=== PATIENT | male | born 1950 | race Caucasian/White ===

== ENCOUNTER 2019-08-24 15:55 | Outpatient (RCR) | payer MEDICARE, BC, SELFPAY ==
--- NOTE | 2019-08-24 16:46 | PTOPEVAL ---
Thank you for referring this patient to [facility]. Please review, sign, date and return this plan of care [facility]. I agree with and certify that the following plan of care is medically necessary. Referring Physician Date Admitting Provider: Attending Provider: PHYSICIAN NOT ON STAFF Referring Provider: *PT Outpatient Evaluation Start: 08/24/19 16:10 Freq: Status: Active Protocol: Document 08/24/19 16:10 Mary Lou (Rec: 08/24/19 16:37 [facility] [id number]) Therapy Assessment Status Assessment Status Assessment Status Evaluation Evaluation Information Problem Diagnosis R hip OA Onset 08/20/19 Subjective Information patient reports he has been Query Text:As Reported By Patient/ having pain in the R hip for Family about 6 months or more. he reports the pain is getting to be too severe to allow him to sleep or walk. he reports he has recently had x-rays of the R hip. he reports he has arthritis of the R hip. he reports he is not currently planning on having a R hip replacement. he reports the pain comes and goes. Prior Level of Function Comments Additional Prior Level of Function patient reports no injury. he Comments reports prior to 6 months ago, he was having some mild discomfort, but was able to complete all walking, sleeping , and functional activities. Pain Assessment Timing of Pain Assessment Timing of Pain Assessment Assessment Pain Scale Pain Scale Used Numeric (1 - 10) Self Report Pain Assessment Right Hip(s) Reported Pain Level 2 Pain Description Burning Pain Radiation Right Leg Radicular Pain Location down and across thigh into the medial R knee Pain Frequency Chronic,Continuous Current Pain Intensity 2 Lowest Pain Intensity 2 Greatest Pain Intensity 6 Pain Aggravating Factors Prolonged Position,Walking, Weight Bearing/Standing,Other Pain Aggravating Factors Other Pain Aggravating Factors sleeping Pain Relief Interventions Used By Medication Patient Pain Score Pain Score 2: Self Report Additional Pain Score Comments bilateral numbness/tingling in
== END 2019-09-22 14:55 | disposition home or self-care (01) ==
LOC: CHSPT 15:55
DX: M16.11 Unilateral primary osteoarthritis, right hip (principal)
CPT/HCPCS: 97014; 97110; 97140; 97161; G0283

== ENCOUNTER 2019-08-31 12:32 | Outpatient (CLI) | payer MEDICARE, BC, SELFPAY ==
[2019-09-02 10:05] LABS: Testosterone Total 318 ng/dL (250-1100)
== END 2019-08-31 12:33 | disposition home or self-care (01) ==
PROVIDERS: PCP Family Medicine
DX: N52.9 Male erectile dysfunction, unspecified (principal)
CPT/HCPCS: 36415; 84403

== ENCOUNTER 2019-09-03 12:54 | Outpatient (CLI) | payer MEDICARE, BC, SELFPAY ==
--- NOTE | ~2019-09-03 | US_ITS ---
US scrotum doppler INDICATION: Left testicular swelling for 5 days TECHNIQUE: Testicular sonogram utilizing grayscale and color Doppler FINDINGS: The testes are normal in size and appearance. No focal lesions are seen. The right testes measures 3 x 1.6 x 2.7 cm centimeters, and the left testis measures 3 x 1.7 x 2.7 cm cm. There is nor mal vascular flow to both testes. There is a 2.4 cm left epididymal cysts. There is a left varicocele. IMPRESSION: 1. Left varicocele. 2: 2.4 cm left epididymal cyst. Reviewed, dictated and finalized at location A. T TOSSER
== END 2019-09-03 12:55 | disposition home or self-care (01) ==
PROVIDERS: PCP Family Medicine
DX: N50.3 Cyst of epididymis (principal); I86.1 Scrotal varices
CPT/HCPCS: 76870; 93976

== ENCOUNTER 2021-07-11 13:43 | Outpatient (CLI) | payer MEDICARE, BC, SELFPAY ==
[2021-07-14 08:23] LABS: Tissue Transglutaminase IgA Ab <1.0 U/mL (<15.0)
[2021-07-14 18:52] LABS: Tissue Transglutaminase IgG Ab <1.0 U/mL (<15.0)
[2021-07-18 21:02] LABS: ANCA Screen Negative (Negative)
[2021-07-19 21:43] LABS: Endomysial Ab (IgA) Screen Negative (Negative)
[2021-08-25 13:06] LABS: Gliadin Gluten IgA 6.9
== END 2021-07-11 13:44 | disposition home or self-care (01) ==
PROVIDERS: PCP Family Medicine; Visit Provider Internal Medicine Gastroenterology
DX: R19.7 Diarrhea, unspecified (principal); K62.5 Hemorrhage of anus and rectum
CPT/HCPCS: 36415; 83516; 86021; 86255; 86671

== ENCOUNTER 2021-08-15 11:01 | Outpatient (CLI) | payer MEDICARE, BC, SELFPAY ==
[2021-08-15 11:55] LABS: Alanine Aminotransferase 77 U/L (4-50); Albumin Level 4.3 g/dL (3.5-5.1); Alkaline Phosphatase 85 U/L (38-126); Anion Gap 9 mmol/L (8-16); Aspartate Amino Transferase 55 U/L (17-59); Blood Urea Nitrogen 17 mg/dL (9-20); Calcium 9.2 mg/dL (8.4-10.2); Carbon Dioxide 20 mmol/L (22-30); Chloride 109 mmol/L (98-107); Cholesterol 190 mg/dL (0-200); Estimated Glomerular Filt Rate > 60; Glucose 121 mg/dL (65-110); HDL Direct 33 mg/dL; Sodium 138 mmol/L (137-145); Triglycerides 123 mg/dL (<150)
[2021-08-15 12:06] LABS: LDL Cholesterol Direct 109 mg/dL
[2021-08-15 12:53] LABS: Hemoglobin A1C 6.8 % (<5.7)
[2021-08-15 14:47] LABS: Basophils Absolute Auto 0.1 K/mm3 (0.0-0.1); Basophils Percent Auto 0.8 % (0.2-1.2); Eosinophils Absolute Auto 0.3 K/mm3 (0-0.3); Hemoglobin 14.6 g/dL (14.0-18.0); Immature Granulocyte Absolute 0.03 K/mm3 (0.00-0.031); Immature Granulocyte Percent A 0.3 % (0-0.5); Lymphocytes Absolute Auto 2.31 K/mm3 (0.9-3.2); Mean Corpuscular HGB Conc 33.2 g/dl (32-36); Mean Corpuscular Hemoglobin 31.1 pg (26-34); Mean Corpuscular Volume 93.6 fl (80-100); Mean Platelet Volume 10.3 fl (7.4-10.4); Monocytes Absolute Auto 1.1 K/mm3 (0.1-0.6); Monocytes Percent Auto 11.1 % (2.6-8.5); Neutrophils Absolute Auto 6.2 K/mm3 (1.3-6.7); Neutrophils Percent Auto 61.8 % (45.5-73.1); Platelet Count Result 195 k/mm3 (150-375); Red Cell Distribution Width 12.7 % (11.5-14.5)
== END 2021-08-15 11:02 | disposition home or self-care (01) ==
LOC: ANHLAB 11:04
PROVIDERS: PCP Family Medicine; Visit Provider Family Medicine
DX: E03.9 Hypothyroidism, unspecified (principal); I10 Essential (primary) hypertension; E78.2 Mixed hyperlipidemia; E11.9 Type 2 diabetes mellitus without complications
CPT/HCPCS: 36415; 80053; 80061; 83036; 84443; 85025

== ENCOUNTER 2021-08-29 09:16 | Outpatient (CLI) | payer MEDICARE, BC, SELFPAY ==
--- NOTE | ~2021-08-29 | US_ITS ---
EXAMINATION: US abdomen limited DATE: 08/29/2021 09:59 INDICATION: Abnormal liver function tests TECHNIQUE: Multiple grayscale and Doppler ultrasound images of the abdomen were obtained. COMPARISON: CT, 10/17/2012 FINDINGS: Bowel gas obscures visualization of the pancreas. The liver demonstrates increased echogeni city, heterogenous echotexture, and decreased through transmission. No surface nodularity. Normal hep atopetal flow in the main portal vein. The gallbladder is normal with no abnormal wall thickening, pe richolecystic fluid or stones. The normal common bile duct measures 3 mm. There was no sonographic Mu rphy sign. IMPRESSION: 1. Diffuse hepatic steatosis. Reviewed, dictated and finalized at location A. NCIAL PLANNING ADVISER
== END 2021-08-29 09:17 | disposition home or self-care (01) ==
LOC: ANHIMG 09:21
PROVIDERS: PCP Family Medicine; Visit Provider Family Medicine
DX: R74.8 Abnormal levels of other serum enzymes (principal); K76.0 Fatty (change of) liver, not elsewhere classified
CPT/HCPCS: 76705

== ENCOUNTER 2021-12-25 12:16 | Outpatient (CLI) | payer MEDICARE, BC, SELFPAY ==
[2021-12-25 12:38] LABS: Alanine Aminotransferase 25 U/L (6-50); Albumin Level 4.1 g/dL (3.5-5.1); Alkaline Phosphatase 73 U/L (38-126); Anion Gap 4 mmol/L (8-16); Aspartate Amino Transferase 24 U/L (17-59); Bilirubin,Total 0.9 mg/dL (0.2-1.3); Blood Urea Nitrogen 14 mg/dL (9-20); Calcium 8.7 mg/dL (8.4-10.2); Carbon Dioxide 26 mmol/L (22-30); Chloride 108 mmol/L (98-107); Estimated Glomerular Filt Rate > 60; Glucose 108 mg/dL (65-110); Potassium 4.2 mmol/L (3.4-5.0); Sodium 138 mmol/L (137-145)
== END 2021-12-25 12:17 | disposition home or self-care (01) ==
PROVIDERS: PCP Family Medicine; Visit Provider Nurse Practitioner Gerontology
DX: E11.9 Type 2 diabetes mellitus without complications (principal); R74.8 Abnormal levels of other serum enzymes
CPT/HCPCS: 36415; 80053; 83036

== ENCOUNTER 2024-06-02 12:22 | Outpatient (CLI) | payer MEDICARE, BC, SELFPAY ==
[2024-06-02 12:46] LABS: Basophils Absolute Auto 0.1 K/mm3 (0.0-0.1); Basophils Percent Auto 0.8 % (0.2-1.2); Eosinophils Absolute Auto 0.3 K/mm3 (0-0.3); Eosinophils Percent Auto 3.4 % (0-4.4); Hematocrit 43.5 % (42.0-52.0); Hemoglobin 14.5 g/dL (14.0-18.0); Immature Granulocyte Absolute 0.03 K/mm3 (0.00-0.031); Immature Granulocyte Percent A 0.4 % (0-0.5); Lymphocytes Absolute Auto 1.84 K/mm3 (0.9-3.2); Lymphocytes Percent Auto 24.2 % (18.3-44.2); Mean Corpuscular HGB Conc 33.3 g/dl (32-36); Mean Corpuscular Volume 92.9 fl (80-100); Mean Platelet Volume 9.7 fl (7.4-10.4); Monocytes Absolute Auto 0.7 K/mm3 (0.1-0.6); Monocytes Percent Auto 9.3 % (2.6-8.5); Neutrophils Absolute Auto 4.7 K/mm3 (1.3-6.7); Neutrophils Percent Auto 61.9 % (45.5-73.1); Platelet Count Result 211 k/mm3 (150-375); Red Blood Count 4.68 M/mm3 (4.6-6.20); Red Cell Distribution Width 12.6 % (11.5-14.5); White Blood Count 7.6 K/mm3 (4.5-10.0)
[2024-06-02 13:04] LABS: Alanine Aminotransferase 22 U/L (6-50); Alkaline Phosphatase 70 U/L (38-126); Anion Gap 3 mmol/L (4-12); Aspartate Amino Transferase 29 U/L (17-59); Bilirubin,Total 0.8 mg/dL (0.2-1.3); Blood Urea Nitrogen 16 mg/dL (9-20); Calcium 8.8 mg/dL (8.4-10.2); Carbon Dioxide 31 mmol/L (22-30); Chloride 105 mmol/L (98-107); Cholesterol 161 mg/dL (0-200); Estimated Glomerular Filt Rate > 60; Glucose 113 mg/dL (65-110); HDL Direct 33 mg/dL; Potassium 4.5 mmol/L (3.4-5.0); Sodium 139 mmol/L (137-145); Triglycerides 132 mg/dL (<150); Uric Acid 6.8 mg/dL (3.5-8.5)
[2024-06-02 13:15] LABS: LDL Cholesterol Direct 93 mg/dL
== END 2024-06-02 12:23 | disposition home or self-care (01) ==
PROVIDERS: PCP Family Medicine; Visit Provider Family Medicine
DX: E79.0 Hyperuricemia without signs of inflammatory arthritis and tophaceous disease (principal); E78.2 Mixed hyperlipidemia; I10 Essential (primary) hypertension
CPT/HCPCS: 36415; 80053; 80061; 84550; 85025

== ENCOUNTER 2024-06-16 08:25 | Outpatient (CLI) | payer MEDICARE, BC, SELFPAY ==
[2024-06-16 10:43] LABS: Hepatitis C Virus Antibody Negative (Negative)
== END 2024-06-16 08:26 | disposition home or self-care (01) ==
LOC: ANHLAB 08:26
PROVIDERS: PCP Family Medicine; Referring Provider Family Medicine; Visit Provider Physician Assistant
DX: Z00.00 Encounter for general adult medical examination without abnormal findings (principal); R73.9 Hyperglycemia, unspecified
CPT/HCPCS: 36415; 83036; 86803

== ENCOUNTER 2024-06-18 07:50 | Outpatient (CLI) | payer MEDICARE, BC, SELFPAY ==
[2024-06-18 11:37] LABS: Hemoglobin A1C 6.4 % (<5.7)
== END 2024-06-18 07:51 | disposition home or self-care (01) ==
PROVIDERS: PCP Family Medicine; Visit Provider Family Medicine
DX: R73.9 Hyperglycemia, unspecified (principal)
CPT/HCPCS: 36415; 83036

== ENCOUNTER 2024-08-21 08:10 | Outpatient (CLI) | payer MEDICARE, BC, SELFPAY ==
--- OUTSIDE RECORDS SUMMARY | 2024-08-21 08:26 | XMS_ITS | Referral Summary ---
Author Organization [facility] Phys[facility] Office Building [address] Address [address] [place] [address] Care Team Providers Care Filemaker Developer Name Role Phone No, Physician Primary Care Provider [phone] Encounters Date Type Department Care Team Description 08/13/2024 8:17 AM AIR TRAFFIC CONTROL SPECIALIST - 08/13/2024 11:59 PM AIR TRAFFIC CONTROL SPECIALIST Hospital Encounter [facility] [address] [place] [address] Abnormal weight loss Discharge Disposition: Discharge to home or self care from Last 3 Months Allergies No known active allergies Medications metFORMIN (GLUCOPHAGE) 500 mg tablet Take 500 mg by mouth 2 (two) times a day with meals. Active tamsulosin (FLOMAX) 0.4 mg extended release capsule Take 0.4 mg by mouth nightly. Active rosuvastatin (CRESTOR) 5 mg tablet Take 5 mg by mouth nightly. Active cholecalciferol (VITAMIN D-3) 2,000 unit capsule Take 2,000 Units by mouth nightly. Active calcium carbonate-vitam in D3 500 mg(1,250mg) -400 unit chewable tablet Take 2 tablets by mouth nightly. Active acidophilus-pec tin, citrus 100 million cell-10 mg capsule Take 1 capsule by mouth nightly. Active inulin (FIBER GUMMIES) 2 gram tablet,chewable Take 1 tablet/chew tab by mouth nightly as needed. Active celecoxib (CeleBREX) 100 mg capsuleIndicati ons:Postoperati ve Acute Pain Take 1 capsule (100 mg total) by mouth 2 (two) times a day 60 capsule 2 09/23/2018 Active celecoxib (CeleBREX) 100 mg capsuleIndicati ons:Osteoarthri tis Take 1 capsule (100 mg total) by mouth 2 (two) times a day 60 capsule 2 03/30/2019 Active sildenafil (VIAGRA) 100 mg tablet TK 1 T PO QD 1 HOUR B SEXUAL ACTIVITY PRN 06/26/2019 Active Active Problems Problem Noted Date Diagnosed Date COPD (chronic obstructive pulmonary disease) Diabetes 07/29/2018 Fusion of spine, cervical region 07/29/2018 Incomplete tear of right rotator cuff 03/31/2018 Assessment & Plan (03/31/2018 10:22 AM CDT): Patient does not have a full-thickness rotator cuff tear by MRI. He has chronic symptoms that have not respond to physical therapy and/or cortisone. As such would recommend open decompressive surgery of the shoulder with acromioplasty and subacromial decompression. If in the event the patient has a high-grade partial-thickness tear that is flapping on stable repair of the rotator cuff may be required. This generally could be performed comfortably with a deltoid mini splitting incision in conjunction with a pain pump. He was advised he has some underlying arthritis and may has some symptoms persist with the shoulder. Typically patients start physical therapy two weeks out from their surgery. He is facing cervical decompressive surgery and fusion by our learning development specialist this fall after his class reunion. He plans on seeing Dr. Fox to help coordinate surgery. If both can be done in the same setting he would prefer but if restrictions on the cervical work would prevent him from rehabbing the arm I would not recommend doing both at the same time. If Dr. Fox did not feel cervical surgery would interfere with is ability to attend therapy regarding the arm then both could be done at the same time. Complete tear of right rotator cuff 03/11/2018 Assessment & Plan (03/11/2018 12:10 PM CDT): Patient likely has a high-grade partial-thickness tear or full-thickness focal tear of the rotator cuff. Would recommend an MRI to evaluate the integrity of the cuff initiate appropriate treatment once results are available Social History Tobacco Use Types Packs/Day Years Used Date Smoking Tobacco: Former Cigarettes Q uit: 04/07/2018 Smokeless Tobacco: Never Tobacco Cessation:Counseling Given: Yes Comments:exposed to second hand smoke Alcohol Use Standard Drinks/Week Comments Yes 7 (1 standard drink = 0.6 oz pur e alcohol) PHQ-2 Answer Date Recorded PHQ-2 Score 0 09/20/2018 Sex and Gender Information Value Date Recorded Sex Assigned at Not on file Legal Sex Male 7:26 PM AIR TRAFFIC CONTROL SPECIALIST Gender Identity Male 09/24/2019 9:10 PM CDT Sexual Orientation Straight 09/24/2019 9: 08 PM CDT Last Filed Vital Signs Vital Sign Reading Time Taken Comments Blood Pressure 122/84 10/23/2018 8:51 AM CDT Pulse 69 07/29/2018 7:59 AM AIR TRAFFIC CONTROL SPECIALIST Temperature 36.6 C (97.9 F) 07/29/2018 7:59 AM AIR TRAFFIC CONTROL SPECIALIST Respiratory Rate 20 07/29/2018 7:59 AM AIR TRAFFIC CONTROL SPECIALIST Oxygen Saturation 92% 07/29/2018 8:27 AM AIR TRAFFIC CONTROL SPECIALIST Inhaled Oxygen Concentration - - Weight 92.5 kg (204 lb) 08/20/2019 9:22 AM AIR TRAFFIC CONTROL SPECIALIST Height 183.1 cm (6' 0.1 ) 08/20/2019 9:22 AM AIR TRAFFIC CONTROL SPECIALIST Body Mass Index 27.59 08/20/2019 9:22 AM AIR TRAFFIC CONTROL SPECIALIST Plan of Treatment Not on file Medical Devices Implanted Type Area Pharmacy Services Director Device Identifier Shelf Expiration Date Model / Serial / Lot Veena Spine [id number] Nba-C 8-10mm 5.6mm Level 2 Lock Spine Long Plate Bone - [id number] Implanted:Qty: 1 on 07/28/2018 by Jose Fox MD at [facility] N/A: Cervical-L umbar Spine Veena Spine 09/12/2022 [id number] / / [id number] [employer] [id number] Nba-C Vertebridge 17x6.2-9mm 7d Lordotic 14mm Taper Cage .8cc - [id number] Implanted:Qty: 1 on 07/28/2018 by Jose Fox MD at [facility] N/A: Cervical-L umbar Spine [employer] 03/15/2021 [id number] / / [id number] [employer] [id number] Nba-C Vertebridge 17x4.2-7mm 7d Lordotic 14mm Taper Cage .61cc - [id number] Implanted:Qty: 1 on 07/28/2018 by Jose Fox MD at [facility] N/A: Cervical-L umbar Spine [employer] 05/15/2022 [id number] / / [id number] Veena Spine [id number] Nba-C 5-7mm Level 2 Lock Spine Standard Plate Bone - [id number] Implanted:Qty: 1 on 07/28/2018 by Jose Fox MD at [facility] N/A: Cervical-L umbar Spine Veena Spine 08/15/2022 [id number] / / [id number] Explanted Type Area Pharmacy Services Director Device Identifier Shelf Expiration Date Model / Serial / Lot Pin Distraction [place] L12 Mm Self Drill Sterile Cervical Distractor System - [id number] Explanted:Qty: 2 on 07/28/2018 at [facility] N/A: Cervical-L umbar Spine [employer] [id number] / / Procedures Procedure Name Priority Date/Time Associated Diagnosis Comments CT ABDOMEN PELVIS W CONTRAST Schedule Routine, Read Routine (OP Routine) 08/13/2024 8:58 AM AIR TRAFFIC CONTROL SPECIALIST Abnormal weight loss EGFR Routine 07/29/2018 6:53 AM AIR TRAFFIC CONTROL SPECIALIST from Last 3 Months or Most Recently Relevant to Health Maintenance Results * CT Abdomen Pelvis W Contrast (08/13/2024 8:58 AM AIR TRAFFIC CONTROL SPECIALIST) Anatomical Region Laterality Modality Body N/A Computed Tomogra phy 08/14/2024 2:44 PM AIR TRAFFIC CONTROL SPECIALIST Narrative 08/14/2024 2:50 PM AIR TRAFFIC CONTROL SPECIALIST EXAM DESCRIPTION: CT ABDOMEN PELVIS W CONTRAST REASON FOR STUDY: abnormal weight loss Patient complains of bilateral epigastric pain on and off for the last year, last episode was yesterday. History of hernia repair TECHNIQUE: CT scan of the abdomen and pelvis performed with intravenous and without oral contrast using helical scanning technique with dynamic intravenous contrast injection. Reconstructed coronal and sagittal MPR images reviewed. All images stored on PACS. Automated exposure control was used as a dose optimization technique for this examination. CONTRAST TYPE/DOSE: 100mL of IOVERSOL 350 MG IODINE/ML INTRAVENOUS SYRINGE injected via intravenous COMPARISON: None FINDINGS: LOWER CHEST: No significant pulmonary abnormalities. No effusion. Moderate emphysematous changes at the lung bases. Calcified granulomas. LIVER: Decreased attenuation as seen with fibrofatty changes. 1 cm cyst right hepatic lobe. GALLBLADDER: No stones identified. No wall thickening or inflammatory changes. BILE DUCTS: No intrahepatic or extrahepatic ductal dilatation. SPLEEN: Normal size. No focal lesions. Calcified granulomas. PANCREAS: No identified cystic or solid masses. No significant calcifications. No adjacent inflammation or peripancreatic fluid collections. Pancreatic duct not dilated. ADRENALS: Normal. KIDNEYS/URINARY TRACT: 17 mm cyst right kidney. No visualized stones. No hydronephrosis or hydroureter. Symmetric enhancement. Urinary bladder is unremarkable. GI: No dilated bowel loops. No obvious wall thickening. Normal appendix. Scattered diverticular disease without diverticulitis. Small hiatal hernia. PERITONEUM: No ascites or free air. RETROPERITONEUM: No mass or adenopathy. REPRODUCTIVE: Enlarged prostate. Penile prosthesis with reservoir anterior left hemipelvis. VASCULATURE: No abdominal aortic aneurysm. MUSCULOSKELETAL: Multilevel degenerative changes are present without fracture. No concerning lesions are present. OTHER: Small bilateral inguinal hernias containing only fat, left greater than right. IMPRESSION: Moderate emphysematous changes at the lung bases. Fatty infiltration of the liver. 1 cm cyst right hepatic lobe. 17 mm cyst right kidney. Diverticulosis. No evidence of diverticulitis. Small hiatal hernia. Enlarged prostate. Small bilateral inguinal hernias containing only fat, left greater than right. THIS IS AN ELECTRONICALLY VERIFIED FINAL REPORT 08/14/2024 2:50 PM - Electronically signed by Zia Boyce M.D. KT T: Report ID: [id number] Reading Location: [id number] Procedure Note Zia Boyce MD - 08/14/2024 EXAM DESCRIPTION: CT ABDOMEN PELVIS W CONTRAST REASON FOR STUDY: abnormal weight loss Patient complains of bilateral epigastric pain on and off for the lastyear, last episode was yesterday. History of hernia repair TECHNIQUE: CT scan of the abdomen and pelvis performed with intravenousand without oral contrast using helical scanning technique with dynamic intravenous contrast injection. Reconstructed coronal and sagittal MPRimages reviewed. All images stored on PACS. Automated exposure control was usedas a dose optimization technique for this examination. CONTRAST TYPE/DOSE: 100mL of IOVERSOL 350 MG IODINE/ML INTRAVENOUSSYRINGE injected via intravenous COMPARISON: None FINDINGS: LOWER CHEST: No significant pulmonary abnormalities. Noeffusion. Moderate emphysematous changes at the lung bases. Calcified granulomas. LIVER: Decreased attenuation as seen with fibrofatty changes. 1 cm cyst right hepatic lobe. GALLBLADDER: No stones identified. No wall thickening or inflammatory changes. BILE DUCTS: No intrahepatic or extrahepatic ductal dilatation. SPLEEN: Normal size. No focal lesions. Calcified granulomas. PANCREAS: No identified cystic or solid masses. No significant calcifications. No adjacent inflammation or peripancreatic fluidcollections. Pancreatic duct not dilated. ADRENALS: Normal. KIDNEYS/URINARY TRACT: 17 mm cyst right kidney. No visualized stones.No hydronephrosis or hydroureter. Symmetric enhancement. Urinary bladderis unremarkable. GI: No dilated bowel loops. No obvious wall thickening. Normal appendix. Scattered diverticular disease without diverticulitis. Small hiatalhernia. PERITONEUM: No ascites or free air. RETROPERITONEUM: No mass or adenopathy. REPRODUCTIVE: Enlarged prostate. Penile prosthesis with reservoiranterior left hemipelvis. VASCULATURE: No abdominal aortic aneurysm. MUSCULOSKELETAL: Multilevel degenerative changes are present without fracture. No concerning lesions are present. OTHER: Small bilateral inguinal hernias containing only fat, leftgreater than right. IMPRESSION: Moderate emphysematous changes at the lung bases. Fatty infiltration of the liver. 1 cm cyst right hepatic lobe. 17 mm cyst right kidney. Diverticulosis. No evidence of diverticulitis. Small hiatal hernia. Enlarged prostate. Small bilateral inguinal hernias containing only fat, left greater thanright. THIS IS AN ELECTRONICALLY VERIFIED FINAL REPORT 08/14/2024 2:50 PM - Electronically signed by Zia Boyce M.D. KT T: Report ID: [id number] Reading Location: [place] [address] Indira Castano MD IMG CT PROCEDURES Final R esult * eGFR (07/29/2018 6:53 AM AIR TRAFFIC CONTROL SPECIALIST) eGFR 96 mL/min/1.7 3 m2 EVAN MERCER Comment: Interpretive Data Reference Interval Normal >/= 90 mL/min/1.73m2 Mildly decreased* 60 - 89 mL/min/1.73m2 Mildly to moderately decreased 45 - 59 mL/min/1.73m2 Moderately to severely decreased 30 - 44 mL/min/1.73m2 Severely decreased 15 - 29 mL/min/1.73m2 Kidney Failure < 15 mL/min/1.73m2 *Relative to young adult level If -Maldivian multiply value by 1.16. Estimated glomerular filtration rate is determined by the CKD-EPI equation recommended by the National Kidney Foundation (KDIGO 2012 Clinical Practice Guideline for the Evaluation and Management of Chronic Kidney Disease. Kidney Intnl Suppl Jul 2012;3:1). The CKD-EPI equation should not be used for patients with unstable renal function and has not been validated in children and those over 70. Current interpretive data was last reviewed 2016. Blood specimen (specimen) 07/29/2018 6:53 AM AIR TRAFFIC CONTROL SPECIALIST 07/29/2018 7:36 AM AIR TRAFFIC CONTROL SPECIALIST Narrative EVAN MERCER - 07/29/2018 8:01 AM AIR TRAFFIC CONTROL SPECIALIST Heike LUCERO LAB BLOOD ORDERABLES Final R esult [facility]AN [address] [address] Department [place] [address] from Last 3 Months or Most Recently Relevant to Health Maintenance Insurance MEDICARE MEDICARE [employer] TRADITIONAL OOS Advance Directives For more information, please contact: [phone] * Full Code (Latest Code Status on File) Date Activated Date Inactivated Comments 07/28/2018 2:06 PM 07/29/2018 2:58 PM Care Teams Filemaker Developer Relationship Specialty Start Date End Date No, Physician PCP - General 08/06/24
--- OUTSIDE RECORDS SUMMARY | 2024-08-21 08:26 | XMS_ITS | Referral Summary ---
Author Organization [facility] Address [address] [place] [address] Care Team Providers Care Explosive Operator Bomb Name Role Phone Terrie Oneill MD Primary Care Provider + Source Comments [facility],non-owned Affiliates and Associated Physician Practices is amultiple site organization consisting of ambulatory clinics and hospital sitesin [place], [place], [place] and [place]. This disclosure is being madepursuant to the Care Everywhere program and may not contain all information available regarding this patient. Last updated 18.[facility] Encounters Date Type Department Care Team Description 06/16/2024 Travel 06/16/2024 10:30 AM REGION MANAGER Office Visit [facility] - Urology [address] [place] [address], [facility] [place] [id number] Autumn Hunter, AUTOMATIC SPINNING LATHE SETTER-FAMILY AND CONSUMER SCIENCE PROFESSOR Benign prostatic hyperplasia, unspecified whether lower urinary tract symptoms present (Primary Dx); Left inguinal pain 06/10/2024 Travel from Last 3 Months Allergies Active Allergy Reactions Criticality Noted Date Comments Ibuprofen Vomiting 08/18/2021 Medications * Be aware that medications may not be up to date on this document. Alwaysverify current medications with the patient. Medication Sig Dispensed Refills Start Date End Date Status ascorbic acid (VITAMIN C) 125 MG TABS half tablet Take by mouth once daily Active VITAMIN D, CHOLECALCIFEROL, PO Take 1 Dose by mouth once daily Active aspirin EC (ECOTRIN) 81 MG tablet Take 1 (one) tablet by mouth once daily Active cholestyramine light (QUESTRAN LIGHT; PREVALITE) 4 g packet Take 9 g by mouth 3 times daily Active magnesium 30 MG tablet Take 400 mg by mouth once daily Active omeprazole (PriLOSEC) 20 MG capsule Take 1 (one) capsule by mouth daily before breakfast Active tamsulosin (Flomax) 0.4 MG capsule Take 1 (one) capsule by mouth once daily At the same time every day after a meal. 90 capsule 4 06/16/2024 Active finasteride (Proscar) 5 MG tablet Take 1 (one) tablet by mouth once daily 90 tablet 4 06/16/2024 Active Active Problems Problem Noted Date Diagnosed Date Impotence due to erectile dysfunction 04/14/2020 Displacement of penile prosthesis implant Urinary frequency Urinary urgency Immunizations Name Administration Dates Next Due INFLUENZA VACCINE, TRIV. (AF LURIA, FLUZONE TRIVALENT; 6MO+) (IIV3) 04/15/2015,04/03/2014 INFLUENZA VACCINE 04/03/2011 INFLUENZA VACCINE, HIGH-DOSE , QUADR. (FLUZONE HIGH-DOSE QUADRIVALENT; 65Y+), 0.7 ML (HD-IIV4) 04/21/2018,04/07/2017,03/15/2016 PNEUMOCOCCAL PPSV23 04/21/2017 Pneumococcal Pcv13 Conj 04/17/2016 TDAP (7yrs+) 04/17/2010 ZOSTER VACCINE, LIVE 04/17/2016 Social History Tobacco Use Types Packs/Day Years Used Date Smoking Tobacco: Former Cigarettes Smokeless Tobacco: Former Tobacco Cessation:Counseling Given: No Comments:quit 2020 Alcohol Use Standard Drinks/Week Comments Yes 2 (1 standard drink = 0.6 oz pur e alcohol) socially Sex and Gender Information Value Date Recorded Sex Assigned at Not on file Gender Identity Not on file Sexual Orientation Not on file Last Filed Vital Signs Vital Sign Reading Time Taken Comments Blood Pressure 138/81 06/16/2024 10:12 AM REGION MANAGER Pulse 65 06/16/2024 10:12 AM REGION MANAGER Temperature 36.3 C (97.3 F) 06/16/2024 10:12 AM REGION MANAGER Respiratory Rate 18 06/16/2024 10:12 AM REGION MANAGER Oxygen Saturation 99% 06/16/2024 10:12 AM REGION MANAGER Inhaled Oxygen Concentration - - Weight 93.4 kg (206 lb) 06/16/2024 10:12 AM REGION MANAGER Height 182.9 cm (6') 06/16/2024 10:12 AM REGION MANAGER Body Mass Index 27.94 06/16/2024 10:12 AM REGION MANAGER Plan of Treatment Upcoming Encounters Date Type Department Care Team (Late st Contact Info) Description 12/15/2024 11:30 AM CDT Office Visit [facility] - Urology [address] [place] [address], [place] [address] Autumn Hunter, AUTOMATIC SPINNING LATHE SETTER-FAMILY AND CONSUMER SCIENCE PROFESSOR [address] [place] [address] [place] [address] Medical Devices Implanted Type Area Interlocking Pavement Installer Device Identifier Shelf Expiration Date Model / Serial / Lot Pros Penl Ams 700 Ms Electrician Helper Powerhouse Ams Conceal Implanted:Qty: 1 on 04/14/2020 by Derek Ovalle MD at [facility] N/A: Penis [place] [employer] 03/15/2022 [id number] / / [id number] Description:apart of total Kit Acc Ams 700 Penl Pros Implanted:Qty: 1 on 04/14/2020 by Derek Ovalle MD at [facility] N/A: Penis [place] [employer]ed 09/01/2024 [id number] / / [id number] Description:apart of total Ams 700 Cx Ms Pump Iz Implanted:Qty: 1 on 04/14/2020 by Derek Ovalle MD at [facility] N/A: Penis 10/16/2020 [id number] / / [id number] Pros Penl Ams 700 Ms Electrician Helper Powerhouse Ams Conceal Implanted:Qty: 1 on 12/15/2020 by Derek Ovalle MD at [facility] Left: Sandra Garcia [employer] Scimed 11/08/2022 [id number] / / [id number] Kit Acc Ams 700 Penl Pros Implanted:Qty: 1 on 12/15/2020 by Derek Ovalle MD at [facility] Left: Sandra Garcia [employer] Sc[employer]ed [id number] / / Description:apart of total Procedures Procedure Name Priority Date/Time Associated Diagnosis Comments NE MSR PVR U&/BLADD CAPCTY US NON Routine 06/16/2024 10:18 AM REGION MANAGER Benign prostatic hyperplasia, unspecified whether lower urinary tract symptoms present from Last 3 Months Results * NE MSR PVR U&/BLADD CAPCTY US NON (06/16/2024 10:18 AM REGION MANAGER) Narrative Ryan Dickson LPN - 06/16/2024 10:18 AM REGION MANAGER Ryan Dickson LPN 06/16/2024 1:42 PM PVR-52ml Autumn Hunter APRN-FAMILY AND CONSUMER SCIENCE PROFESSOR PROCEDURE/MINOR SURGICAL ORDERABLES from Last 3 Months Advance Directives * Full Code (Latest Code Status on File) Date Activated Date Inactivated Comments 12/15/2020 10:15 AM 12/16/2020 10:57 AM * Full Code Date Activated Date Inactivated Comments 04/14/2020 6:31 PM 04/15/2020 2:24 PM Care Teams Explosive Operator Bomb Relationship Specialty Start Date End Date Terrie Oneill MD [address] [place] [address] PCP - General 08/20/19
--- OUTSIDE RECORDS SUMMARY | 2024-08-21 08:26 | XMS_ITS | Clinical Summary ---
Author Organization [facility] Address [address] [place] [id number] Care Team Providers Care Mechanic Assistant Name Role Phone Terrie Oneill MD Primary Care Provider [phone] Social History Tobacco Use Types Packs/Day Years Used Date Smoking Tobacco: Never Assessed Sex and Gender Information Value Date Recorded Sex Assigned at Not on file Legal Sex Male 8:22 PM CDT Gender Identity Not on file Sexual Orientation Not on file Plan of Treatment Health Maintenance Due Date Last Done Comments Colorectal Cancer Screening Colonoscopy (10 Years) 1950 Hepatitis C 1968 Annual Medicare Wellness Visit 2015 Zoster Vaccines (2 of 3) 06/12/2016 04/17/2016 DTaP, Tdap and Td Vaccines (2 - Td or Tdap) 04/17/2020 04/17/2010 COVID-19 Vaccine (3 - season) 2024 04/11/2021, 03/21/2021 Influenza Adult (#1) 2024 04/21/2018, 04/07/2017, 03/15/2016, Additional history exists RSV Immunization or 60+ Years (1 - 1-dose 75+ series) 2025 Pneumococcal Vaccine: 65+ Years Completed 04/21/2017, 04/17/2016 Meningococcal B Vaccine Aged Out No l onger eligible based on patient's age to complete this topic Meningococcal Vaccine Aged Out No melanie lonnie eligible based on patient's age to complete this topic RSV Immunizations Under 20 Months Aged Out No longer eligible based on patient's age to complete this topic Insurance MEDICARE [facility] Care Teams Mechanic Assistant Relationship Specialty Start Date End Date Terrie Oneill MD [address] [facility] [address] [place] [address] PCP - General FAMILY PRACTICE 05/25/22
--- OUTSIDE RECORDS SUMMARY | 2024-08-21 08:26 | XMS_ITS | Clinical Summary ---
[facility] [address] [place] [id number] Care Team Providers Care Allergist Immunologist Name Role Phone No, Physician Primary Care Provider [phone] Allergies No known active allergies Medications metFORMIN [...] cervical decompressive surgery and fusion by our prepress specialist this fall after his class reunion. [...] initiate appropriate treatment once results are available Encounters Date Type Department Care Team Description 08/13/2024 8:17 AM INVENTORY CONTROL PLANNER - 08/13/2024 11:59 PM INVENTORY CONTROL PLANNER Hospital Encounter [facility] [address] [place] [address] Abnormal weight loss Discharge Disposition: Discharge to home or self care from Last 3 Months Surgical History Surgery Date Site/Laterality Comments CARPAL TUNNEL RELEASE Bilateral LASIK CATARACT EXTRACTION HERNIA REPAIR 07/15/2015 - 07/14/2016 UHR ABELARDO FUNDOPLICATION 07/15/1999 - 07/14/2000 VASECTOMY SHOULDER ARTHROSCOPY 05/14/2018 Right Right Shoulder - Subacromial Decompression, Acromioplasty, and Pain Pump Insertion - Right DE QUERVAIN'S RELEASE Left Medical History Medical History Date Comments COPD (chronic obstructive pulmonary disease) (HC C) Sleep apnea Diabetes (HCC) Rotator cuff injury right Cataract Family History Medical History Relation Name Comments Cancer Brother 1 liver Cirrhosis Brother 1 Heart disease Brother 1 No Known Problems Brother 2 Alcohol abuse Father Cirrhosis Father Arrhythmia Mother Bradley's palsy Sister Relation Name Status Comments Brother 1 Brother 2 Alive Father Mother Sister Alive Social History Tobacco Use Types Packs/Day Years [...] on file Legal Sex Male 7:26 PM INVENTORY CONTROL PLANNER Gender Identity Male 09/24/2019 9:10 PM CDT Sexual Orientation Straight 09/24/2019 9: 08 PM CDT Obstetrics History Last Filed Vital Signs Vital Sign Reading Time Taken Comments Blood Pressure 122/84 10/23/2018 8:51 AM CDT Pulse 69 07/29/2018 7:59 AM INVENTORY CONTROL PLANNER Temperature 36.6 C (97.9 F) 07/29/2018 7:59 AM INVENTORY CONTROL PLANNER Respiratory Rate 20 07/29/2018 7:59 AM INVENTORY CONTROL PLANNER Oxygen Saturation 92% 07/29/2018 8:27 AM INVENTORY CONTROL PLANNER Inhaled Oxygen Concentration - - Weight 92.5 kg (204 lb) 08/20/2019 9:22 AM INVENTORY CONTROL PLANNER Height 183.1 cm (6' 0.1 ) 08/20/2019 9:22 AM INVENTORY CONTROL PLANNER Body Mass Index 27.59 08/20/2019 9:22 AM INVENTORY CONTROL PLANNER Plan of Treatment Health Maintenance Due Date Last Done Comments Albumin Creatinine Ratio, Urine 1950 Colon Cancer Screening-Colonoscopy 1950 Depression Screening 1950 Fall Risk Assessment 1950 Hemoglobin A1C 1950 Hepatitis C Screening 1950 Dilated Eye Exam 1950 Foot Exam 1950 Lipid Panel 1950 Hepatitis B Screening 1968 Well Visit 65+ 2015 Zoster Vaccine (2 of 3) 06/12/2016 04/17/2016 eGFR 07/29/2019 07/29/2018, 07/21/2018 DTaP/Tdap/Td Vaccine (2 - Td or Tdap) 04/17/2020 04/17/2010 Influenza Vaccine (#1) 2024 8, 04/07/2017, 03/15/2016, Additional history exists Pneumococcal vaccine 65+ Completed 04/21/2017, 10/2015 Abdominal Aortic Aneurysm (A AA) Screen Completed 08/13/2024 Medical Devices Implanted Type Area Hand Tufter Device Identifier Shelf Expiration Date Model / Serial / Lot [employer] [id number] Nba-C 8-10mm 5.6mm Level 2 Lock Spine Long Plate Bone - [id number] Implanted:Qty: 1 on 07/28/2018 by Jose Fox MD at [facility] N/A: Cervical-L umbar Spine [employer] 09/12/2022 [id number] / / [id number] [employer] [id number] Nba-C Vertebridge 17x6.2-9mm 7d Lordotic 14mm Taper Cage .8cc - [id number] Implanted:Qty: 1 on 07/28/2018 by Jose Fox MD at [facility] N/A: Cervical-L umbar Spine [employer] 03/15/2021 [id number] / / [id number] [employer] [id number] Nba-C Vertebridge 17x4.2-7mm 7d Lordotic 14mm Taper Cage .61cc - [id number] Implanted:Qty: 1 on 07/28/2018 by Jose Fox MD at [facility] N/A: Cervical-L umbar Spine [employer] 05/15/2022 [id number] / / [id number] [employer] [id number] Nba-C 5-7mm Level 2 Lock Spine Standard Plate Bone - [id number] Implanted:Qty: 1 on 07/28/2018 by Jose Fox MD at [facility] N/A: Cervical-L umbar Spine [employer] 08/15/2022 [id number] / / [id number] Explanted Type Area Hand Tufter Device Identifier Shelf Expiration Date Model / Serial / Lot Pin Distraction Trent L12 Mm Self Drill Sterile Cervical Distractor System - [id number] Explanted:Qty: 2 on 07/28/2018 at [facility] N/A: Cervical-L umbar Spine [employer] [id number] / / Procedures Procedure Name Priority Date/Time Associated Diagnosis Comments CT ABDOMEN PELVIS W CONTRAST Schedule Routine, Read Routine (OP Routine) 08/13/2024 8:58 AM INVENTORY CONTROL PLANNER Abnormal weight loss EGFR Routine 07/29/2018 6:53 AM INVENTORY CONTROL PLANNER from Last 3 Months or Most Recently Relevant to Health Maintenance Results * CT Abdomen Pelvis W Contrast (08/13/2024 8:58 AM INVENTORY CONTROL PLANNER) Anatomical Region Laterality Modality Body N/A Computed Tomogra phy 08/14/2024 2:44 PM INVENTORY CONTROL PLANNER Narrative 08/14/2024 2:50 PM INVENTORY CONTROL PLANNER EXAM DESCRIPTION: CT ABDOMEN PELVIS W CONTRAST [...] Zia Boyce M.D. KT T: Report ID: [id number] Reading Location: [id number] Procedure Note Zia Boyce MD - 08/14/2024 [...] Zia Boyce M.D. KT T: Report ID: [id number] Reading Location: [place] [address] Indira Castano MD IMG CT PROCEDURES Final R esult * eGFR (07/29/2018 6:53 AM INVENTORY CONTROL PLANNER) eGFR 96 mL/min/1.7 3 m2 EVAN MERCER Comment: Interpretive Data Reference Interval Normal >/= 90 mL/min/1.73m2 Mildly decreased* 60 - 89 mL/min/1.73m2 Mildly to moderately decreased 45 - 59 mL/min/1.73m2 Moderately to severely decreased 30 - 44 mL/min/1.73m2 Severely decreased 15 - 29 mL/min/1.73m2 Kidney Failure < 15 mL/min/1.73m2 *Relative to young adult level If -[place] multiply value by 1.16. Estimated glomerular filtration [...] 2016. Blood specimen (specimen) 07/29/2018 6:53 AM INVENTORY CONTROL PLANNER 07/29/2018 7:36 AM INVENTORY CONTROL PLANNER Narrative EVAN MERCER - 07/29/2018 8:01 AM INVENTORY CONTROL PLANNER Heike [facility] LAB BLOOD ORDERABLES Final R esult [facility] [id number] [address] [place] [address] from Last 3 Months or Most Recently Relevant to Health Maintenance Insurance MEDICARE MEDICARE [employer] Advance Directives For more information, please contact: [phone] * Full Code (Latest Code Status on File) Date Activated Date Inactivated Comments 07/28/2018 2:06 PM 07/29/2018 2:58 PM Care Teams Allergist Immunologist Relationship Specialty Start Date End Date No, Physician PCP - General 08/06/24
--- OUTSIDE RECORDS SUMMARY | 2024-08-21 08:26 | XMS_ITS | Patient Health Summary ---
Author Organization [facility] Address [address] [place] [address] Care Team Providers Care Good Humor Vendor Name Role Phone Terrie Oneill MD Primary Care Provider + Note from [facility] [place],non-owned Affiliates and Associated Physician Practices is amultiple site organization consisting of ambulatory clinics and hospital sitesin [place], [place], [place] and [place]. This disclosure is being madepursuant to the Care Everywhere program and may not contain all information available regarding this patient. Last updated 18.[facility] Allergies * Ibuprofen(Vomiting) Medications * Be aware that medications may not be up to date on this document. Alwaysverify current medications with the patient. * ascorbic acid (VITAMIN C) 125 MG TABS half tablet Take by mouth once daily * VITAMIN D, CHOLECALCIFEROL, PO Take 1 Dose by mouth once daily * aspirin EC (ECOTRIN) 81 MG tablet Take 1 (one) tablet by mouth once daily * cholestyramine light (QUESTRAN LIGHT; PREVALITE) 4 g packet Take 9 g by mouth 3 times daily * magnesium 30 MG tablet Take 400 mg by mouth once daily * omeprazole (PriLOSEC) 20 MG capsule Take 1 (one) capsule by mouth daily before breakfast * tamsulosin (Flomax) 0.4 MG capsule(Started 06/16/2024) Take 1 (one) capsule by mouth once daily At the same time every day after a meal. 4 refills by 06/16/2025 * finasteride (Proscar) 5 MG tablet(Started 06/16/2024) Take 1 (one) tablet by mouth once daily 4 refills by 06/16/2025 Active Problems Problem Noted Date Diagnosed Date Impotence due to erectile dysfunction 04/14/2020 Displacement of penile prosthesis implant Urinary frequency Urinary urgency Immunizations * INFLUENZA VACCINE, TRIV. (AFLURIA, FLUZONE TRIVALENT; 6MO+) (IIV3)(Given 04/15/2015, 04/03/2014) * INFLUENZA VACCINE(Given 04/03/2011) * INFLUENZA VACCINE, HIGH-DOSE, QUADR. (FLUZONE HIGH-DOSE QUADRIVALENT; 65Y+), 0.7 ML (HD-IIV4)(Given 04/21/2018, 04/07/2017, 03/15/2016) * PNEUMOCOCCAL PPSV23(Given 04/21/2017) * Pneumococcal Pcv13 Conj(Given 04/17/2016) * TDAP (7yrs+)(Given 04/17/2010) * ZOSTER VACCINE, LIVE(Given 04/17/2016) Social History Tobacco Use Types Packs/Day Years [...] Comments Blood Pressure 138/81 06/16/2024 10:12 AM EGG CRATER Pulse 65 06/16/2024 10:12 AM EGG CRATER Temperature 36.3 C (97.3 F) 06/16/2024 10:12 AM EGG CRATER Respiratory Rate 18 06/16/2024 10:12 AM EGG CRATER Oxygen Saturation 99% 06/16/2024 10:12 AM EGG CRATER Inhaled Oxygen Concentration - - Weight 93.4 kg (206 lb) 06/16/2024 10:12 AM EGG CRATER Height 182.9 cm (6') 06/16/2024 10:12 AM EGG CRATER Body Mass Index 27.94 06/16/2024 10:12 AM EGG CRATER Medical Devices Implanted Type Area Computer Security Coordinator Device Identifier Shelf Expiration Date Model / Serial / Lot Pros Penl Ams 700 Ms Student Ams Conceal Implanted:Qty: 1 on 04/14/2020 by Derek Ovalle MD at [facility] N/A: Penis [employer] 03/15/2022 [id number] / / [id number] Description:apart of total Kit Acc Ams 700 Penl Pros Implanted:Qty: 1 on 04/14/2020 by Derek Ovalle MD at [facility] N/A: Penis [employer] 09/01/2024 [id number] / / [id number] Description:apart of total Ams 700 Cx Ms Pump Iz Implanted:Qty: 1 on 04/14/2020 by Derek Ovalle MD at [facility] N/A: Penis 10/16/2020 [id number] / / [id number] Pros Penl Ams 700 Ms Student Ams Conceal Implanted:Qty: 1 on 12/15/2020 by Derek Ovalle MD at [facility] Left: Groin [employer] 11/08/2022 [id number] / / [id number] Kit Acc Ams 700 Penl Pros Implanted:Qty: 1 on 12/15/2020 by Derek Ovalle MD at [facility] Left: Groin [employer] [id number] / / Description:apart of total Procedures * IL MSR PVR U&/BLADD CAPCTY US NON(Performed 06/16/2024) Performed for Benign prostatic hyperplasia, unspecified whether lower urinary tract symptoms present * URINALYSIS AUTO - POINT OF CARE (AMB) [facility](Performed 06/15/2022) Performed for Urinary frequency * PATHOLOGY TISSUE(Performed 12/15/2020) Performed for Displacement of penile prosthesis implant, initial encounter (HCC) * ENDOTRACHEAL TUBE NOTE(Performed 12/15/2020) * IL CYSTOURETHROSCOPY(Performed 12/15/2020) Performed for Displacement of penile prosthesis implant, initial encounter (FORM[facility]LY [facility]) * INSERTION PENILE PROSTHESIS (ANY TYPE)(Performed 12/15/2020) Performed for Displacement of penile prosthesis implant, initial encounter (FORMER[facility]) * SARS-COV-2 (COVID-19) IN HOUSE(Performed 12/13/2020) Performed for Displacement of penile prosthesis implant, sequela, Urinary frequency, Pre-op testing * URINALYSIS NO MICROSCOPIC NO CULTURE(Performed 12/01/2020) Performed for Displacement of penile prosthesis implant, sequela, Urinary frequency, Pre-op testing * BASIC METABOLIC PANEL (CALCIUM TOTAL)(Performed 12/01/2020) Performed for Displacement of penile prosthesis implant, sequela, Urinary frequency, Pre-op testing * CBC W AUTO DIFFERENTIAL(Performed 12/01/2020) Performed for Displacement of penile prosthesis implant, sequela, Urinary frequency, Pre-op testing * CULTURE URINE(Performed 12/01/2020) Performed for Displacement of penile prosthesis implant, sequela, Urinary frequency, Pre-op testing * IL ANAL/URINARY MUSCLE STUDY(Performed 06/24/2020) Performed for Frequency of micturition , Urinary urgency * IL CYSTOMETROGRAM W/PETROLEUM TRANSPORT DRIVER(Performed 06/24/2020) Performed for Frequency of micturition , Urinary urgency * INSERTION PENILE PROSTHESIS (ANY TYPE)(Performed 04/14/2020) Performed for Erectile dysfunction, unspecified erectile dysfunction type * ENDOTRACHEAL TUBE NOTE(Performed 04/14/2020) * SARS-COV-2 (COVID-19) IN HOUSE(Performed 04/09/2020) Performed for COVID-19 ruled out by laboratory testing * URINALYSIS NO MICROSCOPIC NO CULTURE(Performed 04/06/2020) Performed for Impotence due to erectile dysfunction, Pre-op testing * CULTURE URINE(Performed 04/06/2020) Performed for Bacteriuria , Impotence due to erectile dysfunction, Pre-op testing * HEMOGLOBIN A1C(Performed 04/06/2020) Performed for Hyperglycemia, unspecified , Impotence due to erectile dysfunction, Pre-op testing, Screening for diabetes mellitus, Bacteriuria * BASIC METABOLIC PANEL (CALCIUM TOTAL)(Performed 04/06/2020) Performed for Impotence due to erectile dysfunction, Pre-op testing * CBC W AUTO DIFFERENTIAL(Performed 04/06/2020) Performed for Impotence due to erectile dysfunction, Pre-op testing * IL MSR PVR U&/BLADD CAPCTY US NON(Performed 12/03/2019) Performed for Benign prostatic hyperplasia without lower urinary tract symptoms * URINALYSIS AUTO - POINT OF CARE (AMB) [facility](Performed 12/03/2019) Performed for Benign prostatic hyperplasia without lower urinary tract symptoms * URINALYSIS AUTO - POINT OF CARE (AMB) [facility](Performed 08/31/2019) Performed for Benign prostatic hyperplasia with urinary frequency Results * IL MSR PVR U&/BLADD CAPCTY US NON (06/16/2024 10:18 AM EGG CRATER) Narrative Ryan Dickson LPN - 06/16/2024 10:18 AM EGG CRATER Ryan Dickson LPN 06/16/2024 1:42 PM PVR-52ml Autumn Hunter BUSINESS JOB TITLES-SPINNER CONTINUOUS PROCEDURE/MINOR SURGICAL ORDERABLES * URINALYSIS AUTO - POINT OF CARE (AMB) [facility] (06/15/2022 11:40 AM EGG CRATER) Only the most recent of3 resultswithin the time period is included. Glucose UA neg Bilirubin UA POCT neg Ketones UA POCT neg Specific [place] UA 1.020 Blood Urine POCT neg pH UA 5.5 Protein UA neg Urobilinogen UA neg Nitrite UA neg WBC UA neg Urine URINE / Unknown 06/15/2022 1 1:40 AM EGG CRATER Derek Ovalle MD LAB - POINT OF CAR E ORDERABLES * PATHOLOGY TISSUE (12/15/2020 8:42 AM CDT) Case Report Surgical Pathology Report Case: [id number] Authorizing Provider: Derek Ovalle MD Collected: 12/15/2020 08:42 AM Ordering Location: [facility] OP Received: 12/15/2020 11:35 AM Pathologist: Manuel Brumfield MD Specimen: Foreign Object, Penile 12/26/2020 3:09 PM CDT [facility] Final Diagnosis Foreign body, removal: - Grossly unremarkable medical hardware 12/26/2020 3:09 PM CDT [facility] PATH[facility] LAB Microscopic Description and Comment Gross only diagnosis 12/26/2020 3:09 PM CDT [facility] PATHOLOG[facility] Clinical History Herniated penile prosthesis 12/26/2020 3:09 PM CDT [facility] PATH[facility] Gross Description The requisition and specimen label(s) are identified with the patient's name,Scott Viveros. Received fresh, specimen A , is a fluid-filled transparent bag 6 x 5 cm with a narrow tubing 4 x 2 cm. No inscriptions on the device. This is for gross exam only. MA 12/26/2020 3:09 PM CDT [facility] PATH[facility] Disclaimer The performance characteristics of all immunohistochemical and indirect immunofluorescence stains (if any) cited in this report were determined by the Histopathology Laboratory of [facility]. Some of these tests were developed by our own laboratory and have not been cleared or approved by the US Food and Drug Administration. The FDA does not require this test to go through premarket FDA review. These tests are used for clinical purposes. They should not be regarded as investigational or for research. This laboratory is certified under the Clinical Laboratory Improvement Amendments (CLIA) as qualified to perform high complexity clinical laboratory testing. This case has been personally reviewed and interpreted by the attending (teaching) pathologist. 12/26/2020 3:09 PM CDT [facility] PATH[facility] Embedded Images 12/26/2020 3:09 PM T [facility] PATH[facility] Gross only MISCELLANEOUS SAMPLES / Unknown 12/15/2020 8:42 AM CDT 12/15/2020 11:35 AM CDT Comment:Pre-op diagnosis: Displacement of penile prosthesis implant, initial encounter Derek Ovalle MD LAB - PATHOLOGY/CY TOLOGY ORDERABLES Performing Organization Address City/State/[facility] Co de Phone Number [facility] PATHOLOG[facility] LAB [address] [place] [address], [facility] [phone] * ETT LINE PERFORMABLE (12/15/2020 8:33 AM CDT) Narrative Candy Villeda DO - 12/15/2020 8:33 AM CDT Candy Villeda DO 12/15/2020 9:20 AM Endotracheal Tube Placement: Patient Location: OR. Intubation Event Date/Time: 12/15/2020 8:00 AM Procedure: intubation (85830). Procedure Section: Sedation: IV sedation. Induction: standard IV Patient Position: sniffing Mask Ventilation: difficult and required 2 people (2 handed). Blade Type: Video Blade Size: 3 Laryngoscopy View: grade 2 (partial cords) Intubation Adjuncts: cricoid pressure, video laryngoscope, stylet and Eschmann introducer Tube: endotracheal tube Placement: oral Tube type: cuff - inflated Tube Size (MM): 7 Measured From: teeth Cuff Inflated With: air Number of Attempts: 2. Placement Verified By: bilateral breath sounds, chest auscultation and CO2 monitor Tube secured with: adhesive tape. Dentition unchanged? Yes Difficult Airway? Yes. Technique: video laryngoscope Reason: anterior larynx and small mouth Procedure Start Time: 12/15/2020 8:00 AM. Staff Section Anesthesia Provider: Judy Arias MD Provider #1: Candy Villeda DO. Provider #2: Hawa Page, BUSINESS JOB TITLES-MACHINIST BENCH, Performed the procedure. Additional Comments: Difficult anterior airway with small mouth. initially attempted Mac 3 DL with 8.0 ETT. Ultimately required video scope with eschmann introducer and 7.0 ETT. . Judy Arias MD GENERAL ANEST HESIA ORDERABLES * SARS-COV-2 (COVID-19) PRE-SURICAL/PROCEDURE (12/13/2020 10:51 AM CDT) Only the most recent of2 resultswithin the time period is included. COVID-19 PCR Not detected Not detected 12/14/2020 5:00 AM CDT [facility] MICROBIOLOGY Microbiology SPECIMEN FROM NASOPHARYNGEAL STRUCTURE / Unknown Collection / Unknown 12/13/2020 10:51 AM CDT 12/13/2020 1:54 PM CDT Narrative [facility] MICROBIOLOGY - 12/14/2020 5:00 AM CDT This nucleic acid amplification assay performance was validated by [facility]biology [facility]. This test has been authorized by the Food and Drug administration (FDA)under an Emergency Use Authorization (EUA). This test has been validated in accordance with the FDA's guidance document Policy for Diagnostic Testing in Laboratories Certified to perform High Complexity Testing under CLIA prior to Emergency Use Authorization for Coronavirus Disease-2019 during the Public Health Emergency issued on September 12, 2019. FDA independent review of this validation is pending. This test is only authorized for the duration of time the declaration that circumstances exist justifying the authorization of emergency use of in vitro diagnostic tests for detection of SARS-CoV-2 virus and/or diagnosis of COVID-19 infection under section 564(b)(1) of the Act, 21 U.S.C 360bbb-3 (b)(1), unless the authorization is terminated or revoked sooner. Fact Sheets for this EUA assay are available upon request. Derek Ovalle MD LAB - MICROBIOLOGY ORDERABLES Performing Organization Address City/[facility]/ZIP Co de Phone Number [facility] MICROBIOLOGY [address] [phone] * (ABNORMAL) URINALYSIS NO MICROSCOPIC NO CULTURE (12/01/2020 10:57 AM CDT) Only the most recent of2 resultswithin the time period is included. Color UA YELLOW YELLOW [facility] Appearance CLEAR CLEAR [facility] Specific [place] UA 1.020 1.001 - 1.035 [facility] pH UA 5.5 5.0 - 8.0 [facility] Glucose UA NEGATIVE NEGATIVE [facility] Bilirubin UA NEGATIVE NEGATIVE [facility] Ketone UA NEGATIVE NEGATIVE [facility] Blood UA NEGATIVE NEGATIVE [facility] Protein UA NEGATIVE NEGATIVE [facility] Nitrite UA NEGATIVE NEGATIVE [facility] Leukocyte UA 1+(A) NEGATIVE [facility] Comment: Test Performed at: [facility] [facility] [address] [place] [address] SHEILA MARCUS DO,MPH Urine URINE SPECIMEN OBTAINED BY CLEAN CATCH PROCEDURE / Unknown 12/01/2020 10:57 AM CDT 12/01/2020 11:01 AM CDT Derek Ovalle MD LAB - URINALYSIS O RDERABLES Performing Organization Address City/[facility]/ZIP Co de Phone Number [facility] [phone] [place] [address] * CULTURE URINE (12/01/2020 10:57 AM CDT) Only the most recent of2 resultswithin the time period is included. Pathologist [facility] Culture [facility] Comment: CULTURE, URINE, ROUTINE Micro Number: [id number] Test Status: Final Specimen Source: URINE, CLEAN CATCH Specimen Quality: Adequate Result: No Growth REPORT COMMENT: FASTING:NO Test Performed at: [facility] [address] ATTILA HANSEN MD Urine URINE SPECIMEN OBTAINED BY CLEAN CATCH PROCEDURE / Unknown 12/01/2020 10:57 AM CDT 12/01/2020 11:01 AM CDT Derek Ovalle MD LAB - MICROBIOLOGY ORDERABLES [address] [address] * CBC WITH DIFFERENTIAL (12/01/2020 10:57 AM CDT) Only the most recent of2 resultswithin the time period is included. Pathologist [facility] White Blood Cell Count 10.4 3.8 - 10.8 Thousand/u L [facility] RBC 4.70 4.20 - 5.80 Million/uL [facility] Hemoglobin 14.5 13.2 - 17.1 g/dL [facility] Hematocrit 43.1 38.5 - 50.0 % [facility] MCV 91.7 80.0 - 100.0 fL [facility] MCH 30.9 27.0 - 33.0 pg [facility] MCHC 33.6 32.0 - 36.0 g/dL [facility] RDW 13.0 11.0 - 15.0 % [facility] Platelet Count 257 140 - 400 Thousand/u L [facility] MPV 10.7 7.5 - 12.5 fL [facility] Neutrophil Absolute 6698 1500 - 7800 cells/uL [facility] Absolute Bands [facility] Metamyelocytes Absolute [facility] Myelocytes Absolute [facility] Absolute Prolymphocytes [facility] Lymphocytes Absolute 2340 850 - 3900 cells/uL [facility] Absolute Monocytes 946 200 - 950 cells/uL [facility] Eosinophils Absolute 343 15 - 500 cells/uL [facility] Basophils Absolute 73 0 - 200 cells/uL [facility] Absolute Blasts [facility] nRBC Absolute [facility] Granulocytes % 64.4 % [facility] Band Neutrophil [facility] Metamyelocytes [facility] Myelocytes [facility] Promyelocytes [facility] Lymphocytes % 22.5 % [facility] Lymphocyte Reactive [facility] Monocytes % 9.1 % [facility] Eosinophils % 3.3 % [facility] Basophils % 0.7 % [facility] Comment: Test Performed at: [employer] [id number] [place] [employer] [address] SHEILA MARCUS DO,MPH Blasts [facility] nR [facility] Comments [facility] Comment: Test Performed at: [employer] [address] [place] [address] SHEILA MARCUS DO,MPH Blood BLOOD SPECIMEN / Unknown 12/01/2020 10:57 AM CDT 12/01/2020 11:01 AM CDT Derek Ovalle MD LAB - HEMATOLOGY O RDERABLES Performing Organization Address [facility] Co de Phone Number [facility] [phone] [place] [address] * BASIC METABOLIC PANEL (CALCIUM TOTAL) (12/01/2020 10:57 AM CDT) Only the most recent of2 resultswithin the time period is included. Glucose 106 65 - 139 mg/dL [facility] Comment: Non-fasting reference interval BUN 17 7 - 25 mg/dL [facility] Creatinine 0.95 0.70 - 1.18 mg/dL [facility] Comment: For patients >49 years of age, the reference limit for Creatinine is approximately 13% higher for people identified as -[place]. eGFR by MDRD 81 > OR = 60 mL/min/1 .73m2 [facility] eGFR by MDRD 94 > OR = 60 mL/min/1 .73m2 [facility] BUN/Creatinine Ratio NOT APPLICABLE 6 - 22 (calc) [facility] Sodium 139 135 - 146 mmol/L [facility] Potassium 4.2 3.5 - 5.3 mmol/L [facility] Chloride 107 98 - 110 mmol/L [facility] CO2 27 20 - 32 mmol/L [facility] Calcium 8.7 8.6 - 10.3 mg/dL [facility] Comment: Test Performed at: [employer] [address] [address] [place] [address] SHEILA MARCUS DO,MPH Blood BLOOD SPECIMEN / Unknown 12/01/2020 10:57 AM CDT 12/01/2020 11:01 AM CDT Derek Ovalle MD LAB - CHEMISTRY OR DERABLES Performing Organization Address [facility]/ZIP Co de Phone Number [facility] [address] [place] [address] * IL CYSTOMETROGRAM W/PETROLEUM TRANSPORT DRIVER, IL ANAL/URINARY MUSCLE STUDY (06/24/2020 10:06 AM EGG CRATER) Derek Winslow MD - 06/24/2020 10:06 AM EGG CRATER Derek Ovalle MD 06/24/2020 10:09 AM Urodynamic Results Indication for Procedure: Urinary urgency/frequency, failed response to flomax monotherapy Noninvasive Uroflow: Comments: Pt did not arrive with full bladder, not performed Cystometrogram: First Sensation: 170 ml Capacity: 341 ml Compliance: normal Instability: yes Urge incontinence: no Stress incontinence: no at capacity VLPP: n/a DLPP: n/a EMG: normal Comments: Pressure Flow Study: Qmax: 11 ml/s Qave: 5 ml/s Pdet at Qmax: 78 cm H2O Voiding time: 33 sec EMG: normal Residual: 0 ml Comments: flat prolonged curve c/w obstruction Findings: Pt with outlet obstruction and instability. Plan: Did not do well on alpha blockade alone. I would recommend anticholinergic as well (though would want alpha blockade back on board). Start ditropan xl 10 mg daily and flomax 0.4 mg daily. F/U with me in 3 months. Derek Ovalle MD Derek Ovalle MD PROCEDURE/MINOR MARCUS RGICAL ORDERABLES * ETT LINE PERFORMABLE (04/14/2020 3:07 PM CDT) Narrative Laila De Adna Anes Asst - 04/14/2020 3:07 PM CDT Laila De Anda Anes Assmoshe 04/14/2020 3:08 PM Endotracheal Tube Placement: Patient Location: OR. Procedure: intubation (13080). Procedure Section: Sedation: under general anesthesia. Indications for Airway Management: anesthesia Procedure pretreatments used? No Induction: standard IV Patient Position: supine Mask Ventilation: easy. Blade Type: [place] Blade Size: 4 Laryngoscopy View: grade 2 (partial cords) Intubation Adjuncts: stylet and cricoid pressure Tube: endotracheal tube Placement: oral Tube type: cuff - inflated Tube Size (MM): 8 Depth of Insertion (CM): 23 Measured From: lips Cuff Inflated With: air Number of Attempts: 2. Placement Verified By: direct visualization, bilateral breath sounds, chest auscultation and CO2 monitor Tube secured with: adhesive tape. Dentition unchanged? Yes Difficult Airway? Yes. Reason: small mouth and anterior larynx Staff Section Anesthesia Provider: Kwasi Clifford MD, Performed the procedure Provider #1: Leandro Castañeda DO. Kwasi Clifford MD GENERAL ANESTHESIA O RDERABLES * HEMOGLOBIN A1C (04/06/2020 12:42 PM CDT) Hemoglobin A1c 6.1 4.4 - 6.3 % 04/06/2020 5:17 PM CDT [facility] Estimated Average Glucose 128 mg/dL 04/06/2020 5:17 PM CDT [facility] Comment: HbA1c Interpretation: Treatment target values recommended by ADA and other clinical organizations should be used to evaluate metabolic control in patients. Treatment Target Values: Normal : < 5.7% Pre-diabetes: 5.7-6.4% Diabetes: Equal to or greater than 6.5% Reference: [place] Diabetes Association Standards of Care in Diabetes -2014 In patients 70 years and older consider HbA1c target range of 7.0-7.5% Reference: Diabetes Mellitus in Older People: Position Statement on behalf of the International Association of Gerontology and Geriatrics (IAGG), the Diabetes Working Democrat for Older People (EDWPOP), and the International Task Force of Experts in Diabetes. Michael Jack, et al. J [place] [employer] Association. 2012 Test results diagnostic of diabetes should be repeated for confirmation. The Sebia Capillary 2 assay for the measurement of HbA1c is a National Glycohemoglobin Standardization Program (NGSP)certified method. Blood BLOOD SPECIMEN / Unknown Lab Venipuncture / Unknown 04/06/2020 12:42 PM CDT 04/06/2020 2:53 PM CDT Derek Ovalle MD LAB - CHEMISTRY OR DERABLES [facility] [address] [address], [facility] [phone] * IL MSR PVR U&/BLADD CAPCTY US NON (12/03/2019 12:29 PM CDT) Narrative Adrian Su - 12/03/2019 12:29 PM CDT Adrian Su 12/03/2019 12:45 PM Bladder scan 48 ml Melly Livingston BUSINESS JOB TITLES-SPINNER CONTINUOUS PROCEDURE/MIN OR SURGICAL ORDERABLES Care Teams Good Humor Vendor Relationship Specialty Start Date End Date Terrie Oneill MD [address] [place], [place] [id number] PCP - General 08/20/19
--- OUTSIDE RECORDS SUMMARY | 2024-08-21 08:26 | XMS_ITS | Clinical Summary ---
Author Organization [facility] Address [address] [facility] [place] [address] Care Team Providers Care Act Tutor Name Role Phone Terrie Oneill MD Primary Care Provider + Source Comments [facility],non-owned Affiliates and Associated Physician Practices is amultiple site organization consisting of ambulatory clinics and hospital sitesin [place], [place], [place] and [place]. This disclosure is being madepursuant to the Care Everywhere program and may not contain all information available regarding this patient. Last updated 18.[facility] Allergies Active Allergy Reactions Criticality Noted Date [...] penile prosthesis implant Urinary frequency Urinary urgency Encounters Date Type Department Care Team Description 06/16/2024 10:30 AM HOURLY TEAM MEMBERS Office Visit [facility] - Urology [address] [place] [address] Autumn Hunter, METAL SMELTER-BUTTON SAWYER Benign prostatic hyperplasia, unspecified whether lower urinary tract symptoms present (Primary Dx); Left inguinal pain 06/16/2024 Travel 06/10/2024 Travel from Last 3 Months Immunizations Name Administration Dates Next Due INFLUENZA [...] Comments Blood Pressure 138/81 06/16/2024 10:12 AM HOURLY TEAM MEMBERS Pulse 65 06/16/2024 10:12 AM HOURLY TEAM MEMBERS Temperature 36.3 C (97.3 F) 06/16/2024 10:12 AM HOURLY TEAM MEMBERS Respiratory Rate 18 06/16/2024 10:12 AM HOURLY TEAM MEMBERS Oxygen Saturation 99% 06/16/2024 10:12 AM HOURLY TEAM MEMBERS Inhaled Oxygen Concentration - - Weight 93.4 kg (206 lb) 06/16/2024 10:12 AM HOURLY TEAM MEMBERS Height 182.9 cm (6') 06/16/2024 10:12 AM HOURLY TEAM MEMBERS Body Mass Index 27.94 06/16/2024 10:12 AM HOURLY TEAM MEMBERS Plan of Treatment Upcoming Encounters Date Type Department Care Team (Late st Contact Info) Description 12/15/2024 11:30 AM CDT Office Visit [facility] - Urology [facility] [facility], [place] [address] Autumn Hunter, METAL SMELTER-BUTTON SAWYER [address] [place] [address] [place] [address] Health Maintenance Due Date Last Done Comments COLOGUARD (AGES 45-75) - COLON CA SCREENING 1950 COLON MONITORING 1950 COLONOSCOPY - COLON CA SCREENING 1950 CT COLONOGRAPHY - COLON CA SCREENING 1950 Colorectal Cancer Screening 1950 FIT - COLON CA SCREENING 1950 FLEX SIG - COLON CA SCREENING 1950 LIPID TESTING 1950 MEDICARE AWV 12 MONTHS 1950 HEPATITIS C SCREENING 05/24/1968 AAA SCREENING 2015 ZOSTER VACCINE (2 of 3) 06/12/2016 04/17/2016 DTAP/TDAP/TD VACCINES (2 - Td or Tdap) 04/17/2020 04/17/2010 COVID-19 VACCINE ( - season) 2024 INFLUENZA VACCINE (#1) 2024 8, 04/07/2017, 03/15/2016, Additional history exists DEPRESSION SCREENING 07/15/2024 Respiratory Syncytial Virus (RSV) Vaccine Pt: or over 60 yrs (1 - 1-dose 75+ series) 2025 PNEUMOCOCCAL VACCINE 50+ Completed 04/21/2017, 10/2015 HEPATITIS B VACCINE Aged Out No longe r eligible based on patient's age to complete this topic HIB VACCINE Aged Out No longer eligi ble based on patient's age to complete this topic HPV VACCINE Aged Out No longer eligi ble based on patient's age to complete this topic MENINGOCOCCAL (Group B) VACCINE Aged Out No longer eligible based on patient's age to complete this topic MENINGOCOCCAL VACCINE Aged Out No melanie lonnie eligible based on patient's age to complete this topic Medical Devices Implanted Type Area Tobacco Warehouse Agent Device Identifier Shelf Expiration Date Model / Serial / Lot Pros Penl Ams 700 Ms Ordnance Mechanic Ams Conceal Implanted:Qty: 1 on 04/14/2020 by Derek Oavlle MD at [facility] N/A: Penis [place] [employer] Scimed 03/15/2022 [id number] / / [id number] Description:apart of total Kit Acc Ams 700 Penl Pros Implanted:Qty: 1 on 04/14/2020 by Derek Ovalle MD at [facility] N/A: Penis [place] [employer] 09/01/2024 [id number] / / [id number] Description:apart of total Ams 700 Cx Ms Pump Iz Implanted:Qty: 1 on 04/14/2020 by Derek Ovalle MD at [facility] N/A: Penis 10/16/2020 [id number] / / [id number] Pros Penl Ams 700 Ms Ordnance Mechanic Ams Conceal Implanted:Qty: 1 on 12/15/2020 by Derek Ovalle MD at [facility] Left: Groin [place] [employer] Sc[employer] 11/08/2022 [id number] / / [id number] Kit Acc Ams 700 Penl Pros Implanted:Qty: 1 on 12/15/2020 by Derek Ovalle MD at [facility] Left: Groin [employer] [employer] Scimed [id number] / / Description:apart of total Procedures Procedure Name Priority Date/Time Associated Diagnosis Comments IL MSR PVR U&/BLADD CAPCTY US NON Routine 06/16/2024 10:18 AM HOURLY TEAM MEMBERS Benign prostatic hyperplasia, unspecified whether lower urinary tract symptoms present from Last 3 Months Results * IL MSR PVR U&/BLADD CAPCTY US NON (06/16/2024 10:18 AM HOURLY TEAM MEMBERS) Narrative Ryan DicksonMADHUN - 06/16/2024 10:18 AM HOURLY TEAM MEMBERS Ryan Dickson, ROSE 06/16/2024 1:42 PM PVR-52ml Autumn Hunter MET[employer] SMELTER-[employer]TON SAWYER PROCEDURE/MINOR SURGICAL ORDERABLES from Last 3 Months Advance Directives * Full Code (Latest Code Status on File) Date Activated Date Inactivated Comments 12/15/2020 10:15 AM 12/16/2020 10:57 AM * Full Code Date Activated Date Inactivated Comments 04/14/2020 6:31 PM 04/15/2020 2:24 PM Care Teams Act Tutor Relationship Specialty Start Date End Date Terrie Oneill MD [address] [place] [address] PCP - General 08/20/19
[2024-08-21 09:31] LABS: Alanine Aminotransferase 31 U/L (6-50); Alkaline Phosphatase 72 U/L (38-126); Anion Gap 7 mmol/L (4-12); Aspartate Amino Transferase 27 U/L (17-59); Bilirubin,Total 0.7 mg/dL (0.2-1.3); Blood Urea Nitrogen 15 mg/dL (9-20); Calcium 8.8 mg/dL (8.4-10.2); Carbon Dioxide 29 mmol/L (22-30); Chloride 106 mmol/L (98-107); Estimated Glomerular Filt Rate > 60; Glucose 121 mg/dL (65-110); Potassium 4.3 mmol/L (3.4-5.0); Sodium 142 mmol/L (137-145)
== END 2024-08-21 08:11 | disposition home or self-care (01) ==
PROVIDERS: PCP Family Medicine; Visit Provider Internal Medicine Gastroenterology
DX: K76.0 Fatty (change of) liver, not elsewhere classified (principal); K76.89 Other specified diseases of liver
CPT/HCPCS: 36415; 80053

== ENCOUNTER 2024-09-16 20:24 | Emergency (ER) | payer MEDICARE, BC, SELFPAY ==
[2024-09-16 20:27] VITALS: BP 126/83; PULSE 96; RESP 18; TEMP 36.1; O2SAT 98
--- NOTE | 2024-09-16 20:35 | ED.ABDPAIN ---
HPI - Abdominal Pain General Chief Complaint: Abdominal Pain Stated Complaint: abdominal pain Time Seen by Provider: 09/16/24 20:35 Source: patient and family Mode of arrival: ambulatory Limitations: no limitations History of Present Illness HPI narrative: 74-year-old male, ex-smoker with a history of hypertension, diabetes mellitus, dyslipidemia, COPD, ROMARIO, chronic diarrhea/microscopic colitis, fatty liver, umbilical hernia, presents to the ED with a 4 day history of -- diffuse abdominal pain. The pain is predominantly located over both flanks. No radiation of the pain. No exacerbating or relieving factors. The pain is intermittent -- chronic diarrhea. He has had 3 episodes of diarrhea today. No blood or mucus noted. -- 1 large episode of vomiting in the ED. -- Abdominal distension no fever or chills. No chest pain or shortness of breath. 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) Onset (ago): day(s) ( 4 days) Pain Consistency: intermittent Location: L flank and R flank Severity: moderate Quality: aching Radiation: none Migration to: no migration Exacerbating factors: nothing Relieving factors: nothing Associated symptoms: nausea, vomiting and diarrhea Related Data Home Medications ?Medication ?Instructions ?Recorded ?Confirmed ?Last Taken ?Type cholecalciferol (vitamin D3) 50 2,000 unit PO DAILY 06/25/19 06/02/24 Unknown History mcg (2,000 unit) capsule multivitamin 1 tablet PO DAILY 08/11/21 06/02/24 Unknown History omeprazole 40 mg capsule,delayed 40 mg PO DAILY 06/02/24 06/02/24 Unknown History release Allergies Allergy/AdvReac Type Severity Reaction Status Date / Time ibuprofen AdvReac Vomiting Verified 09/16/24 21:33 Review of Systems Review of Systems: All systems reviewed & are unremarkable except as noted in HPI and below Constitutional: Constitutional: Reports as per HPI and Reports no additional constitutional complaints Eyes: Eyes: Reports as per HPI and Reports no additional eye complaints ENT: Reports system reviewed and no additional complaints, except as documented and Reports as per HPI Cardiovascular: Cardiovascular: Reports as per HPI and Reports no additional cardiovascular complaints Respiratory: Respiratory: Reports as per HPI and Reports no additional respiratory complaints Gastrointestinal: Gastrointestinal: Reports as per HPI, Reports no additional gastrointestinal complaints, Reports bloating, Reports diarrhea, Reports nausea and Reports vomiting Genitourinary: Genitourinary: Reports no additional male genitourinary complaints and Reports as per HPI Musculoskeletal: Musculoskeletal: Reports no additional musculoskeletal complaints and Reports as per HPI Integumentary/Breasts: Skin/Breast: Reports system reviewed and no additional complaints, except as docu and Reports as per HPI Neurologic: Reports system reviewed and no additional complaints, except as documented and Reports as per HPI Psychiatric: Psychiatric: Reports no additional psychiatric complaints and Reports as per HPI Endocrine: Endocrine: Reports no additional endocrine complaints and Reports as per HPI Hematologic/Lymphatic: Hematologic/Lymphatic: Reports no additional hematologic/lymphatic complaints and Reports as per HPI Allergic/Immunologic: Allergic/Immunologic: Reports no additional allergic/immunologic complaints and Reports as per HPI [facility] Past Medical History Medical History (Updated 09/17/24 @ 00:30 by Malick Celis MD) Mixed hyperlipidemia Vitamin D deficiency Ventral hernia without obstruction or gangrene Umbilical hernia without obstruction and without gangrene Tobacco use Strain of unspecified muscle, fascia and tendon at wrist and hand level, right hand, initial encounter Prediabetes COPD (chronic obstructive pulmonary disease) Other male erectile dysfunction Obstructive sleep apnea (adult) (pediatric) Nicotine dependence, unspecified, uncomplicated Neck pain Lipoprotein deficiency Irregular bowel habits Impaired fasting glucose Essential (primary) hypertension Erectile dysfunction AC joint arthropathy Sleep disorder Microscopic colitis, unspecified Chronic diarrhea Elevated liver enzymes Type 2 diabetes mellitus without complications Right rotator cuff tear BPH (benign prostatic hyperplasia) OAB (overactive bladder) Cervical spondyloarthritis Mixed hyperlipidemia Borderline diabetes Surgical History Surgical History S/P rotator cuff repair Hx of excision of lamina of cervical vertebra for decompression of spinal cord Family History Family History Mother Hypertension Family history of elevated blood lipids Family history of malignant neoplasm of thyroid, Onset Age: 83 Patient's mother is Father Family history of liver disease, Onset Age: 79 Patient's father is Other Diabetes mellitus Family history of hypercholesterolemia Social History Social History Social History: Smoking packs per day: 1 Smoking cigarettes per day: 20.0 Years smoked: 30 Smoking pack-years: 30.00 Smoking status: Former smoker Tobacco type: cigarettes Second hand tobacco smoke exposure: No Smoking end date: 02/12/21 Alcohol intake: current Alcohol use details: Occasionally Substance use: current Substance use type: marijuana Last use: Pt smokes marijuana once or twice a month. 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 Gender identity (if verbalized by the patient): Male Sexual Orientation (if Verbalized by the Patient): Straight or Heterosexual Exam Narrative: vitals are stable. Temperature 36.1?. Const: General: ill appearing Orientation/consciousness: patient oriented x3 Limitations: no limitations HENMT: Head: normal to inspection Ears: external ears normal Face/Nose/Sinus: Normal external nose present Face and sinus: normal facial exam Mouth: Yes Normal oral and palatal mucosa present Throat: posterior oropharynx normal Eyes: Conjunctivae: conjunctivae normal Pupils: Equal, round and reactive pupils present EOM: EOMs intact bilaterally Direct Ophthalmoscopy: no photophobia Neck: Neck: normal visual inspection, no lymphadenopathy and no meningeal signs Chest: Chest palpation & inspection: normal inspection of the chest Resp: Effort & Inspection: normal respiratory effort Auscultation: clear to auscultation bilaterally Cardio: Rate: regular rate Rhythm: regular rhythm GI: GI Palp: Yes Soft to palpation Other: Tenderness predominantly over the left iliac fossa and right flank. No rigidity / rebound. Bowel sounds are brisk. : General: Yes no CVA tenderness Back/Spine/Pelvis: Back: no CVA tenderness Skin: General skin exam: normal color Rashes: no rashes Wounds: no wounds Neuro: General: patient oriented x3, moves all extremities, no meningeal signs, no focal motor deficits and CN's II-XI intact bilaterally Cranial nerves: Yes Nystagmus not present Speech: normal speech Gait exam (Neuro): Normal gait present Extrem: General: normal to inspection and no clubbing, cyanosis or edema Psych: Mental Status: mental status grossly normal Affect: normal affect Attitude: cooperative Course Course Emergency Course: Diffuse abdominal pain-- CT of the abdomen and pelvis revealed small bowel obstruction with pneumatosis of the intestinal loops. Patient is noted to have a high-grade obstruction possibly of the proximal ileum in the left lower quadrant of the abdomen. the patient's medical records state that he has had a small-bowel obstruction in 2019 but the patient denies having had a bowel obstruction in the past. Will place NG to suction. start IV Zosyn. Give IV fluids. Vital Signs Vital signs: Vital Signs Temperature 36.1 C L 09/16/24 20:27 Pulse Rate 96 09/16/24 20:27 Respiratory Rate 18 09/16/24 20:27 Blood Pressure 126/83 09/16/24 20:27 Pulse Oximetry 98 09/16/24 20:27 Oxygen Delivery Room Air 09/16/24 20:27 Temperature 36.1 C L 09/16/24 20:27 Pulse Rate 97 09/17/24 00:03 Respiratory Rate 18 09/17/24 00:03 Blood Pressure 135/79 09/17/24 00:03 Pulse Oximetry 94 09/17/24 00:03 Oxygen Delivery Room Air 09/17/24 00:03 MDM - Abdominal Pain MDM Narrative Medical decision making narrative: Small bowel obstruction with pneumatosis of the intestinal loops Differential Diagnosis Differential diagnosis: Likely diverticulitis and gastroenteritis Medical Records Attestation: I reviewed the patient's medical records. Lab Data Attestation: I reviewed the patient's lab results. 09/16/24 20:59 09/16/24 20:59 Labs: Lab Results 09/16/24 09/16/24 Range/Units 20:59 21:10 WBC 16.1 H (4.8-10.8) K/mm3 RBC 5.11 (4.70-6.10) M/mm3 Hgb 15.2 (12.4-15.3) g/dL Hct 47.3 H (37.0-46.0) % MCV 92.6 (78.0-102.0) fL MCH 29.7 (27.0-31.0) pg MCHC 32.1 (32-36) g/dL RDW 13.0 (11.6-14.4) % Plt Count 240 (150-420) K/mm3 MPV 10.2 (8.7-11.0) fl Immature Gran % (Auto) 0.4 H (0.0-0.0) % Neut % (Auto) 80.1 H (50.0-70.0) % Lymph % (Auto) 11.4 L (18.0-42.0) % Mchenry % (Auto) 5.9 (2.0-11.0) % Eos % (Auto) 1.8 (1.0-6.0) % Baso % (Auto) 0.4 (0.0-1.0) % Lymph # (Auto) 1.84 (1.10-4.50) K/mm3 Mchenry # (Auto) 0.95 H (0.10-0.90) K/mm3 Eos # (Auto) 0.29 (0.02-0.50) K/mm3 Baso # (Auto) 0.07 (0.00-0.10) K/mm3 Abs Immat Gran (auto) 0.07 H (0.00-0.00) K/mm3 Absolute Neuts (auto) 12.91 H (1.70-7.20) K/mm3 Absolute Nucleated RBC 0.00 (0.00-0.00) K/mm3 Nucleated RBC % 0.0 (0-0.0) % PT 11.1 (9.50-12.1) Seconds INR 1.0 APTT 26.4 (23.9-30.70) Sec Sodium 142 (136-145) mmol/L Potassium 4.0 (3.5-5.1) mmol/L Chloride 105 (98-108) mmol/L Carbon Dioxide 33 H (21-32) mmol/L Anion Gap 4 (4-12) mmol/L BUN 12 (7-18) mg/dL Creatinine 1.11 (0.70-1.30) mg/dL Estim Creat Clear Calc 57 ml/min Estimated GFR > 60 (59 - ) Glucose 167 H (70-99) mg/dL Calculated Osmolality 297 H (285-295) mOsm/kg Lactic Acid 1.9 (0.4-2.0) mmol/L Calcium 9.5 (8.5-10.1) mg/dL Total Bilirubin 0.7 (0.00-1.00) mg/dL Direct Bilirubin 0.2 (0-0.2) mg/dL AST 33 (15-37) U/L ALT 37 (16-63) U/L Alkaline Phosphatase 96 (46-116) U/L Troponin I 7.2 (0.00-60.4) ng/L Total Protein 8.2 (6.4-8.2) g/dL Albumin 4.0 (3.4-5.0) g/dL Lipase 21 (16-77) U/L Urine Color Yellow (Yellow) Urine Appearance Clear (Clear) Urine pH 6.0 (5.0-8.0) Ur Specific [place] 1.015 (1.010-1.020) Urine Protein Negative (Negative) Urine Glucose (UA) Negative (Negative) Urine Ketones Trace H (Negative) Ur Blood (Man) Negative (Negative) Urine Nitrate Negative (Negative) Urine Bilirubin Negative (Negative) Urine Urobilinogen 1.0 (0.2-1.0) mg/dL Leukocyte Esterase Rfl Negative (Negative) BHUPENDRA/UL Imaging Data Radiologist's impression: ITS Impressions Abdomen/Pelvis CT 09/16/24 22:51 IMPRESSION: High-grade small bowel obstruction. Pneumatosis within multiple loops of dilated small bowel, to the left of midline. With a possible source of obstruction in the left lower quadrant, at the level of patient's mechanism for his penile prosthetic. Nonobstructing fat and bowel containing left inguinal hernia. Additional findings suggesting prior granulomatous disease. Abdomen X-Ray 09/16/24 23:58 IMPRESSION: Nasogastric tube in good position and ready for immediate use. Discharge Plan Discharge Clinical Impression: Small bowel obstruction Patient Disposition: Still a Patient Condition: Stable Additional Instructions: transfer patient to [facility]. Patient has been accepted by Dr. Bj Rogers Patient Language: Khmer Prescriptions: No Action multivitamin Tablet 1 tablet PO DAILY omeprazole 40 mg capsule,delayed release(DR/EC) 40 mg PO DAILY triamcinolone acetonide 0.1 % cream 1 applic topical BID Qty: 30 0RF cholecalciferol (vitamin D3) 50 mcg (2,000 unit) capsule 2,000 unit PO DAILY finasteride 5 mg tablet 5 mg PO DAILY Qty: 30 2RF tamsulosin 0.4 mg capsule See Rx Instructions .ROUTE .COMPLEX Qty: 90 1RF Dose Instruction: TAKE ONE CAPSULE BY MOUTH DAILY 30 MINUTES AFTER SAME MEAL Rx Instructions: TAKE ONE CAPSULE BY MOUTH DAILY 30 MINUTES AFTER SAME MEAL Follow-up/Referrals: UNKNOWN,DOCTOR [Primary Care Provider] - Time of Disposition: 00:30
[2024-09-16 21:05] LABS: Basophils Absolute Auto 0.07 K/mm3 (0.00-0.10); Basophils Percent Auto 0.4 % (0.0-1.0); Eosinophils Absolute Auto 0.29 K/mm3 (0.02-0.50); Eosinophils Percent Auto 1.8 % (1.0-6.0); Hematocrit 47.3 % (37.0-46.0); Hemoglobin 15.2 g/dL (12.4-15.3); Immature Granulocyte Absolute 0.07 K/mm3 (0.00-0.00); Immature Granulocyte Percent A 0.4 % (0.0-0.0); Lymphocytes Absolute Auto 1.84 K/mm3 (1.10-4.50); Lymphocytes Percent Auto 11.4 % (18.0-42.0); Mean Corpuscular HGB Conc 32.1 g/dL (32-36); Mean Corpuscular Hemoglobin 29.7 pg (27.0-31.0); Mean Corpuscular Volume 92.6 fL (78.0-102.0); Mean Platelet Volume 10.2 fl (8.7-11.0); Monocytes Absolute Auto 0.95 K/mm3 (0.10-0.90); Monocytes Percent Auto 5.9 % (2.0-11.0); Neutrophils Absolute Auto 12.91 K/mm3 (1.70-7.20); Neutrophils Percent Auto 80.1 % (50.0-70.0); Platelet Count Result 240 K/mm3 (150-420); Red Blood Count 5.11 M/mm3 (4.70-6.10); White Blood Count 16.1 K/mm3 (4.8-10.8)
[2024-09-16] MEDS: LACTATED RINGERS 1,000 ML 999 ML IV CONT ×2 (21:09→23:59)
[2024-09-16] MEDS: HYDROmorphone HCL INJ (*CRX) 2 MG/ML VIAL 0.5 MG IV PUSH ×2 (21:11→23:59)
[2024-09-16] MEDS: PROCHLORPERAZINE EDISYLATE 10 MG/2 ML VIAL IV PUSH (21:11)
[2024-09-16 21:19] LABS: Add Urine Microscopic? NO; Appearance Urine Clear (Clear); Bilirubin Urine Negative (Negative); Blood Urine Negative (Negative); Color Urine Yellow (Yellow); Glucose Urine UA Negative (Negative); Ketones Urine Trace (Negative); Leukocyte Esterase Ur Negative LEU/UL (Negative); Nitrate Urine Negative (Negative); Protein Urine Negative (Negative); Specific Grav Ur 1.015 (1.010-1.020)
[2024-09-16 21:24] LABS: Partial Thromboplastin Time 26.4 Sec (23.9-30.70); Prothrombin Time 11.1 Seconds (9.50-12.1)
[2024-09-16 21:29] LABS: Alanine Aminotransferase 37 U/L (16-63); Alkaline Phosphatase 96 U/L (46-116); Anion Gap 4 mmol/L (4-12); Aspartate Amino Transferase 33 U/L (15-37); Bilirubin Direct 0.2 mg/dL (0-0.2); Bilirubin,Total 0.7 mg/dL (0.00-1.00); Blood Urea Nitrogen 12 mg/dL (7-18); Calcium 9.5 mg/dL (8.5-10.1); Carbon Dioxide 33 mmol/L (21-32); Chloride 105 mmol/L (98-108); Estimated CRCL calculation 57 ml/min; Estimated Glomerular Filt Rate > 60; Glucose 167 mg/dL (70-99); Lipase 21 U/L (16-77); Osmolality Calculated 297 mOsm/kg (285-295); Sodium 142 mmol/L (136-145); Total Protein 8.2 g/dL (6.4-8.2); Troponin I 7.2 ng/L (0.00-60.4)
[2024-09-16 21:36] LABS: Lactic Acid Reflex 1.9 mmol/L (0.4-2.0)
[2024-09-17] VITALS (9 sets, daily range): BP systolic 135–139; BP diastolic 79–90; PULSE 97; RESP 18; O2SAT 90–94
[2024-09-17] MEDS: PIPERACILLN/TAZ 3.375GM/NS50ML 3.375 GM/50 ML BAG IVPB
--- NOTE | 2024-09-17 00:27 | PC.NURSE ---
This RN spoke with patient about giving information to granddaughter- gaye-patient said ok for her to receive information. Wishes to be called once we have an accepting facility. [phone]. She is having surgery tomorrow so ok to leave a message for her.
[2024-09-17] MEDS: LACTATED RINGERS 1,000 ML 150 ML IV CONT (01:27)
== END 2024-09-17 02:18 | disposition short-term general hospital (02) ==
PROVIDERS: Emergency Provider Internal Medicine Critical Care Medicine
DX: K56.609 Unspecified intestinal obstruction, unspecified as to partial versus complete obstruction (principal); E11.9 Type 2 diabetes mellitus without complications; I10 Essential (primary) hypertension; J44.9 Chronic obstructive pulmonary disease, unspecified; E78.2 Mixed hyperlipidemia; Z87.891 Personal history of nicotine dependence
CPT/HCPCS: 36415; 74177; 80048; 80076; 81003; 83605; 83690; 84484; 85025; 85610; 85730; 96361; 96365; 96375; 96376; 99285; J0780; J1171; J2543; J7120; Q9967

== ENCOUNTER 2024-09-17 02:57 | Inpatient (IN) | payer MEDICARE, BC, SELFPAY ==
--- NOTE | ~2024-09-17 | XR_ITS ---
Upright portable view of the abdomen Clinical history: NG tube placement Findings: NG tube in satisfactory position. Air distended loops of large and small bowel are present. No free air evident. No abnormal mass lesion or calcification is seen. Osseous structures are intact . Impression: NG tube in satisfactory position. Reviewed, dictated and finalized at [facility]. INE HEEL SE[employer] LASTER Impression: NG tube in satisfactory position.
--- NOTE | ~2024-09-17 | XR_ITS ---
EXAMINATION: XR sm bowel follow through [facility] DATE: 09/17/2024 10:37 INDICATION: Small bowel obstruction TECHNIQUE: Biometrics Analyst radiograph(s) of the abdomen was/were obtained. Water-soluble oral contrast was admi nistered, and sequential radiographs of the abdomen were obtained until oral contrast was noted to be in the proximal colon. COMPARISON: CT dated 09/16/2024 FINDINGS: Transit time from the stomach to proximal colon was approximately 45 minutes. There is normal caliber and mucosal fold pattern throughout the small bowel. IMPRESSION: 1. Normal small bowel follow-through with resolution of prior small bowel obstruction versus ileus. Reviewed, dictated and finalized at location L. ORT CLERK IMPRESSION: 1. Normal small bowel follow-through with resolution of prior small bowel obstr uction versus ileus.
--- NOTE | 2024-09-17 02:49 | ADMGEN ---
This patient, Scott Viveros, was admitted to Medical Room 347-. Patient/family oriented to hospital policies and general routines including ID bracelet, bed and alarms, visiting hours, pain management, procedures, bathroom and other care routines, personal items, smoking policy, room service/diet, and visiting hours. Information on how to activate the Rapid Response Team has been discussed. Patient/Family are encouraged to report perceived risks to care and to ask questions if they do not understand what they are told or what they should do.
[2024-09-17 02:50] VITALS: BMI 27.1
--- NOTE | 2024-09-17 02:50 | PM.IMHP ---
H&P: HPI History of Present Illness Date/Time: 09/17/24 02:50 Chief Complaint: Abdominal pain. Narrative: This is a 74-year-old male with history of chronic diarrhea, microscopic colitis, fatty liver, hernia, hypertension, dyslipidemia, prediabetes, chronic obstructive pulmonary disease, and obstructive sleep apnea who presented to the emergency department at the outside facility with complaints of abdominal pain. The patient gives a 4 day history of intermittent, diffuse, and nonradiating aching abdominal pain. He has not noticed any exacerbating or alleviating factors. Today his abdomen felt bloated and distended and he reports having 1 large episode of non bloody emesis prior to arrival to the ED. he has also had 3 loose stools today which is not unusual for him. At the time my evaluation he feels better with NG tube decompression. He denies fever, chills, sweats, chest pain, shortness of breath, hematemesis, melena, hematochezia, and dysuria. In the ED: Vital signs on arrival include a temperature of 36.1? C, pulse 96, respiratory 18, blood pressure 126/83, pulse 98% on room air. Labs were significant for WBC count of 16.1, hemoglobin 15.2, hematocrit 47.3%, creatinine 1.11, glucose 167, lactic acid 1.9. CT of the abdomen pelvis showed high-grade small-bowel obstruction and pneumatosis within multiple loops of dilated small bowel with a possible source of obstruction the left lower quadrant at the level of the patient's mechanism for his penile prostatic and nonobstructing fat and bowel containing left inguinal hernia. NG tube was inserted which yielded 1.5 L within a short period of time with improvement in his distension and pain. General surgeon, Dr. Myles, accepted the patient in consult and plans for surgery sometime today. Review of Systems Review of Systems: 12 systems were reviewed and are negative except for as per HPI. [facility] Past Medical History Medical History (Updated 09/17/24 @ 03:18 by Latrice Hyde PA-C) Prediabetes Chronic obstructive pulmonary disease Obstructive sleep apnea Benign prostatic hyperplasia Overactive bladder Mixed hyperlipidemia Vitamin D deficiency Ventral hernia without obstruction or gangrene Umbilical hernia without obstruction and without gangrene Tobacco use Nicotine dependence, unspecified, uncomplicated Lipoprotein deficiency Essential (primary) hypertension Erectile dysfunction Microscopic colitis, unspecified Chronic diarrhea Cervical spondyloarthritis Mixed hyperlipidemia Surgical History Surgical History (Updated 09/17/24 @ 02:53 by Latrice Hyde PA-C) History of penile implant History of cervical spinal surgery History of repair of rotator cuff Family History Family History Mother Hypertension Family history of elevated blood lipids Family history of malignant neoplasm of thyroid, Onset Age: 83 Patient's mother is Father Family history of liver disease, Onset Age: 79 Patient's father is Other Diabetes mellitus Family history of hypercholesterolemia Social History Social History (Updated 09/17/24 @ 04:22 by Latrice Hyde PA-C) Social History: Surrogate medical decision maker: Anthony Viveros, son. Code status: Full code. Smoking packs per day: 1 Smoking cigarettes per day: 20.0 Years smoked: 30 Smoking pack-years: 30.00 Smoking status: Former smoker Tobacco type: cigarettes Second hand tobacco smoke exposure: No Smoking end date: 02/12/21 Alcohol intake: current Drinks per week: 7 Alcohol use details: Occasionally Substance use: current Substance use type: marijuana Do You Feel Safe in your Home?: Yes Lack of Transportation: No Lack of Food: Never True Current Housing: I Have Housing Concerned About Future Housing: No Difficulty Paying Gas/Electric Bills: No Difficulty Paying for Meds: No Currently Unemployed: No Education: Trade/Vocational Certificate Difficulty w/ Childcare or Family Care: No Spiritual care concerns: No Meds Home Medications and Allergies Home Medications ?Medication ?Instructions ?Recorded ?Confirmed ?Type cholecalciferol (vitamin D3) 50 2,000 unit PO DAILY 06/25/19 09/17/24 History mcg (2,000 unit) capsule multivitamin 1 tablet PO DAILY 08/11/21 09/17/24 History finasteride 5 mg tablet 5 mg PO DAILY #30 tabs 03/05/22 09/17/24 Rx tamsulosin 0.4 mg capsule See Rx Instructions .Route 03/15/23 09/17/24 Rx .COMPLEX #90 caps omeprazole 40 mg capsule,delayed 40 mg PO DAILY 06/02/24 09/17/24 History release Allergies Allergy/AdvReac Type Severity Reaction Status Date / Time ibuprofen AdvReac Vomiting Verified 09/16/24 21:33 Exam Narrative: General: Mildly ill-appearing gentleman the semi-Meza position in bed in no acute distress. Weight: 91 kg. BMI: 27.2 HEENT: Normocephalic, atraumatic. PERRL, EOMI. Sclera anicteric. NG tube in the right naris. Tacky mucous membranes. Neck: Supple. Respiratory: Lungs are clear to auscultation bilaterally. Cardiovascular: Regular rate and rhythm with S1-S2. Gastrointestinal: Abdomen is soft and slightly distended with high-pitched bowel sounds. He is tender to palpation throughout the lower abdomen, more so on the left. No guarding or rebound tenderness. Skin: Warm and dry. No rash or lesions on limited exam. Extremities: No cyanosis, clubbing, or edema. Radial and pedal pulses intact. Neurological: Alert. Cranial nerves 2-12 are grossly intact. No gross focal deficits to casual conversation. Psychiatric: Pleasant and cooperative with normal mood and affect. Judgment and insight intact. H&P: Results Labs Labs: Lab Results 09/16/24 09/16/24 Range/Units 20:59 21:10 WBC 16.1 H (4.8-10.8) K/mm3 RBC 5.11 (4.70-6.10) M/mm3 Hgb 15.2 (12.4-15.3) g/dL Hct 47.3 H (37.0-46.0) % MCV 92.6 (78.0-102.0) fL MCH 29.7 (27.0-31.0) pg MCHC 32.1 (32-36) g/dL RDW 13.0 (11.6-14.4) % Plt Count 240 (150-420) K/mm3 MPV 10.2 (8.7-11.0) fl Immature Gran % (Auto) 0.4 H (0.0-0.0) % Neut % (Auto) 80.1 H (50.0-70.0) % Lymph % (Auto) 11.4 L (18.0-42.0) % [place] % (Auto) 5.9 (2.0-11.0) % Eos % (Auto) 1.8 (1.0-6.0) % Baso % (Auto) 0.4 (0.0-1.0) % Lymph # (Auto) 1.84 (1.10-4.50) K/mm3 [place] # (Auto) 0.95 H (0.10-0.90) K/mm3 Eos # (Auto) 0.29 (0.02-0.50) K/mm3 Baso # (Auto) 0.07 (0.00-0.10) K/mm3 Abs Immat Gran (auto) 0.07 H (0.00-0.00) K/mm3 Absolute Neuts (auto) 12.91 H (1.70-7.20) K/mm3 Absolute Nucleated RBC 0.00 (0.00-0.00) K/mm3 Nucleated RBC % 0.0 (0-0.0) % PT 11.1 (9.50-12.1) Seconds INR 1.0 APTT 26.4 (23.9-30.70) Sec Sodium 142 (136-145) mmol/L Potassium 4.0 (3.5-5.1) mmol/L Chloride 105 (98-108) mmol/L Carbon Dioxide 33 H (21-32) mmol/L Anion Gap 4 (4-12) mmol/L BUN 12 (7-18) mg/dL Creatinine 1.11 (0.70-1.30) mg/dL Estim Creat Clear Calc 57 ml/min Estimated GFR > 60 (59 - ) Glucose 167 H (70-99) mg/dL Calculated Osmolality 297 H (285-295) mOsm/kg Lactic Acid 1.9 (0.4-2.0) mmol/L Calcium 9.5 (8.5-10.1) mg/dL Total Bilirubin 0.7 (0.00-1.00) mg/dL Direct Bilirubin 0.2 (0-0.2) mg/dL AST 33 (15-37) U/L ALT 37 (16-63) U/L Alkaline Phosphatase 96 (46-116) U/L Troponin I 7.2 (0.00-60.4) ng/L Total Protein 8.2 (6.4-8.2) g/dL Albumin 4.0 (3.4-5.0) g/dL Lipase 21 (16-77) U/L Urine Color Yellow (Yellow) Urine Appearance Clear (Clear) Urine pH 6.0 (5.0-8.0) Ur Specific [place] 1.015 (1.010-1.020) Urine Protein Negative (Negative) Urine Glucose (UA) Negative (Negative) Urine Ketones Trace H (Negative) Ur Blood (Man) Negative (Negative) Urine Nitrate Negative (Negative) Urine Bilirubin Negative (Negative) Urine Urobilinogen 1.0 (0.2-1.0) mg/dL Leukocyte Esterase Rfl Negative (Negative) BHUPENDRA/UL Imaging CT scan - abdomen: Radiologist's impression: 1. High-grade small bowel obstruction. 2. Pneumatosis within multiple loops of dilated small bowel, to the left of midline. 3. With a possible source of obstruction in the left lower quadrant, at the level of patient's mechanism for his penile prosthetic. 4. Nonobstructing fat and bowel containing left inguinal hernia. 5. Additional findings suggesting prior granulomatous disease. Assessment and Plan Assessment and plan (1) Small bowel obstruction: Code(s): K56.609 - Unspecified intestinal obstruction, unspecified as to partial versus complete obstruction Status: Acute (2) Prediabetes: Code(s): R73.03 - Prediabetes Status: Acute (3) Benign prostatic hyperplasia: Code(s): N40.0 - Benign prostatic hyperplasia without lower urinary tract symptoms Status: Acute (4) Chronic obstructive pulmonary disease: Code(s): J44.9 - Chronic obstructive pulmonary disease, unspecified Status: Acute (5) Obstructive sleep apnea: Code(s): G47.33 - Obstructive sleep apnea (adult) (pediatric) Status: Acute Plan The patient presented to the outside facility with complaints of intermittent abdominal pain for 4 days as detailed in HPI. Labs, imaging, EKG, and all reports were personally reviewed. CT scan shows high-grade small-bowel obstruction with pneumatosis and he will be NPO as Dr. Myles intends on taking him to surgery today. He is hemodynamically stable and lactic acid level was within normal limits. Analgesics and antiemetics are available as needed. CPAP will be provided for the patient to use while hospitalized. No acute issues with regards to COPD. He does not check his glucose at home. His home medications will be reviewed and resumed as appropriate. Findings and treatment plan were discussed with the patient. Questions were solicited and answered to satisfaction. The patient's medical management will be taken over by the hospitalist team in a.m. Quality VTE Prophylaxis VTE prophylaxis: mechanical ordered If No VTE Prophylaxis Answer both mechanical and pharmacologic: Reason no pharmacologic proph: medical contraindication (to OR later today) Hospitalist MIPS Advance Care Plan I have confirmed that the patient's Advanced Care Plan is present, code status is documented, or surrogate decision maker is listed in patient medical record.: Yes Medication Reconciliation I have utilized all available resources to obtain, update and review the patients current medications (includes all prescriptions, OTC, herbals, cannabis, and nutritional supplements).: Yes
--- OUTSIDE RECORDS SUMMARY | 2024-09-17 02:50 | XMS_ITS | Clinical Summary ---
Author Organization [facility] Address [address] [place] [address] Care Team Providers Care Client Delivery Specialist Name Role Phone Terrie Oneill MD Primary Care Provider + Source Comments [facility],non-owned Affiliates and Associated Physician Practices is amultiple site organization consisting of ambulatory clinics and hospital sitesin [place], [place], [place] and [place]. This disclosure is being madepursuant to the Care Everywhere program and may not contain all information available regarding this patient. Last updated 18.[facility] Allergies Active Allergy Reactions Criticality Noted Date [...] Comments Blood Pressure 138/81 06/16/2024 10:12 AM POWER SEWING MACHINE OPERATOR Pulse 65 06/16/2024 10:12 AM POWER SEWING MACHINE OPERATOR Temperature 36.3 C (97.3 F) 06/16/2024 10:12 AM POWER SEWING MACHINE OPERATOR Respiratory Rate 18 06/16/2024 10:12 AM POWER SEWING MACHINE OPERATOR Oxygen Saturation 99% 06/16/2024 10:12 AM POWER SEWING MACHINE OPERATOR Inhaled Oxygen Concentration - - Weight 93.4 kg (206 lb) 06/16/2024 10:12 AM POWER SEWING MACHINE OPERATOR Height 182.9 cm (6') 06/16/2024 10:12 AM POWER SEWING MACHINE OPERATOR Body Mass Index 27.94 06/16/2024 10:12 AM POWER SEWING MACHINE OPERATOR Plan of Treatment Upcoming Encounters Date Type Department Care Team (Late st Contact Info) Description 12/15/2024 11:30 AM CDT Office Visit [facility] - Urology [address] [place] [address], [place] [address] Autumn Hunter, TOXICOLOGY SUPERVISOR-BROADCAST OPERATIONS MANAGER [address] [place] [address] [place] [address] Health Maintenance Due Date Last Done Comments [...] this topic Medical Devices Implanted Type Area Manager Of Quality Device Identifier Shelf Expiration Date Model / Serial / Lot Pros Penl Ams 700 Ms Audiometrist Ams Conceal Implanted:Qty: 1 on 04/14/2020 by Derek Ovalle MD at [facility] N/A: Penis [place] [employer] 03/15/2022 [id number] / / [id number] Description:apart of total Kit Acc Ams 700 Penl Pros Implanted:Qty: 1 on 04/14/2020 by Derek Ovalle MD at [facility] N/A: Penis [place] [employer] 09/01/2024 [id number] / / [id number] Description:apart of total Ams 700 Cx Ms Pump Iz Implanted:Qty: 1 on 04/14/2020 by Derek Ovalle MD at [facility] N/A: Penis 10/16/2020 [id number] / / [id number] Pros Penl Ams 700 Ms Audiometrist Ams Conceal Implanted:Qty: 1 on 12/15/2020 by Derek Ovalle MD at [facility] Left: Groin [employer] [employer] 11/08/2022 [id number] / / [id number] Kit Acc Ams 700 Penl Pros Implanted:Qty: 1 on 12/15/2020 by Derek Ovalle MD at [facility] Left: Groin [place] [employer] [id number] / / Description:apart of total Advance Directives * Full Code (Latest Code Status on File) Date Activated Date Inactivated Comments 12/15/2020 10:15 AM 12/16/2020 10:57 AM * Full Code Date Activated Date Inactivated Comments 04/14/2020 6:31 PM 04/15/2020 2:24 PM Care Teams Client Delivery Specialist Relationship Specialty Start Date End Date Terrie Oneill MD [address] [facility] [address] [place], [place] [id number] PCP - General 08/20/19
--- OUTSIDE RECORDS SUMMARY | 2024-09-17 02:51 | XMS_ITS | Referral Summary ---
Author Organization [facility] Address [address] [address] Care Team Providers Care Masonry Supervisor Name Role Phone Terrie Oneill MD Primary Care Provider + Source Comments [facility],non-owned Affiliates and Associated Physician Practices is amultiple site organization consisting of ambulatory clinics and hospital sitesin [place], [place], [place] and [place]. This disclosure is being madepursuant to the Care Everywhere program and may not contain all information available regarding this patient. Last updated 18.[facility] Allergies Active Allergy Reactions Criticality Noted Date [...] Comments Blood Pressure 138/81 06/16/2024 10:12 AM USABILITY SPECIALIST Pulse 65 06/16/2024 10:12 AM USABILITY SPECIALIST Temperature 36.3 C (97.3 F) 06/16/2024 10:12 AM USABILITY SPECIALIST Respiratory Rate 18 06/16/2024 10:12 AM USABILITY SPECIALIST Oxygen Saturation 99% 06/16/2024 10:12 AM USABILITY SPECIALIST Inhaled Oxygen Concentration - - Weight 93.4 kg (206 lb) 06/16/2024 10:12 AM USABILITY SPECIALIST Height 182.9 cm (6') 06/16/2024 10:12 AM USABILITY SPECIALIST Body Mass Index 27.94 06/16/2024 10:12 AM USABILITY SPECIALIST Plan of Treatment Upcoming Encounters Date Type Department Care Team (Late st Contact Info) Description 12/15/2024 11:30 AM CDT Office Visit [facility] - Urology [address] [place] [address], [place] [address] Autumn Hunter, BRIM BUSTER-CHOPPER GUN OPERATOR [address] [place] [address] [place] [address] Medical Devices Implanted Type Area Housesmith Device Identifier Shelf Expiration Date Model / Serial / Lot Pros Penl Ams 700 Ms Crutching Contractor Ams Conceal Implanted:Qty: 1 on 04/14/2020 by Derek Ovalle MD at [facility] N/A: Penis [employer] Scimed 03/15/2022 [id number] / / [id number] Description:apart of total Kit Acc Ams 700 Penl Pros Implanted:Qty: 1 on 04/14/2020 by Derek Ovalle MD at [facility] N/A: Penis [employer] Scimed 09/01/2024 [id number] / / [id number] Description:apart of total Ams 700 Cx Ms Pump Iz Implanted:Qty: 1 on 04/14/2020 by Derek Ovalle MD at [facility] N/A: Penis 10/16/2020 [id number] / / [id number] Pros Penl Ams 700 Ms Crutching Contractor Ams Conceal Implanted:Qty: 1 on 12/15/2020 by Derek Ovalle MD at [facility] Left: Groin [employer] Sc[employer]ed 11/08/2022 [id number] / / [id number] Kit Acc Ams 700 Penl Pros Implanted:Qty: 1 on 12/15/2020 by Derek Ovalle MD at [facility] Left: Groin [employer] Scimed [id number] / / Description:apart of total Advance Directives * Full Code (Latest Code Status on File) Date Activated Date Inactivated Comments 12/15/2020 10:15 AM 12/16/2020 10:57 AM * Full Code Date Activated Date Inactivated Comments 04/14/2020 6:31 PM 04/15/2020 2:24 PM Care Teams Masonry Supervisor Relationship Specialty Start Date End Date Terrie Oneill MD [address] [place], [place] [id number] PCP - General 08/20/19
--- OUTSIDE RECORDS SUMMARY | 2024-09-17 02:51 | XMS_ITS | Clinical Summary ---
Author Organization [facility] [address] [place] [id number] Care Team Providers Care Library Clerk Talking Books Name Role Phone No, Physician Primary Care Provider [phone] Allergies No known active allergies Medications metFORMIN [...] cervical decompressive surgery and fusion by our accreditation specialist this fall after his class reunion. [...] Department Care Team Description 08/13/2024 8:17 AM DIGITAL ANALYST - 08/13/2024 11:59 PM DIGITAL ANALYST [facility] [address] [place] [address] Abnormal weight loss Discharge Disposition: Discharge to [...] on file Legal Sex Male 7:26 PM DIGITAL ANALYST Gender Identity Male 09/24/2019 9:10 PM CDT Sexual Orientation Straight 09/24/2019 9: 08 PM CDT Obstetrics History Last Filed Vital Signs Vital Sign Reading Time Taken Comments Blood Pressure 122/84 10/23/2018 8:51 AM CDT Pulse 69 07/29/2018 7:59 AM DIGITAL ANALYST Temperature 36.6 C (97.9 F) 07/29/2018 7:59 AM DIGITAL ANALYST Respiratory Rate 20 07/29/2018 7:59 AM DIGITAL ANALYST Oxygen Saturation 92% 07/29/2018 8:27 AM DIGITAL ANALYST Inhaled Oxygen Concentration - - Weight 92.5 kg (204 lb) 08/20/2019 9:22 AM DIGITAL ANALYST Height 183.1 cm (6' 0.1 ) 08/20/2019 9:22 AM DIGITAL ANALYST Body Mass Index 27.59 08/20/2019 9:22 AM DIGITAL ANALYST Plan of Treatment Health Maintenance Due Date Last Done Comments Albumin Creatinine Ratio, Urine 1950 Colon Cancer Screening-Colonoscopy 1950 Depression Screening 1950 Fall Risk Assessment 1950 Hemoglobin A1C 1950 04/06/2020 Hepatitis C Screening 1950 Dilated Eye Exam [...] Completed 08/13/2024 Medical Devices Implanted Type Area Parking Assistant Device Identifier Shelf Expiration Date Model / Serial / Lot Veena Spine [id number] Nba-C 8-10mm 5.6mm Level 2 Lock Spine Long Plate Bone - [id number] Implanted:Qty: 1 on 07/28/2018 by Jose Fox MD at [facility] N/A: Cervical-L umbar Spine Veena Spine 09/12/2022 [id number] / / [id number] [employer] [id number] Nba-C Vertebridge 17x6.2-9mm 7d Lordotic 14mm Taper Cage .8cc - [id number] Implanted:Qty: 1 on 07/28/2018 by Jose Fox MD at [facility] N/A: Cervical-L umbar Spine [employer] 03/15/2021 [id number] / / [id number] [employer] [id number] Nba-C Vertebridge 17x4.2-7mm 7d Lordotic 14mm Taper Cage .61cc - [id number] Implanted:Qty: 1 on 07/28/2018 by Jose Fox MD at [facility] N/A: Cervical-L umbar Spine [employer] 05/15/2022 [id number] / / [id number] Veena Spine [id number] Nba-C 5-7mm Level 2 Lock Spine Standard Plate Bone - [id number] Implanted:Qty: 1 on 07/28/2018 by Jose Fox MD at [facility] N/A: Cervical-L umbar Spine Veena Spine 08/15/2022 [id number] / / [id number] Explanted Type Area Parking Assistant Device Identifier Shelf Expiration Date Model / Serial / Lot Pin Distraction [place] L12 Mm Self Drill Sterile Cervical Distractor System - [id number] Explanted:Qty: 2 on 07/28/2018 at [facility] N/A: Cervical-L umbar Spine [employer] [id number] / / Procedures Procedure Name Priority Date/Time Associated Diagnosis Comments CT ABDOMEN PELVIS W CONTRAST Schedule Routine, Read Routine (OP Routine) 08/13/2024 8:58 AM DIGITAL ANALYST Abnormal weight loss EGFR Routine 07/29/2018 6:53 AM DIGITAL ANALYST from Last 3 Months or Most Recently Relevant to Health Maintenance Results * CT Abdomen Pelvis W Contrast (08/13/2024 8:58 AM DIGITAL ANALYST) Anatomical Region Laterality Modality Body N/A Computed Tomogra phy 08/14/2024 2:44 PM DIGITAL ANALYST Narrative 08/14/2024 2:50 PM DIGITAL ANALYST EXAM DESCRIPTION: CT ABDOMEN PELVIS W CONTRAST [...] Zia Boyce M.D. KT T: Report ID: [id number] Reading Location: [place] [address] Procedure Note Zia Boyce MD - 08/14/2024 [...] Zia Boyce M.D. KT T: Report ID: [id number] Reading Location: [place] [address] us Indira Castano MD IM CT PROCEDURES Final R esult * eGFR (07/29/2018 6:53 AM DIGITAL ANALYST) eGFR 96 mL/min/1.7 3 m2 [facility]CER Comment: Interpretive Data Reference Interval Normal >/= 90 mL/min/1.73m2 Mildly decreased* 60 - 89 mL/min/1.73m2 Mildly to moderately decreased 45 - 59 mL/min/1.73m2 Moderately to severely decreased 30 - 44 mL/min/1.73m2 Severely decreased 15 - 29 mL/min/1.73m2 Kidney Failure < 15 mL/min/1.73m2 *Relative to young adult level If -Niuean multiply value by 1.16. Estimated glomerular filtration [...] 2016. Blood specimen (specimen) 07/29/2018 6:53 AM DIGITAL ANALYST 07/29/2018 7:36 AM DIGITAL ANALYST Narrative EVAN MERCER - 07/29/2018 8:01 AM DIGITAL ANALYST Heike LUCERO LAB BLOOD ORDERABLES Final R esult [facility] MERCER [id number] Department [place] [address] from Last 3 Months or Most Recently Relevant to Health Maintenance Insurance MEDICARE MEDICARE BLUE TRADITIONAL OOS Advance Directives For more information, please contact: [phone] * Full Code (Latest Code Status on File) Date Activated Date Inactivated Comments 07/28/2018 2:06 PM 07/29/2018 2:58 PM Care Teams Library Clerk Talking Books Relationship Specialty Start Date End Date No, Physician PCP - General 08/06/24
--- OUTSIDE RECORDS SUMMARY | 2024-09-17 02:51 | XMS_ITS | Referral Summary ---
Author Organization [facility] Address [address] [place] [address] Care Team Providers Care Worm Raiser Name Role Phone No, Physician Primary Care Provider [phone] Encounters Date Type Department Care Team Description 08/13/2024 8:17 AM RETAIL EVENT AND SALES ASSISTANT - 08/13/2024 11:59 PM RETAIL EVENT AND SALES ASSISTANT [facility] [address] [place] [address] Abnormal weight loss Discharge Disposition: Discharge to [...] cervical decompressive surgery and fusion by our cardiology specialist this fall after his class reunion. [...] on file Legal Sex Male 7:26 PM RETAIL EVENT AND SALES ASSISTANT Gender Identity Male 09/24/2019 9:10 PM CDT Sexual Orientation Straight 09/24/2019 9: 08 PM CDT Last Filed Vital Signs Vital Sign Reading Time Taken Comments Blood Pressure 122/84 10/23/2018 8:51 AM CDT Pulse 69 07/29/2018 7:59 AM RETAIL EVENT AND SALES ASSISTANT Temperature 36.6 C (97.9 F) 07/29/2018 7:59 AM RETAIL EVENT AND SALES ASSISTANT Respiratory Rate 20 07/29/2018 7:59 AM RETAIL EVENT AND SALES ASSISTANT Oxygen Saturation 92% 07/29/2018 8:27 AM RETAIL EVENT AND SALES ASSISTANT Inhaled Oxygen Concentration - - Weight 92.5 kg (204 lb) 08/20/2019 9:22 AM RETAIL EVENT AND SALES ASSISTANT Height 183.1 cm (6' 0.1 ) 08/20/2019 9:22 AM RETAIL EVENT AND SALES ASSISTANT Body Mass Index 27.59 08/20/2019 9:22 AM RETAIL EVENT AND SALES ASSISTANT Plan of Treatment Not on file Medical Devices Implanted Type Area English Division Chair Device Identifier Shelf Expiration Date Model / Serial / Lot Veena Spine [id number] Nba-C 8-10mm 5.6mm Level 2 Lock Spine Long Plate Bone - [id number] Implanted:Qty: 1 on 07/28/2018 by Jose Fox MD at [facility] N/A: Cervical-L umbar Spine Veena Spine 09/12/2022 [id number] / / [id number] [employer] [id number] Nba-C Vertebridge 17x6.2-9mm 7d Lordotic 14mm Taper Cage .8cc - [id number] Implanted:Qty: 1 on 07/28/2018 by Jose Fox MD at [facility] N/A: Cervical-L umbar Spine [employer] 03/15/2021 [id number] / / [id number] Veena [employer] Inc [id number] Nba-C Vertebridge 17x4.2-7mm 7d Lordotic 14mm Taper Cage .61cc - [id number] Implanted:Qty: 1 on 07/28/2018 by Jose Fox MD at [facility] N/A: Cervical-L umbar Spine [employer] 05/15/2022 [id number] / / [id number] Veena Spine [id number] Nba-C 5-7mm Level 2 Lock Spine Standard Plate Bone - [id number] Implanted:Qty: 1 on 07/28/2018 by Jose Fox MD at [facility] N/A: Cervical-L umbar Spine Veena Spine 08/15/2022 [id number] / / [id number] Explanted Type Area English Division Chair Device Identifier Shelf Expiration Date Model / Serial / Lot Pin Distraction [place] L12 Mm Self Drill Sterile Cervical Distractor System - [id number] Explanted:Qty: 2 on 07/28/2018 at [facility] N/A: Cervical-L umbar Spine [employer]es[employer] [id number] / / Procedures Procedure Name Priority Date/Time Associated Diagnosis Comments CT ABDOMEN PELVIS W CONTRAST Schedule Routine, Read Routine (OP Routine) 08/13/2024 8:58 AM RETAIL EVENT AND SALES ASSISTANT Abnormal weight loss EGFR Routine 07/29/2018 6:53 AM RETAIL EVENT AND SALES ASSISTANT from Last 3 Months or Most Recently Relevant to Health Maintenance Results * CT Abdomen Pelvis W Contrast (08/13/2024 8:58 AM RETAIL EVENT AND SALES ASSISTANT) Anatomical Region Laterality Modality Body N/A Computed Tomogra phy 08/14/2024 2:44 PM RETAIL EVENT AND SALES ASSISTANT Narrative 08/14/2024 2:50 PM RETAIL EVENT AND SALES ASSISTANT EXAM DESCRIPTION: CT ABDOMEN PELVIS W CONTRAST [...] Zia Boyce M.D. KT T: Report ID: [id number] Reading Location: [id number] Procedure Note Zia Boyce MD - 08/14/2024 [...] Zia Boyce M.D. KT T: Report ID: [id number] Reading Location: [place] [address] Indira Castano MD IMG CT PROCEDURES Final R esult * eGFR (07/29/2018 6:53 AM RETAIL EVENT AND SALES ASSISTANT) eGFR 96 mL/min/1.7 3 m2 EVAN MERCER Comment: Interpretive Data Reference Interval Normal >/= 90 mL/min/1.73m2 Mildly decreased* 60 - 89 mL/min/1.73m2 Mildly to moderately decreased 45 - 59 mL/min/1.73m2 Moderately to severely decreased 30 - 44 mL/min/1.73m2 Severely decreased 15 - 29 mL/min/1.73m2 Kidney Failure < 15 mL/min/1.73m2 *Relative to young adult level If -Romanian multiply value by 1.16. Estimated glomerular filtration [...] 2016. Blood specimen (specimen) 07/29/2018 6:53 AM RETAIL EVENT AND SALES ASSISTANT 07/29/2018 7:36 AM RETAIL EVENT AND SALES ASSISTANT Narrative EVAN MERCER - 07/29/2018 8:01 AM RETAIL EVENT AND SALES ASSISTANT Heike LUCERO LAB BLOOD ORDERABLES Final R esult [facility] [address] Department [place] [address] from Last 3 Months or Most Recently Relevant to Health Maintenance Insurance MEDICARE MEDICARE [place] TRADITIONAL OOS Advance Directives For more information, please contact: [phone] * Full Code (Latest Code Status on File) Date Activated Date Inactivated Comments 07/28/2018 2:06 PM 07/29/2018 2:58 PM Care Teams Worm Raiser Relationship Specialty Start Date End Date No, Physician PCP - General 08/06/24
--- OUTSIDE RECORDS SUMMARY | 2024-09-17 02:51 | XMS_ITS | Clinical Summary ---
Author Organization [facility] Address [address] [place] [address] Care Team Providers Care Ship Purser Name Role Phone Terrie Oneill MD Primary Care Provider +1- [phone] Social History Tobacco Use Types Packs/Day Years [...] age to complete this topic Insurance MEDICARE [facility] Care Teams Ship Purser Relationship Specialty Start Date End Date Terrie Oneill MD [address] [facility] [address] [facility] [address] [place] [address] PCP - General FAMILY PRACTICE 05/25/22
--- OUTSIDE RECORDS SUMMARY | 2024-09-17 02:51 | XMS_ITS | Patient Health Summary ---
Author Organization [facility] Address [address] [place] [address] Care Team Providers Care New Accounts Clerk Name Role Phone Terrie Oneill MD Primary Care Provider + Note from [facility],non-owned Affiliates and Associated Physician Practices is amultiple site organization consisting of ambulatory clinics and hospital sitesin [place], [place], [place] and [place]. This disclosure is being madepursuant to the Care Everywhere program and may not contain all information available regarding this patient. Last updated 18.[facility] Allergies * Ibuprofen(Vomiting) Medications * Be aware [...] Comments Blood Pressure 138/81 06/16/2024 10:12 AM FOOD CHECKER Pulse 65 06/16/2024 10:12 AM FOOD CHECKER Temperature 36.3 C (97.3 F) 06/16/2024 10:12 AM FOOD CHECKER Respiratory Rate 18 06/16/2024 10:12 AM FOOD CHECKER Oxygen Saturation 99% 06/16/2024 10:12 AM FOOD CHECKER Inhaled Oxygen Concentration - - Weight 93.4 kg (206 lb) 06/16/2024 10:12 AM FOOD CHECKER Height 182.9 cm (6') 06/16/2024 10:12 AM FOOD CHECKER Body Mass Index 27.94 06/16/2024 10:12 AM FOOD CHECKER Medical Devices Implanted Type Area Network Project Manager Device Identifier Shelf Expiration Date Model / Serial / Lot Pros Penl Ams 700 Ms Superintendent Transportation Ams Conceal Implanted:Qty: 1 on 04/14/2020 by Derek Ovalle MD at [facility] N/A: Penis [employer] Scimed 03/15/2022 [id number] / / [id number] Description:apart of total Kit Acc Ams 700 Penl Pros Implanted:Qty: 1 on 04/14/2020 by Derek Ovalle MD at [facility] N/A: Penis [employer] Scim[employer] 09/01/2024 [id number] / / [id number] Description:apart of total Ams 700 Cx Ms Pump Iz Implanted:Qty: 1 on 04/14/2020 by Derek Ovalle MD at [facility] N/A: Penis 10/16/2020 [id number] / / [id number] Pros Penl Ams 700 Ms Superintendent Transportation Ams Conceal Implanted:Qty: 1 on 12/15/2020 by Derek Ovalle MD at [facility] Left: Groin [employer] Scimed 11/08/2022 [id number] / / [id number] Kit Acc Ams 700 Penl Pros Implanted:Qty: 1 on 12/15/2020 by Derek Ovalle MD at [facility] Left: Groin Rollbase (acquired by [employer]) Scientific Scimed [id number] / / Description:apart of total Procedures * [place] MSR PVR U&/BLADD CAPCTY US NON(Performed 06/16/2024) Performed for Benign prostatic hyperplasia, unspecified whether lower urinary tract symptoms present * URINALYSIS AUTO - POINT OF CARE (AMB) [facility](Performed 06/15/2022) Performed for Urinary frequency * PATHOLOGY TISSUE(Performed 12/15/2020) Performed for Displacement of penile prosthesis implant, initial encounter (HCC) * ENDOTRACHEAL TUBE NOTE(Performed 12/15/2020) * KY CYSTOURETHROSCOPY(Performed 12/15/2020) Performed for Displacement of penile prosthesis implant, initial encounter ([facility] * INSERTION PENILE PROSTHESIS (ANY TYPE)(Performed 12/15/2020) Performed for Displacement of penile prosthesis implant, initial encounter ([facility]) * SARS-COV-2 (COVID-19) IN HOUSE(Performed 12/13/2020) Performed [...] implant, sequela, Urinary frequency, Pre-op testing * KY ANAL/URINARY MUSCLE STUDY(Performed 06/24/2020) Performed for Frequency of micturition , Urinary urgency * KY CYSTOMETROGRAM W/HEALTHCARE BUSINESS ANALYST(Performed 06/24/2020) Performed for Frequency of micturition , [...] due to erectile dysfunction, Pre-op testing * [place] MSR PVR U&/BLADD CAPCTY US NON(Performed 12/03/2019) Performed for Benign prostatic hyperplasia without lower urinary tract symptoms * URINALYSIS AUTO - POINT OF CARE (AMB) [facility](Performed 12/03/2019) Performed for Benign prostatic hyperplasia without lower urinary tract symptoms * URINALYSIS AUTO - POINT OF CARE (AMB) [facility](Performed 08/31/2019) Performed for Benign prostatic hyperplasia with urinary frequency Results * [place] MSR PVR U&/BLADD CAPCTY US NON (06/16/2024 10:18 AM FOOD CHECKER) Narrative Ryan Dickson LPN - 06/16/2024 10:18 AM FOOD CHECKER Ryan Dickson LPN 06/16/2024 1:42 PM PVR-52ml Autumn Hunter CHICKEN RAISER-MANAGER ACTION PROCEDURE/MINOR SURGICAL ORDERABLES * URINALYSIS AUTO - POINT OF CARE (AMB) [facility] (06/15/2022 11:40 AM FOOD CHECKER) Only the most recent of3 resultswithin the time period is included. Glucose UA neg Bilirubin UA POCT neg Ketones UA POCT neg Specific [place] UA 1.020 Blood Urine POCT neg pH UA 5.5 Protein UA neg Urobilinogen UA neg Nitrite UA neg WBC UA neg Urine URINE / Unknown 06/15/2022 1 1:40 AM FOOD CHECKER Derek Ovalle MD LAB - POINT OF CAR E ORDERABLES * PATHOLOGY TISSUE (12/15/2020 8:42 AM CDT) Case Report Surgical Pathology Report Case: [id number] Authorizing Provider: Derek Ovalle MD Collected: 12/15/2020 08:42 AM Ordering Location: [facility] Received: 12/15/2020 11:35 AM Pathologist: Manuel Brumfield MD Specimen: Foreign Object, Penile 12/26/2020 3:09 PM CDT [facility] Final Diagnosis Foreign body, removal: - Grossly unremarkable medical hardware 12/26/2020 3:09 PM CDT [facility] PATH[facility] LAB Microscopic Description and Comment Gross only diagnosis 12/26/2020 3:09 PM CDT [facility] Clinical History Herniated penile prosthesis 12/26/2020 3:09 PM CDT [facility] Gross Description The requisition and specimen label(s) are identified with the patient's name,Scott Viveros. Received fresh, specimen A , is a fluid-filled transparent bag 6 x 5 cm with a narrow tubing 4 x 2 cm. No inscriptions on the device. This is for gross exam only. MA 12/26/2020 3:09 PM CDT [facility] Disclaimer The performance characteristics of all immunohistochemical and indirect immunofluorescence stains (if any) cited in this report were determined by the Histopathology Laboratory of [facility]. Some of these tests were developed by [...] attending (teaching) pathologist. 12/26/2020 3:09 PM CDT [facility] Embedded Images 12/26/2020 3:09 PM T [facility] Gross only MISCELLANEOUS SAMPLES / Unknown 12/15/2020 8:42 AM CDT 12/15/2020 11:35 AM CDT Comment:Pre-op diagnosis: Displacement of penile prosthesis implant, initial encounter Derek Ovalle MD LAB - PATHOLOGY/CY TOLOGY ORDERABLES Performing Organization Address City/State/[facility] Co de Phone Number [facility]OLOG[facility] LAB [address] [place] [address], [facility] [phone] * ETT LINE PERFORMABLE (12/15/2020 8:33 AM CDT) Narrative Candy Villeda DO - 12/15/2020 8:33 AM CDT Candy Villeda DO 12/15/2020 9:20 AM Endotracheal Tube Placement: Patient Location: OR. Intubation Event Date/Time: 12/15/2020 8:00 AM Procedure: intubation ([id number]). Procedure Section: Sedation: IV sedation. Induction: standard [...] Candy Villeda DO. Provider #2: Hawa Page, CHICKEN RAISER-MICROECONOMICS PROFESSOR, Performed the procedure. Additional Comments: Difficult anterior [...] detected Not detected 12/14/2020 5:00 AM CDT [facility]CRO[facility]OLOG[facility] Microbiology SPECIMEN FROM NASOPHARYNGEAL STRUCTURE / Unknown Collection / Unknown 12/13/2020 10:51 AM CDT 12/13/2020 1:54 PM CDT Narrative [facility] - 12/14/2020 5:00 AM CDT This nucleic acid amplification assay performance was validated by [facility]. This test has been [...] LAB - MICROBIOLOGY ORDERABLES Performing Organization Address City/[facility]/ZIP Co de Phone Number [facility] [address] [phone] * (ABNORMAL) URINALYSIS NO MICROSCOPIC NO CULTURE (12/01/2020 10:57 AM CDT) Only the most recent of2 resultswithin the time period is included. Color UA YELLOW YELLOW [facility] Appearance CLEAR CLEAR [facility] Specific [place] UA 1.020 1.001 - 1.035 [facility] pH UA 5.5 5.0 - 8.0 [facility] Glucose UA NEGATIVE NEGATIVE [facility] Bilirubin UA NEGATIVE NEGATIVE [facility] Ketone UA NEGATIVE NEGATIVE [facility] Blood UA NEGATIVE NEGATIVE [facility] Protein UA NEGATIVE NEGATIVE [facility] Nitrite UA NEGATIVE NEGATIVE [facility] Leukocyte UA 1+(A) NEGATIVE [facility] Comment: Test Performed at: [facility] [address] [place] [address] SHEILA MARCUS DO,MPH Urine URINE SPECIMEN OBTAINED BY CLEAN CATCH PROCEDURE / Unknown 12/01/2020 10:57 AM CDT 12/01/2020 11:01 AM CDT Derek Ovalle MD LAB - URINALYSIS O RDERABLES Performing Organization Address City/[facility]/ZIP Co de Phone Number [facility] [address] [place] [address] * CULTURE URINE (12/01/2020 10:57 AM CDT) Only the most recent of2 resultswithin the time period is included. Pathologist [facility] Culture [facility] Comment: CULTURE, URINE, ROUTINE Micro Number: [id number] Test Status: Final Specimen Source: URINE, CLEAN CATCH Specimen Quality: Adequate Result: No Growth REPORT COMMENT: FASTING:NO Test Performed at: [facility] [address] ATTILA HANSEN MD Urine URINE SPECIMEN OBTAINED BY CLEAN CATCH PROCEDURE / Unknown 12/01/2020 10:57 AM CDT 12/01/2020 11:01 AM CDT Derek Ovalle MD LAB - MICROBIOLOGY ORDERABLES [address] [address] * CBC WITH DIFFERENTIAL (12/01/2020 10:57 AM CDT) Only the most recent of2 resultswithin the time period is included. Pathologist [facility] White Blood Cell Count 10.4 3.8 - [...] 0.7 % [facility] Comment: Test Performed at: [facility] [address] [employer] [email or web address] [address] SHEILA MARCUS DO,MPH Blasts [facility] nR [facility] Comments [facility] Comment: Test Performed at: [facility] [address] [address] [place] [address] SHEILA MARCUS DO,MPH Blood BLOOD SPECIMEN / Unknown 12/01/2020 10:57 AM CDT 12/01/2020 11:01 AM CDT Derek Ovalle MD LAB - HEMATOLOGY O RDERABLES Performing Organization Address [facility] Co de Phone Number [facility] [address] [place] [address] * BASIC METABOLIC PANEL (CALCIUM TOTAL) (12/01/2020 [...] approximately 13% higher for people identified as -Georgian. eGFR by MDRD 81 > OR = [...] 10.3 mg/dL [facility] Comment: Test Performed at: [facility] [address] [employer] [email or web address] [address] SHEILA MARCUS DO,MPH Blood BLOOD SPECIMEN / Unknown 12/01/2020 10:57 AM CDT 12/01/2020 11:01 AM CDT Derek Ovalle MD LAB - CHEMISTRY OR DERABLES Performing Organization Address [facility]/ZIP Co de Phone Number [facility] [address] [place] [address] * [place] CYSTOMETROGRAM W/HEALTHCARE BUSINESS ANALYST, [place] ANAL/URINARY MUSCLE STUDY (06/24/2020 10:06 AM FOOD CHECKER) Derek Winslow MD - 06/24/2020 10:06 AM FOOD CHECKER Derek Ovalle MD 06/24/2020 10:09 AM Urodynamic [...] (04/14/2020 3:07 PM CDT) Narrative Laila De Anda Anes Asst - 04/14/2020 3:07 PM CDT Laila De Anda Anes Assmoshe 04/14/2020 3:08 PM Endotracheal Tube Placement: Patient Location: OR. Procedure: intubation ([id number]). Procedure Section: Sedation: under general anesthesia. Indications [...] - 6.3 % 04/06/2020 5:17 PM CDT [facility] Estimated Average Glucose 128 mg/dL 04/06/2020 5:17 PM CDT [facility] Comment: HbA1c Interpretation: Treatment target values recommended by ADA and other clinical organizations should be used to evaluate metabolic control in patients. Treatment Target Values: Normal : < 5.7% Pre-diabetes: 5.7-6.4% Diabetes: Equal to or greater than 6.5% Reference: [place] [employer] Standards of Care in Diabetes -2014 In patients 70 years and older consider HbA1c target range of 7.0-7.5% Reference: Diabetes Mellitus in Older People: Position Statement on behalf of the International Association of Gerontology and Geriatrics (IAGG), the Diabetes Working Alliance Party for Older People (EDWPOP), and the International Task Force of Experts in Diabetes. Michael Jack, et al. J [place] [employer]. 2012 Test results diagnostic of diabetes should be repeated for confirmation. The Sebia Capillary 2 assay for the measurement of HbA1c is a National Glycohemoglobin Standardization Program (NGSP)certified method. Blood BLOOD SPECIMEN / Unknown Lab Venipuncture / Unknown 04/06/2020 12:42 PM CDT 04/06/2020 2:53 PM CDT Derek Ovalle MD LAB - CHEMISTRY OR DERABLES [facility] [address] [address], [facility] [phone] * [place] MSR PVR U&/BLADD CAPCTY US NON (12/03/2019 12:29 PM CDT) Narrative Adrian Su - 12/03/2019 12:29 PM CDT Adrian Su 12/03/2019 12:45 PM Bladder scan 48 ml Melly Livingston CHICKEN RAISER-MANAGER ACTION PROCEDURE/MIN OR SURGICAL ORDERABLES Care Teams New Accounts Clerk Relationship Specialty Start Date End Date Terrie Oneill MD [address] [place], [place] [id number] PCP - General 08/20/19
[2024-09-17 03:30] VITALS: BP 160/73; PULSE 113; RESP 20; TEMP 36.1; O2SAT 96
[2024-09-17] MEDS: PIPERACILLN/TAZ 3.375GM/NS50ML 3.375 GM/50 ML BAG IVPB ×3 (03:34→16:34)
[2024-09-17] MEDS: LACTATED RINGERS 1,000 ML 100 ML IV CONT ×2 (03:34→16:42)
[2024-09-17 05:42] LABS: Glucose Point of Care 154 mg/dl (65-105)
--- OUTSIDE RECORDS SUMMARY | 2024-09-17 07:00 | XMS_ITS | Patient Health Summary ---
Author Organization [facility] Address [address] [place] [address] Care Team Providers Care Stem Roller Or Crusher Operator Name Role Phone Terrie Oneill MD Primary Care Provider + Note from [facility],non-owned Affiliates and Associated Physician Practices is amultiple site organization consisting of ambulatory clinics and hospital sitesin [place], [place] and [place]. This disclosure is being madepursuant to the Care Everywhere program and may not contain all information available regarding this patient. Last updated 18.[facility] Allergies * Ibuprofen(Vomiting) Medications * Be [...] Comments Blood Pressure 138/81 06/16/2024 10:12 AM 3RD MATE Pulse 65 06/16/2024 10:12 AM 3RD MATE Temperature 36.3 C (97.3 F) 06/16/2024 10:12 AM 3RD MATE Respiratory Rate 18 06/16/2024 10:12 AM 3RD MATE Oxygen Saturation 99% 06/16/2024 10:12 AM 3RD MATE Inhaled Oxygen Concentration - - Weight 93.4 kg (206 lb) 06/16/2024 10:12 AM 3RD MATE Height 182.9 cm (6') 06/16/2024 10:12 AM 3RD MATE Body Mass Index 27.94 06/16/2024 10:12 AM 3RD MATE Medical Devices Implanted Type Area Die Mechanic Device Identifier Shelf Expiration Date Model / Serial / Lot Pros Penl Ams 700 Ms It Help Desk Technician Ams Conceal Implanted:Qty: 1 on 04/14/2020 by Derek Ovalle MD at [facility] N/A: Penis [employer] [employer] 03/15/2022 [id number] / / [id number] Description:apart of total Kit Acc Ams 700 Penl Pros Implanted:Qty: 1 on 04/14/2020 by Derek Ovalle MD at [facility] N/A: Penis [place] [employer] 09/01/2024 [id number] / / [id number] Description:apart of total Ams 700 Cx Ms Pump Iz Implanted:Qty: 1 on 04/14/2020 by Derek Ovalle MD at [facility] N/A: Penis 10/16/2020 [id number] / / [id number] Pros Penl Ams 700 Ms It Help Desk Technician Ams Conceal Implanted:Qty: 1 on 12/15/2020 by Derek Ovalle MD at [facility] Left: Groin [place] [employer] 11/08/2022 [id number] / / [id number] Kit Acc Ams 700 Penl Pros Implanted:Qty: 1 on 12/15/2020 by Derek Ovalle MD at [facility] Left: Groin [employer] Scimed [id number] / / Description:apart of total Procedures * MS MSR PVR U&/BLADD CAPCTY US NON(Performed 06/16/2024) Performed for Benign prostatic hyperplasia, unspecified whether lower urinary tract symptoms present * URINALYSIS AUTO - POINT OF CARE (AMB) [facility](Performed 06/15/2022) Performed for Urinary frequency * PATHOLOGY TISSUE(Performed 12/15/2020) Performed for Displacement of penile prosthesis implant, initial encounter (HCC) * ENDOTRACHEAL TUBE NOTE(Performed 12/15/2020) * MS CYSTOURETHROSCOPY(Performed 12/15/2020) Performed for Displacement of penile prosthesis implant, initial encounter ([facility]) * INSERTION PENILE PROSTHESIS (ANY TYPE)(Performed 12/15/2020) Performed for Displacement of penile prosthesis implant, initial encounter ([facility]) * SARS-COV-2 (COVID-19) IN HOUSE(Performed [...] implant, sequela, Urinary frequency, Pre-op testing * MS ANAL/URINARY MUSCLE STUDY(Performed 06/24/2020) Performed for Frequency of micturition , Urinary urgency * MS CYSTOMETROGRAM W/LIGHTNING ROD ERECTOR(Performed 06/24/2020) Performed for Frequency of micturition , [...] due to erectile dysfunction, Pre-op testing * MS MSR PVR U&/BLADD CAPCTY US NON(Performed 12/03/2019) Performed for Benign prostatic hyperplasia without lower urinary tract symptoms * URINALYSIS AUTO - POINT OF CARE (AMB) [facility](Performed 12/03/2019) Performed for Benign prostatic hyperplasia without lower urinary tract symptoms * URINALYSIS AUTO - POINT OF CARE (AMB) [facility](Performed 08/31/2019) Performed for Benign prostatic hyperplasia with urinary frequency Results * MS MSR PVR U&/BLADD CAPCTY US NON (06/16/2024 10:18 AM 3RD MATE) Narrative Ryan Dickson LPN - 06/16/2024 10:18 AM 3RD MATE Ryan Dickson LPN 06/16/2024 1:42 PM PVR-52ml Autumn Hunter BURN TABLE OPERATOR-RECREATIONAL SPORTS DIRECTOR PROCEDURE/MINOR SURGICAL ORDERABLES * URINALYSIS AUTO - POINT OF CARE (AMB) [facility] (06/15/2022 11:40 AM 3RD MATE) Only the most recent of3 resultswithin the time period is included. Glucose UA neg Bilirubin UA POCT neg Ketones UA POCT neg Specific [place] UA 1.020 Blood Urine POCT neg pH UA 5.5 Protein UA neg Urobilinogen UA neg Nitrite UA neg WBC UA neg Urine URINE / Unknown 06/15/2022 1 1:40 AM 3RD MATE Derek Ovalle MD LAB - POINT OF CAR E ORDERABLES * PATHOLOGY TISSUE (12/15/2020 8:42 AM CDT) Case Report Surgical Pathology Report Case: [id number] Authorizing Provider: Derek Ovalle MD Collected: 12/15/2020 08:42 AM Ordering Location: [facility] Received: 12/15/2020 11:35 AM Pathologist: Manuel Brumfield MD Specimen: Foreign Object, Penile 12/26/2020 3:09 PM CDT [facility] Final Diagnosis Foreign body, removal: - Grossly unremarkable medical hardware 12/26/2020 3:09 PM CDT [facility] PATH[facility]Y LAB Microscopic Description and Comment Gross only diagnosis 12/26/2020 3:09 PM CDT [facility] Clinical History Herniated penile prosthesis 12/26/2020 3:09 PM CDT [facility] Gross Description The requisition and specimen label(s) are identified with the patient's name,Scott Viveros. Received fresh, specimen A , is a fluid-filled transparent bag 6 x 5 cm with a narrow tubing 4 x 2 cm. No inscriptions on the device. This is for gross exam only. MA 12/26/2020 3:09 PM CDT [facility] Disclaimer The performance characteristics of all immunohistochemical and indirect immunofluorescence stains (if any) cited in this report were determined by the Histopathology Laboratory of [facility]. Some of these tests were developed [...] attending (teaching) pathologist. 12/26/2020 3:09 PM CDT [facility] Embedded Images 12/26/2020 3:09 PM T [facility] Gross only MISCELLANEOUS SAMPLES / Unknown 12/15/2020 8:42 AM CDT 12/15/2020 11:35 AM CDT Comment:Pre-op diagnosis: Displacement of penile prosthesis implant, initial encounter Derek Ovalle MD LAB - PATHOLOGY/CY TOLOGY ORDERABLES Performing Organization Address City/State/[facility] Co de Phone Number [facility] LAB [address] [place] [address], [facility] [phone] * ETT LINE PERFORMABLE (12/15/2020 8:33 AM CDT) Narrative Candy Villeda DO - 12/15/2020 8:33 AM CDT Candy Villeda DO 12/15/2020 9:20 AM Endotracheal Tube Placement: Patient Location: OR. Intubation Event Date/Time: 12/15/2020 8:00 AM Procedure: intubation (77944). Procedure Section: Sedation: IV sedation. Induction: standard [...] Candy Villeda DO. Provider #2: Hawa Page, BURN TABLE OPERATOR-CHAIR INSPECTOR AND LEVELER, Performed the procedure. Additional Comments: Difficult anterior [...] detected Not detected 12/14/2020 5:00 AM CDT [facility] Microbiology SPECIMEN FROM NASOPHARYNGEAL STRUCTURE / Unknown Collection / Unknown 12/13/2020 10:51 AM CDT 12/13/2020 1:54 PM CDT Narrative [facility] - 12/14/2020 5:00 AM CDT This nucleic acid amplification assay performance was validated by [facility]. This test has been [...] LAB - MICROBIOLOGY ORDERABLES Performing Organization Address City/[facility]/ZIP Co de Phone Number [facility] [address] [phone] * (ABNORMAL) URINALYSIS NO MICROSCOPIC NO CULTURE (12/01/2020 10:57 AM CDT) Only the most recent of2 resultswithin the time period is included. Color UA YELLOW YELLOW [facility] Appearance CLEAR CLEAR [facility] Specific [place] UA 1.020 1.001 - 1.035 [facility] pH UA 5.5 5.0 - 8.0 [facility] Glucose UA NEGATIVE NEGATIVE [facility] Bilirubin UA NEGATIVE NEGATIVE [facility] Ketone UA NEGATIVE NEGATIVE [facility] Blood UA NEGATIVE NEGATIVE [facility] Protein UA NEGATIVE NEGATIVE [facility] Nitrite UA NEGATIVE NEGATIVE [facility] Leukocyte UA 1+(A) NEGATIVE [facility] Comment: Test Performed at: [facility] [address] [place] [address] SHEILA MARCUS DO,MPH Urine URINE SPECIMEN OBTAINED BY CLEAN CATCH PROCEDURE / Unknown 12/01/2020 10:57 AM CDT 12/01/2020 11:01 AM CDT Derek Ovalle MD LAB - URINALYSIS O RDERABLES Performing Organization Address City/[facility]/ZIP Co de Phone Number [facility] [phone] [place] [address] * CULTURE URINE (12/01/2020 10:57 AM CDT) Only the most recent of2 resultswithin the time period is included. Pathologist [facility] Culture [facility] Comment: CULTURE, URINE, ROUTINE Micro Number: [id number] Test Status: Final Specimen Source: URINE, CLEAN CATCH Specimen Quality: Adequate Result: No Growth REPORT COMMENT: FASTING:NO Test Performed at: [facility] [address] ATTILA HANSEN MD Urine URINE SPECIMEN OBTAINED BY CLEAN CATCH PROCEDURE / Unknown 12/01/2020 10:57 AM CDT 12/01/2020 11:01 AM CDT Derek Ovalle MD LAB - MICROBIOLOGY ORDERABLES [address] [address] * CBC WITH DIFFERENTIAL (12/01/2020 10:57 AM CDT) Only the most recent of2 resultswithin the time period is included. Pathologist [facility] White Blood Cell Count 10.4 3.8 - [...] 0.7 % [facility] Comment: Test Performed at: [facility] [address] [employer] [place] [address] SHEILA MARCUS DO,MPH Blasts [facility] nR [facility] Comments [facility] Comment: Test Performed at: [facility] [address] [address] [employer] [place] [address] SHEILA MARCUS DO,MPH Blood BLOOD SPECIMEN / Unknown 12/01/2020 10:57 AM CDT 12/01/2020 11:01 AM CDT Derek Ovalle MD LAB - HEMATOLOGY O RDERABLES Performing Organization Address [facility] Co de Phone Number [facility] [address] [place] [address] * BASIC METABOLIC PANEL (CALCIUM TOTAL) (12/01/2020 [...] approximately 13% higher for people identified as -Sol[place] Islander. eGFR by MDRD 81 > OR = [...] 10.3 mg/dL [facility] Comment: Test Performed at: [facility] [address] [employer] [place] [address] SHEILA MARCUS DO,MPH Blood BLOOD SPECIMEN / Unknown 12/01/2020 10:57 AM CDT 12/01/2020 11:01 AM CDT Derek Ovalle MD LAB - CHEMISTRY OR DERABLES Performing Organization Address [facility]/ZIP Co de Phone Number [facility] [phone] [place] [address] * MS CYSTOMETROGRAM W/LIGHTNING ROD ERECTOR, MS ANAL/URINARY MUSCLE STUDY (06/24/2020 10:06 AM 3RD MATE) Derek Winslow MD - 06/24/2020 10:06 AM 3RD MATE Derek Ovalle MD 06/24/2020 10:09 AM Urodynamic [...] Tube Placement: Patient Location: OR. Procedure: intubation ([id number]). Procedure Section: Sedation: under general anesthesia. Indications [...] - 6.3 % 04/06/2020 5:17 PM CDT [facility] Estimated Average Glucose 128 mg/dL 04/06/2020 5:17 PM CDT [facility] Comment: HbA1c Interpretation: Treatment target values recommended by ADA and other clinical organizations should be used to evaluate metabolic control in patients. Treatment Target Values: Normal : < 5.7% Pre-diabetes: 5.7-6.4% Diabetes: Equal to or greater than 6.5% Reference: [place] Diabetes Association Standards of Care in Diabetes -2014 In patients 70 years and older consider HbA1c target range of 7.0-7.5% Reference: Diabetes Mellitus in Older People: Position Statement on behalf of the International Association of Gerontology and Geriatrics (IAGG), the Diabetes Working Constitution Party for Older People (EDWPOP), and the International Task Force of Experts in Diabetes. Michael Jack, et al. J [place] Medical Directors Association. 2012 Test results diagnostic of diabetes should be repeated for confirmation. The Sebia Capillary 2 assay for the measurement of HbA1c is a National Glycohemoglobin Standardization Program (NGSP)certified method. Blood BLOOD SPECIMEN / Unknown Lab Venipuncture / Unknown 04/06/2020 12:42 PM CDT 04/06/2020 2:53 PM CDT Derek Ovalle MD LAB - CHEMISTRY OR DERABLES [facility] [address] [address], [facility] [phone] * MS MSR PVR U&/BLADD CAPCTY US NON (12/03/2019 12:29 PM CDT) Narrative Adrian Su - 12/03/2019 12:29 PM CDT Adrina Su 12/03/2019 12:45 PM Bladder scan 48 ml Melly Livingston BURN TABLE OPERATOR-RECREATIONAL SPORTS DIRECTOR PROCEDURE/MIN OR SURGICAL ORDERABLES Care Teams Stem Roller Or Crusher Operator Relationship Specialty Start Date End Date Terrie Oneill MD [address] [place], [place] [phone] PCP - General 08/20/19
--- OUTSIDE RECORDS SUMMARY | 2024-09-17 07:00 | XMS_ITS | Clinical Summary ---
Author Organization [facility] Address [address] [place] [address] Care Team Providers Care Core Paster Name Role Phone Terrie Oneill MD Primary Care Provider + Source Comments [facility],non-owned Affiliates and Associated Physician Practices is amultiple site organization consisting of ambulatory clinics and hospital sitesin [place], [place], [place] and [place]. This disclosure is being madepursuant to the Care Everywhere program and may not contain all information available regarding this patient. Last updated 18.[facility] Allergies Active Allergy Reactions Criticality [...] Comments Blood Pressure 138/81 06/16/2024 10:12 AM ADMINISTRATIVE SUPPORT ASSOCIATE Pulse 65 06/16/2024 10:12 AM ADMINISTRATIVE SUPPORT ASSOCIATE Temperature 36.3 C (97.3 F) 06/16/2024 10:12 AM ADMINISTRATIVE SUPPORT ASSOCIATE Respiratory Rate 18 06/16/2024 10:12 AM ADMINISTRATIVE SUPPORT ASSOCIATE Oxygen Saturation 99% 06/16/2024 10:12 AM ADMINISTRATIVE SUPPORT ASSOCIATE Inhaled Oxygen Concentration - - Weight 93.4 kg (206 lb) 06/16/2024 10:12 AM ADMINISTRATIVE SUPPORT ASSOCIATE Height 182.9 cm (6') 06/16/2024 10:12 AM ADMINISTRATIVE SUPPORT ASSOCIATE Body Mass Index 27.94 06/16/2024 10:12 AM ADMINISTRATIVE SUPPORT ASSOCIATE Plan of Treatment Upcoming Encounters Date Type Department Care Team (Late st Contact Info) Description 12/15/2024 11:30 AM CDT Office Visit [facility] - Urology [address] [place] [address], [place] [address] Autumn Hunter, PRINTED CIRCUIT BOARDS ROUTER-HORTICULTURAL FARMWORKER [address] [place] [address] [place] [address] Health Maintenance Due Date Last Done Comments [...] this topic Medical Devices Implanted Type Area Patient Service Technician Pst Device Identifier Shelf Expiration Date Model / Serial / Lot Pros Penl Ams 700 Ms Clinical Nurse Ams Conceal Implanted:Qty: 1 on 04/14/2020 by Derek Ovalle MD at [facility] N/A: Penis [place] [employer] 03/15/2022 [id number] / / [id number] Description:apart of total Kit Acc Ams 700 Penl Pros Implanted:Qty: 1 on 04/14/2020 by Derek Ovalle MD at [facility] N/A: Penis [place] [employer] 09/01/2024 [id number] / / [id number] Description:apart of total Ams 700 Cx Ms Pump Iz Implanted:Qty: 1 on 04/14/2020 by Derek Ovalle MD at [facility] N/A: Penis 10/16/2020 [id number] / / [id number] Pros Penl Ams 700 Ms Clinical Nurse Ams Conceal Implanted:Qty: 1 on 12/15/2020 by Derek Ovalle MD at [facility] Left: Groin [employer] 11/08/2022 [id number] / / [id number] Kit Acc Ams 700 Penl Pros Implanted:Qty: 1 on 12/15/2020 by Derek Ovalle MD at [facility] Left: Groin [employer] [id number] / / Description:apart of total Advance Directives * Full Code (Latest Code Status on File) Date Activated Date Inactivated Comments 12/15/2020 10:15 AM 12/16/2020 10:57 AM * Full Code Date Activated Date Inactivated Comments 04/14/2020 6:31 PM 04/15/2020 2:24 PM Care Teams Core Paster Relationship Specialty Start Date End Date Terrie Oneill MD [address] [facility] [address] [place], [place] [phone] PCP - General 08/20/19
--- OUTSIDE RECORDS SUMMARY | 2024-09-17 07:00 | XMS_ITS | Referral Summary ---
Author Organization [facility] Address [address] [place] [address] Care Team Providers Care Cake Wringer Name Role Phone Terrie Oneill MD Primary Care Provider + Source Comments [facility],non-owned Affiliates and Associated Physician Practices is amultiple site organization consisting of ambulatory clinics and hospital sitesin [place], [place] and [place]. This disclosure is being madepursuant to the Care Everywhere program and may not contain all information available regarding this patient. Last updated 18.[facility] Allergies Active Allergy Reactions Criticality Noted Date [...] Comments Blood Pressure 138/81 06/16/2024 10:12 AM DRYING MACHINE BACK TENDER Pulse 65 06/16/2024 10:12 AM DRYING MACHINE BACK TENDER Temperature 36.3 C (97.3 F) 06/16/2024 10:12 AM DRYING MACHINE BACK TENDER Respiratory Rate 18 06/16/2024 10:12 AM DRYING MACHINE BACK TENDER Oxygen Saturation 99% 06/16/2024 10:12 AM DRYING MACHINE BACK TENDER Inhaled Oxygen Concentration - - Weight 93.4 kg (206 lb) 06/16/2024 10:12 AM DRYING MACHINE BACK TENDER Height 182.9 cm (6') 06/16/2024 10:12 AM DRYING MACHINE BACK TENDER Body Mass Index 27.94 06/16/2024 10:12 AM DRYING MACHINE BACK TENDER Plan of Treatment Upcoming Encounters Date Type Department Care Team (Late st Contact Info) Description 12/15/2024 11:30 AM CDT Office Visit [facility] - Urology [address] [place] [address], [place] [address] Autumn Hunter, TANK WAGON OPERATOR-HYDROELECTRIC MACHINERY MECHANIC [address] [place] [address] DEPT [place] [address] Medical Devices Implanted Type Area Office Clinician Device Identifier Shelf Expiration Date Model / Serial / Lot Pros Penl Ams 700 Ms Mis Specialist Ams Conceal Implanted:Qty: 1 on 04/14/2020 by Derek Ovalle MD at [facility] N/A: Penis [employer] 03/15/2022 [id number] / / [id number] Description:apart of total Kit Acc Ams 700 Penl Pros Implanted:Qty: 1 on 04/14/2020 by Derek Ovalle MD at [facility] N/A: Penis [employer] 09/01/2024 [id number] / / [id number] Description:apart of total Ams 700 Cx Ms Pump Iz Implanted:Qty: 1 on 04/14/2020 by Derek Ovalle MD at [facility] N/A: Penis 10/16/2020 [id number] / / [id number] Pros Penl Ams 700 Ms Mis Specialist Ams Conceal Implanted:Qty: 1 on 12/15/2020 by Derek Ovalle MD at [facility] Left: Groin [employer] 11/08/2022 [id number] / / [id number] Kit Acc Ams 700 Penl Pros Implanted:Qty: 1 on 12/15/2020 by Derek Ovalle MD at [facility] Left: Groin [employer] [id number] / / Description:apart of total Advance Directives * Full Code (Latest Code Status on File) Date Activated Date Inactivated Comments 12/15/2020 10:15 AM 12/16/2020 10:57 AM * Full Code Date Activated Date Inactivated Comments 04/14/2020 6:31 PM 04/15/2020 2:24 PM Care Teams Cake Wringer Relationship Specialty Start Date End Date Terrie Oneill MD [address] [facility] [address] [place], [place] [phone] PCP - General 08/20/19
--- OUTSIDE RECORDS SUMMARY | 2024-09-17 07:00 | XMS_ITS | Clinical Summary ---
Author Organization [facility] [address] [place] [id number] Care Team Providers Care Wire Chief Name Role Phone No, Physician Primary Care Provider Allergies No known active allergies Medications metFORMIN [...] cervical decompressive surgery and fusion by our agriculture extension specialist this fall after his class reunion. [...] Department Care Team Description 08/13/2024 8:17 AM ABRASIVE GRINDER - 08/13/2024 11:59 PM ABRASIVE GRINDER Hospital En[facility] [address] [place] [address] Abnormal weight loss Discharge Disposition: Discharge to [...] on file Legal Sex Male 7:26 PM ABRASIVE GRINDER Gender Identity Male 09/24/2019 9:10 PM CDT Sexual Orientation Straight 09/24/2019 9: 08 PM CDT Obstetrics History Last Filed Vital Signs Vital Sign Reading Time Taken Comments Blood Pressure 122/84 10/23/2018 8:51 AM CDT Pulse 69 07/29/2018 7:59 AM ABRASIVE GRINDER Temperature 36.6 C (97.9 F) 07/29/2018 7:59 AM ABRASIVE GRINDER Respiratory Rate 20 07/29/2018 7:59 AM ABRASIVE GRINDER Oxygen Saturation 92% 07/29/2018 8:27 AM ABRASIVE GRINDER Inhaled Oxygen Concentration - - Weight 92.5 kg (204 lb) 08/20/2019 9:22 AM ABRASIVE GRINDER Height 183.1 cm (6' 0.1 ) 08/20/2019 9:22 AM ABRASIVE GRINDER Body Mass Index 27.59 08/20/2019 9:22 AM ABRASIVE GRINDER Plan of Treatment Health Maintenance Due Date [...] Completed 08/13/2024 Medical Devices Implanted Type Area Ground Services Instructor Device Identifier Shelf Expiration Date Model / Serial / Lot Veena Spine [id number] Nba-C 8-10mm 5.6mm Level 2 Lock Spine Long Plate Bone - [id number] Implanted:Qty: 1 on 07/28/2018 by Jose Fox MD at [facility] N/A: Cervical-L umbar Spine Veena Spine 09/12/2022 [id number] / / [id number] [employer] [id number] Nba-C Vertebridge 17x6.2-9mm 7d Lordotic 14mm Taper Cage .8cc - [id number] Implanted:Qty: 1 on 07/28/2018 by Jose Fox MD at [facility] N/A: Cervical-L umbar Spine [employer] 03/15/2021 [id number] / / [id number] [employer] [id number] Nba-C Vertebridge 17x4.2-7mm 7d Lordotic 14mm Taper Cage .61cc - [id number] Implanted:Qty: 1 on 07/28/2018 by Jose Fox MD at [facility] N/A: Cervical-L umbar Spine [employer] 05/15/2022 [id number] / / [id number] Veena Spine [id number] Nba-C 5-7mm Level 2 Lock Spine Standard Plate Bone - [id number] Implanted:Qty: 1 on 07/28/2018 by Jose Fox MD at [facility] N/A: Cervical-L umbar Spine Veena Spine 08/15/2022 [id number] / / [id number] Explanted Type Area Ground Services Instructor Device Identifier Shelf Expiration Date Model / Serial / Lot Pin Distraction [place] L12 Mm Self Drill Sterile Cervical Distractor System - [id number] Explanted:Qty: 2 on 07/28/2018 at [facility] N/A: Cervical-L umbar Spine [employer] [id number] / / Procedures Procedure Name Priority Date/Time Associated Diagnosis Comments CT ABDOMEN PELVIS W CONTRAST Schedule Routine, Read Routine (OP Routine) 08/13/2024 8:58 AM ABRASIVE GRINDER Abnormal weight loss EGFR Routine 07/29/2018 6:53 AM ABRASIVE GRINDER from Last 3 Months or Most Recently Relevant to Health Maintenance Results * CT Abdomen Pelvis W Contrast (08/13/2024 8:58 AM ABRASIVE GRINDER) Anatomical Region Laterality Modality Body N/A Computed Tomogra phy 08/14/2024 2:44 PM ABRASIVE GRINDER Narrative 08/14/2024 2:50 PM ABRASIVE GRINDER EXAM DESCRIPTION: CT ABDOMEN PELVIS W CONTRAST [...] Zia Boyce M.D. KT T: Report ID: [id number] Reading Location: [place] [address] Procedure Note Zia Boyce MD - 08/14/2024 [...] Zia Boyce M.D. KT T: Report ID: [id number] Reading Location: [place] [address] us Indira Castano MD IM CT PROCEDURES Final R esult * eGFR (07/29/2018 6:53 AM ABRASIVE GRINDER) eGFR 96 mL/min/1.7 3 m2 EVAN MERCER Comment: Interpretive Data Reference Interval Normal >/= 90 mL/min/1.73m2 Mildly decreased* 60 - 89 mL/min/1.73m2 Mildly to moderately decreased 45 - 59 mL/min/1.73m2 Moderately to severely decreased 30 - 44 mL/min/1.73m2 Severely decreased 15 - 29 mL/min/1.73m2 Kidney Failure < 15 mL/min/1.73m2 *Relative to young adult level If -Beninese multiply value by 1.16. Estimated glomerular filtration [...] 2016. Blood specimen (specimen) 07/29/2018 6:53 AM ABRASIVE GRINDER 07/29/2018 7:36 AM ABRASIVE GRINDER Narrative EVAN MERCER - 07/29/2018 8:01 AM ABRASIVE GRINDER Heike LUCERO LAB BLOOD ORDERABLES Final R esult EVAN MERCER [id number] [address] Department [place] [address] from Last 3 Months or Most Recently Relevant to Health Maintenance Insurance MEDICARE [facility] Address: [facility] [id number] [place] [id number] MEDICARE BLUE [employer] Advance Directives For more information, please contact: [phone] * Full Code (Latest Code Status on File) Date Activated Date Inactivated Comments 07/28/2018 2:06 PM 07/29/2018 2:58 PM Care Teams Wire Chief Relationship Specialty Start Date End Date No, Physician PCP - General 08/06/24
--- OUTSIDE RECORDS SUMMARY | 2024-09-17 07:01 | XMS_ITS | Referral Summary ---
Author Organization [facility] Address [address] [place] [address] Care Team Providers Care Designer Architect Name Role Phone No, Physician Primary Care Provider [phone] Encounters Date Type Department Care Team Description 08/13/2024 8:17 AM CROWN AND BRIDGE TECHNICIAN - 08/13/2024 11:59 PM CROWN AND BRIDGE TECHNICIAN Hospital Encounter [facility] [address] [place] [address] Abnormal weight loss Discharge Disposition: Discharge to [...] cervical decompressive surgery and fusion by our child care specialist this fall after his class reunion. [...] on file Legal Sex Male 7:26 PM CROWN AND BRIDGE TECHNICIAN Gender Identity Male 09/24/2019 9:10 PM CDT Sexual Orientation Straight 09/24/2019 9: 08 PM CDT Last Filed Vital Signs Vital Sign Reading Time Taken Comments Blood Pressure 122/84 10/23/2018 8:51 AM CDT Pulse 69 07/29/2018 7:59 AM CROWN AND BRIDGE TECHNICIAN Temperature 36.6 C (97.9 F) 07/29/2018 7:59 AM CROWN AND BRIDGE TECHNICIAN Respiratory Rate 20 07/29/2018 7:59 AM CROWN AND BRIDGE TECHNICIAN Oxygen Saturation 92% 07/29/2018 8:27 AM CROWN AND BRIDGE TECHNICIAN Inhaled Oxygen Concentration - - Weight 92.5 kg (204 lb) 08/20/2019 9:22 AM CROWN AND BRIDGE TECHNICIAN Height 183.1 cm (6' 0.1 ) 08/20/2019 9:22 AM CROWN AND BRIDGE TECHNICIAN Body Mass Index 27.59 08/20/2019 9:22 AM CROWN AND BRIDGE TECHNICIAN Plan of Treatment Not on file Medical Devices Implanted Type Area Residential Sales Device Identifier Shelf Expiration Date Model / Serial / Lot Veena Spine [id number] Nba-C 8-10mm 5.6mm Level 2 Lock Spine Long Plate Bone - [id number] Implanted:Qty: 1 on 07/28/2018 by Jose Fox MD at [facility] N/A: Cervical-L umbar Spine Veena Spine 09/12/2022 [id number] / / [id number] [employer] [id number] Nba-C Vertebridge 17x6.2-9mm 7d Lordotic 14mm Taper Cage .8cc - [id number] Implanted:Qty: 1 on 07/28/2018 by Jose Fox MD at [facility] N/A: Cervical-L umbar Spine [employer] 03/15/2021 [id number] / / [id number] [employer] [id number] Nba-C Vertebridge 17x4.2-7mm 7d Lordotic 14mm Taper Cage .61cc - [id number] Implanted:Qty: 1 on 07/28/2018 by Jose Fox MD at [facility] N/A: Cervical-L umbar Spine [employer] 05/15/2022 [id number] / / [id number] Veena Spine [id number] Nba-C 5-7mm Level 2 Lock Spine Standard Plate Bone - [id number] Implanted:Qty: 1 on 07/28/2018 by Jose Fox MD at [facility] N/A: Cervical-L umbar Spine Veena Spine 08/15/2022 [id number] / / [id number] Explanted Type Area Residential Sales Device Identifier Shelf Expiration Date Model / Serial / Lot Pin Distraction [place] L12 Mm Self Drill Sterile Cervical Distractor System - [id number] Explanted:Qty: 2 on 07/28/2018 at [facility] N/A: Cervical-L umbar Spine [employer] [id number] / / Procedures Procedure Name Priority Date/Time Associated Diagnosis Comments CT ABDOMEN PELVIS W CONTRAST Schedule Routine, Read Routine (OP Routine) 08/13/2024 8:58 AM CROWN AND BRIDGE TECHNICIAN Abnormal weight loss EGFR Routine 07/29/2018 6:53 AM CROWN AND BRIDGE TECHNICIAN from Last 3 Months or Most Recently Relevant to Health Maintenance Results * CT Abdomen Pelvis W Contrast (08/13/2024 8:58 AM CROWN AND BRIDGE TECHNICIAN) Anatomical Region Laterality Modality Body N/A Computed Tomogra phy 08/14/2024 2:44 PM CROWN AND BRIDGE TECHNICIAN Narrative 08/14/2024 2:50 PM CROWN AND BRIDGE TECHNICIAN EXAM DESCRIPTION: CT ABDOMEN PELVIS W CONTRAST [...] 2:50 PM - Electronically signed by Zia oByce M.D. KT T: Report ID: [id number] Reading Location: [id number] Procedure Note Zia Boyce MD - 08/14/2024 [...] Zia Boyce M.D. KT T: Report ID: [id number] Reading Location: [place] [address] Indira Castano MD IMG CT PROCEDURES Final R esult * eGFR (07/29/2018 6:53 AM CROWN AND BRIDGE TECHNICIAN) eGFR 96 mL/min/1.7 3 m2 EVAN MERCER Comment: Interpretive Data Reference Interval Normal >/= 90 mL/min/1.73m2 Mildly decreased* 60 - 89 mL/min/1.73m2 Mildly to moderately decreased 45 - 59 mL/min/1.73m2 Moderately to severely decreased 30 - 44 mL/min/1.73m2 Severely decreased 15 - 29 mL/min/1.73m2 Kidney Failure < 15 mL/min/1.73m2 *Relative to young adult level If -Jordanian multiply value by 1.16. Estimated glomerular filtration [...] 2016. Blood specimen (specimen) 07/29/2018 6:53 AM CROWN AND BRIDGE TECHNICIAN 07/29/2018 7:36 AM CROWN AND BRIDGE TECHNICIAN Narrative EVAN MERCER - 07/29/2018 8:01 AM CROWN AND BRIDGE TECHNICIAN Heike LUCERO LAB BLOOD ORDERABLES Final R esult [facility]AN [address] Department [place] [address] from Last 3 Months or Most Recently Relevant to Health Maintenance Insurance MEDICARE MEDICARE [employer] Advance Directives For more information, please contact: [phone] * Full Code (Latest Code Status on File) Date Activated Date Inactivated Comments 07/28/2018 2:06 PM 07/29/2018 2:58 PM Care Teams Designer Architect Relationship Specialty Start Date End Date No, Physician PCP - General 08/06/24
--- OUTSIDE RECORDS SUMMARY | 2024-09-17 07:01 | XMS_ITS | Clinical Summary ---
Author Organization [facility] Address [address] [place] [address] Care Team Providers Care Haul Truck Driver Name Role Phone Terrie Oneill MD Primary Care Provider [phone] Social History Tobacco Use Types Packs/Day Years [...] age to complete this topic Insurance MEDICARE [facility] Care Teams Haul Truck Driver Relationship Specialty Start Date End Date eTrrie Oneill MD [address] [facility] [address] [facility] [address] [place] [address] PCP - General FAMILY PRACTICE 05/25/22
--- NOTE | 2024-09-17 07:44 | ECG_ITS ---
Test Date: 2024-09-17 08:53:01 Measurements Intervals [place] Rate: 73 P: 40 AL: 172 QRS: 0 QRSD: 102 T: 5 QT: 365 QTc: 403 Interpretive Statements SINUS RHYTHM WITH OCCASIONAL SUPRAVENTRICULAR PREMATURE COMPLEXES INFERIOR MYOCARDIAL INFARCTION , PROBABLY OLD [40+ ms Q WAVE AND/OR ST/T ABNORMALITY IN II/aVF] No previous ECG available for comparison Electronically Signed On 09-17-2024 14:00:57 AIX SYSTEM ADMINISTRATOR by Daron Fish M.D.
[2024-09-17 08:36] LABS: Hemoglobin A1C 6.2 % (<5.7)
--- NOTE | 2024-09-17 08:49 | PM.CNGS ---
Assessment and Plan Assessment and plan (1) Small bowel obstruction: Code(s): K56.609 - Unspecified intestinal obstruction, unspecified as to partial versus complete obstruction Status: Acute Assessment and Plan: The patient presented with abdominal pain x 3 days. No nausea or vomiting until one episode in the ER. CT scan from outlying facility showed findings of a high-grade small bowel obstruction and suspicion for pneumatosis within multiple loops of dilated small bowel to the left of midline. The transition point was in the left lower quadrant at the level of the patient's reservoir for his penile prosthetic. This morning, the patient's abdominal pain has improved significantly and his bowels are moving. He is hemodynamically stable. No peritoneal signs on exam. He does not have any clinical findings at this time that would suggest a high-grade small bowel obstruction with bowel ischemia. Will repeat labs now and order a stat water-soluble small bowel follow through to further evaluate. If this shows a high-grade small bowel obstruction, then we will need to proceed with an exploratory laparotomy, but if the contrast moves through to the colon, then we can closely monitor for now. Continue NG tube, bowel rest, and IV fluids for now. Will follow for results of SBS. (2) Chronic obstructive pulmonary disease: Code(s): J44.9 - Chronic obstructive pulmonary disease, unspecified Status: Acute (3) Obstructive sleep apnea: Code(s): G47.33 - Obstructive sleep apnea (adult) (pediatric) Status: Acute Plan I have discussed the patient's case and plan of care with Dr. Myles. Thank you for allowing us to see the patient in consultation and we will continue to follow along with you. History of Present Illness Consult details Consult date: 09/17/24 Reason for consult: other (Small bowel obstruction) Requesting physician: Latrice Hyde PA-C Narrative: This is a 74-year-old man with PMH of microscopic colitis, fatty liver, chronic diarrhea, hypertension, pre diabetes, COPD, and ROMARIO, who we have been asked to see in surgical consultation for a small-bowel obstruction. He reports having right-sided and left-sided diffuse abdominal pain intermittently for the past few months that is associated with watery diarrhea. He has been following with his urologist due to suspected complications of his penile implant. He had been having tingling in his left groin down to his scrotum, which urology was following. He also recently had a colonoscopy as an outpatient due to his diarrhea. He does not notice any pattern to the abdominal pain, but reports that it is mild and typically goes away. Three days ago, he developed similar abdominal pain that seemed more severe. His pain was still associated with diarrhea. His pain remained constant and progressed over the next few days. He continued to have diarrhea, but no nausea or vomiting. He denies melena or hematochezia. Due to the intensity of his pain, he decided to come into [place] ED for evaluation. Vital signs were stable on arrival. [place] [address], hemoglobin 15.2, hematocrit 47, creatinine 1.1, glucose 167, and lactic acid 1.9. CT of the abdomen pelvis showed high-grade small-bowel obstruction and pneumatosis within multiple loops of dilated small bowel with a possible source of obstruction the left lower quadrant at the level of the patient's mechanism for his penile prostatic and nonobstructing fat and bowel containing left inguinal hernia. He had an NG tube placed and was transferred to [facility] for surgical evaluation. He is now seen on the medical floor this morning. His vital signs remain stable. He reports his abdominal pain has improved significantly. He is now rating the pain at 1/10. He reports feeling ?sore?. He has had 2-3 loose stools this morning and reports some stool when passing flatus. Still feels bloated, but improved. No other complaints at this time. Previous abdominal surgeries include a laparoscopic Jeb fundoplication and open ventral hernia repair with mesh. Denies having a bowel obstruction in the past. Review of Systems Review of Systems: All systems reviewed & are unremarkable except as noted in HPI and below PMFSH Past Medical History Medical History Prediabetes Chronic obstructive pulmonary disease Obstructive sleep apnea Benign prostatic hyperplasia Overactive bladder Mixed hyperlipidemia Vitamin D deficiency Ventral hernia without obstruction or gangrene Umbilical hernia without obstruction and without gangrene Tobacco use Nicotine dependence, unspecified, uncomplicated Lipoprotein deficiency Essential (primary) hypertension Erectile dysfunction Microscopic colitis, unspecified Chronic diarrhea Cervical spondyloarthritis Mixed hyperlipidemia Surgical History Surgical History History of penile implant History of cervical spinal surgery History of repair of rotator cuff Family History Family History Mother Hypertension Family history of elevated blood lipids Family history of malignant neoplasm of thyroid, Onset Age: 83 Patient's mother is Father Family history of liver disease, Onset Age: 79 Patient's father is Other Diabetes mellitus Family history of hypercholesterolemia Social History Social History Social History: Surrogate medical decision maker: Anthony Viveros, son. Code status: Full code. Smoking packs per day: 1 Smoking cigarettes per day: 20.0 Years smoked: 30 Smoking pack-years: 30.00 Smoking status: Former smoker Tobacco type: cigarettes Second hand tobacco smoke exposure: No Smoking end date: 02/12/21 Alcohol intake: current Drinks per week: 7 Alcohol use details: Occasionally Substance use: current Substance use type: marijuana Do You Feel Safe in your Home?: Yes Lack of Transportation: No Lack of Food: Never True Current Housing: I Have Housing Concerned About Future Housing: No Difficulty Paying Gas/Electric Bills: No Difficulty Paying for Meds: No Currently Unemployed: No Education: Trade/Vocational Certificate Difficulty w/ Childcare or Family Care: No Spiritual care concerns: No Meds Home Medications and Allergies Home Medications ?Medication ?Instructions ?Recorded ?Confirmed ?Type cholecalciferol (vitamin D3) 50 2,000 unit PO DAILY 06/25/19 09/17/24 History mcg (2,000 unit) capsule multivitamin 1 tablet PO DAILY 08/11/21 09/17/24 History finasteride 5 mg tablet 5 mg PO DAILY #30 tabs 03/05/22 09/17/24 Rx tamsulosin 0.4 mg capsule See Rx Instructions .Route 03/15/23 09/17/24 Rx .COMPLEX #90 caps omeprazole 40 mg capsule,delayed 40 mg PO DAILY 06/02/24 09/17/24 History release Allergies Allergy/AdvReac Type Severity Reaction Status Date / Time ibuprofen AdvReac Vomiting Verified 09/16/24 21:33 Vital Signs Vital Signs - 24 hr 09/17/24 03:00 09/17/24 03:30 Temperature 97 F L Pulse Rate 113 H Respiratory Rate 20 Blood Pressure 160/73 H Pulse Oximetry 96 Oxygen Delivery Room Air Exam Const: General: comfortable and no acute distress Nutritional Appearance: average body habitus Orientation/consciousness: patient oriented x3 HENMT: Head: normocephalic and atraumatic Ears: hearing grossly normal bilaterally Mouth: Yes moist mucous membranes Eyes: General: appearance normal, both eyes and all related structures Pupils: Equal, round and reactive pupils present Neck: Neck: normal visual inspection and full ROM Resp: Effort & Inspection: no respiratory distress Auscultation: clear to auscultation bilaterally Cardio: Rate: regular rate Rhythm: regular rhythm Peripheral pulses: Peripheral pulses 2+ throughout GI: Other: Abdomen mildly distended and soft. Small port site scars across upper to mid abdomen and periumbilical scar, nontender, no guarding or peritoneal signs, normal bowel sounds. Skin: General skin exam: normal color Neuro: General: moves all extremities and no focal motor deficits Speech: normal speech Motor exam (neuro): 5/5 motor strength present throughout Extrem: General: normal to inspection and no edema Psych: Mental Status: mental status grossly normal Attitude: cooperative Insight: Good insight present (Psych) Judgement: Good judgement present (Psych) Results Labs Labs: Abnormal lab results 09/17/24 09/17/24 Range/Units 05:39 06:38 POC Capillary Glucose 154 H (65-105) mg/dl Hemoglobin A1c 6.2 H (<5.7) % Diabetes panel 09/17/24 Range/Units 06:38 Hemoglobin A1c 6.2 H (<5.7) % All other labs normal. Imaging Additional studies: ITS Impressions Abdomen X-Ray 09/17/24 05:46 Impression: NG tube in satisfactory position.
--- NOTE | 2024-09-17 09:05 | P.PNIM_ITS ---
Progress Note: A&P Assessment and Plan (1) Small bowel obstruction: Code(s): K56.609 - Unspecified intestinal obstruction, unspecified as to partial versus complete obstruction Status: Acute (2) Prediabetes: Code(s): R73.03 - Prediabetes Status: Acute (3) Benign prostatic hyperplasia: Code(s): N40.0 - Benign prostatic hyperplasia without lower urinary tract symptoms Status: Acute (4) Chronic obstructive pulmonary disease: Code(s): J44.9 - Chronic obstructive pulmonary disease, unspecified Status: Acute (5) Obstructive sleep apnea: Code(s): G47.33 - Obstructive sleep apnea (adult) (pediatric) Status: Acute Plan The patient presented to the outside facility with complaints of intermittent abdominal pain for [address] scan shows high-grade small-bowel obstruction with pneumatosis - IV zosyn started - pt is NPO as Dr. Myles intends on taking him to surgery today. - small bowel xray ordered for today- surgery following - He is hemodynamically stable and lactic acid level was within normal limits - Analgesics and antiemetics are available as needed - CPAP will be provided for the patient to use while hospitalized - No acute issues with regards to COPD- add IS prior to surgery and after - He does not check his glucose at home. Accuchecks q6 while NPO. Hypoglycemic protocol.SS Time Spent With Patient Time with patient: 25 - 35 minutes Subjective Date/time seen: 09/17/24 09:05 Interval history: 74-year-old male with history of chronic diarrhea, microscopic colitis, fatty liver, hernia, hypertension, dyslipidemia, prediabetes, chronic obstructive pulmonary disease, ROMARIO who presented to the emergency department at the outside facility with complaints of abdominal pain. abd pain lasted about 4 days, intermittent, diffuse, and nonradiating. He has not noticed any exacerbating or alleviating factors. He reported 1 large episode of non bloody emesis prior to arrival to the ED. he has also had 3 loose stools (yesterday, 3/5) He had NG tube inserted and felt better with NG tube decompression. Pt denies fever, chills, sweats, chest pain, shortness of breath, hematemesis, melena, hematochezia, and dysuria. In the ED: Vital signs on arrival include a temperature of 36.1? C, pulse 96, respiratory 18, blood pressure 126/83, pulse 98% on room air. Labs were significant for WBC count of 16.1, hemoglobin 15.2, hematocrit 47.3%, creatinine 1.11, glucose 167, lactic acid 1.9. CT of the abdomen pelvis showed high-grade small-bowel obstruction and pneumatosis within multiple loops of dilated small bowel with a possible source of obstruction the left lower quadrant at the level of the patient's mechanism for his penile prostatic and nonobstructing fat and bowel containing left inguinal hernia. NG tube was inserted which yielded 1.5 L within a short period of time with improvement in his distension and pain. General surgeon, Dr. Myles, accepted the patient in consult and plans for surgery sometime today. Pt is seen and examined. just came back form small bowel xray. Reports bloating, nausea but no vomitting. NG in placed , clamped as pt just came back from xray. Review of Systems Review of Systems: 12 systems were reviewed and are negativ e except for as per HPI. Exam Narrative: General: Mildly ill-appearing gentleman the semi-Meza position in bed in no acute distress. Weight: 91 kg. BMI: 27.2 HEENT: Normocephalic, atraumatic. PERRL, EOMI. Sclera anicteric. NG tube in the right naris. Tacky mucous membranes. Neck: Supple. Respiratory: Lungs are clear to auscultation bilaterally. Cardiovascular: Regular rate and rhythm with S1-S2. Gastrointestinal: Abdomen is distended with hypoactive bowel sounds. He is tender to palpation throughout the lower abdomen. No guarding or rebound tenderness. Skin: Warm and dry. No rash or lesions on limited exam. Extremities: No cyanosis, clubbing, or edema. Radial and pedal pulses intact. Neurological: Alert. Cranial nerves 2-12 are grossly intact. No gross focal deficits to casual conversation. Psychiatric: Pleasant and cooperative with normal mood and affect. Judgment and insight intact. Objective Data Vital Signs Vital Signs: Vital Signs - 24 hr 09/17/24 03:00 09/17/24 03:30 Temperature 97 F L Pulse Rate 113 H Respiratory Rate 20 Blood Pressure 160/73 H Pulse Oximetry 96 Oxygen Delivery Room Air Intake/Output Intake/Output: Intake & Output 09/14/24 09/15/24 09/16/24 09/17/24 23:59 23:59 23:59 23:59 Intake Total 50 Output Total 100 Balance -50 Meds/Results Medications: Active Medications Generic Name Dose Route Start Last Admin Trade Name Regan PRN Reason Stop Dose Admin Dextrose 12.5 gm 09/17/24 03:07 Dextrose 50% 25 Gm/50 Ml Syringe IV PUSH PRN PRN Hypoglycemia Protocol Glucagon 1 mg 09/17/24 03:07 Glucagon For Inj 1 Mg Vial IM PRN PRN Hypoglycemia Protocol Glucose 15 gm 09/17/24 03:07 Glucose Oral Gel 15 Gm Of Glucse In 37.5 Gm Tube PO PRN PRN Hypoglycemia Protocol Lactated Ringer's 1,000 mls @ 100 mls/hr 09/17/24 03:10 09/17/24 03:34 Lr - Lactated Ringers Iv IV CONT 100 mls/hr .Q10H CHRISTINE Administration Dextrose 1,000 mls @ 100 mls/hr 09/17/24 03:07 Dextrose 5% 1,000 Ml IVPB PRN PRN Hypoglycemia Protocol Piperacillin/Tazobactam/Dextrose 3.375 gm in 50 mls @ 100 mls/hr 09/17/24 04:00 09/17/24 04:04 Zosyn 3.375 Gm/Ns 50 Ml IVPB Infused Q6H CHRISTINE Infusion Insulin Aspart 2 - 5 units 09/17/24 06:00 09/17/24 05:42 Insulin Aspart (*Bkc) 100 Units/Ml SUB-Q Not Given Q6HR [facility] Protocol Morphine Sulfate 2 mg 09/17/24 02:57 Morphine Sulfate (*Crx) 2 Mg/Ml Inj IV PUSH Q4H PRN Pain Rated 4-6 Morphine Sulfate 4 mg 09/17/24 02:57 Morphine Sulfate (*Crx) 4 Mg/Ml Inj IV PUSH Q4H PRN Pain Rated 7-10 Ondansetron HCl 4 mg 09/17/24 02:59 Ondansetron Inj 4 Mg/2 Ml Vial IV PUSH Q6H PRN Nausea And Vomiting Radiology Results: ITS Impressions Abdomen X-Ray 09/17/24 05:46 Impression: NG tube in satisfactory position. Labs Labs: Laboratory Results - last 24 hr 09/17/24 09/17/24 05:39 06:38 POC Capillary Glucose 154 H Hemoglobin A1c 6.2 H Quality VTE Prophylaxis VTE prophylaxis: mechanical ordered
[2024-09-17 11:51] LABS: Glucose Point of Care 122 mg/dl (65-105)
[2024-09-17 14:45] LABS: Hematocrit 39.3 % (42.0-52.0); Mean Corpuscular HGB Conc 33.1 g/dl (32-36); Mean Corpuscular Hemoglobin 30.7 pg (26-34); Mean Corpuscular Volume 92.7 fl (80-100); Mean Platelet Volume 10.3 fl (7.4-10.4); Platelet Count Result 196 k/mm3 (150-375); Red Blood Count 4.24 M/mm3 (4.6-6.20); Red Cell Distribution Width 13.2 % (11.5-14.5); White Blood Count 11.8 K/mm3 (4.5-10.0)
[2024-09-17 14:49] VITALS: BP 154/70; PULSE 87; RESP 18; TEMP 36.4; O2SAT 96
[2024-09-17 14:54] LABS: Lactic Acid Reflex 2.7 mmol/L (0.7-2.0)
[2024-09-17 14:55] LABS: Alanine Aminotransferase 26 U/L (6-50); Albumin Level 3.5 g/dL (3.5-5.1); Alkaline Phosphatase 67 U/L (38-126); Anion Gap 8 mmol/L (4-12); Aspartate Amino Transferase 23 U/L (17-59); Blood Urea Nitrogen 12 mg/dL (9-20); Calcium 8.5 mg/dL (8.4-10.2); Carbon Dioxide 26 mmol/L (22-30); Chloride 108 mmol/L (98-107); Estimated CRCL calculation 78 ml/min; Estimated Glomerular Filt Rate > 60; Glucose 209 mg/dL (65-110); Potassium 3.5 mmol/L (3.4-5.0); Sodium 142 mmol/L (137-145)
[2024-09-17] MEDS: PANTOPRAZOLE 40 MG TABLET PO (16:35)
[2024-09-17] MEDS: TAMSULOSIN HCL 0.4 MG CAPSULE BY MOUTH (17:23)
[2024-09-17 17:43] LABS: Reflex Lactic Acid Yes or No Add Lactic
[2024-09-17 18:06] LABS: Lactic Acid 0.9 mmol/L (0.7-2.0)
[2024-09-17 20:22] VITALS: BP 143/72; PULSE 82; RESP 18; TEMP 36.8; O2SAT 95
[2024-09-18] VITALS: BP 137/50; PULSE 69; RESP 16; TEMP 36.6; O2SAT 94
[2024-09-18 00:02] LABS: Glucose Point of Care 118 mg/dl (65-105)
[2024-09-18 02:07] VITALS: PULSE 66; O2SAT 96
[2024-09-18] MEDS: LACTATED RINGERS 1,000 ML 100 ML IV CONT (02:36)
[2024-09-18 04:00] VITALS: BP 122/57; PULSE 72; RESP 16; TEMP 36.6; O2SAT 97
[2024-09-18 04:57] LABS: Glucose Point of Care 109 mg/dl (65-105)
[2024-09-18 05:50] LABS: Hematocrit 38.6 % (42.0-52.0); Hemoglobin 12.6 g/dL (14.0-18.0); Mean Corpuscular HGB Conc 32.6 g/dl (32-36); Mean Corpuscular Hemoglobin 30.5 pg (26-34); Mean Corpuscular Volume 93.5 fl (80-100); Mean Platelet Volume 10.4 fl (7.4-10.4); Platelet Count Result 175 k/mm3 (150-375); Red Blood Count 4.13 M/mm3 (4.6-6.20); Red Cell Distribution Width 13.3 % (11.5-14.5); White Blood Count 8.1 K/mm3 (4.5-10.0)
[2024-09-18 06:01] LABS: Alanine Aminotransferase 21 U/L (6-50); Albumin Level 3.1 g/dL (3.5-5.1); Alkaline Phosphatase 62 U/L (38-126); Anion Gap 4 mmol/L (4-12); Aspartate Amino Transferase 22 U/L (17-59); Bilirubin,Total 1.1 mg/dL (0.2-1.3); Blood Urea Nitrogen 11 mg/dL (9-20); Carbon Dioxide 28 mmol/L (22-30); Chloride 107 mmol/L (98-107); Estimated CRCL calculation 79 ml/min; Estimated Glomerular Filt Rate > 60; Glucose 106 mg/dL (65-110); Magnesium 1.8 mg/dL (1.6-2.3); Potassium 3.7 mmol/L (3.4-5.0); Sodium 139 mmol/L (137-145)
[2024-09-18 06:02] LABS: INR 1.3
[2024-09-18 08:00] VITALS: BP 138/75; PULSE 63; RESP 16; TEMP 36.3; O2SAT 99
[2024-09-18] MEDS: CHOLECALCIFEROL 1,000 UNITS TABLET 2000 UNITS PO (08:57)
[2024-09-18] MEDS: FINASTERIDE 5 MG TABLET PO (08:58)
[2024-09-18] MEDS: PANTOPRAZOLE 40 MG TABLET PO (08:58)
--- NOTE | 2024-09-18 11:22 | WPDPN ---
Progress Note: A&P Assessment and Plan (1) Small bowel obstruction: Code(s): K56.609 - Unspecified intestinal obstruction, unspecified as to partial versus complete obstruction Status: Inactive Assessment and Plan: Small-bowel obstruction resolved. Abdomen is now benign. Tolerating diet. Patient be discharged from general surgery standpoint today. No need for follow-up in the General surgery office after discharge. Patient follow-up with primary care doctor. Subjective Date/time seen: 09/18/24 11:22 Interval history: Patient is doing well today. Continues to have bowel movements. No abdominal pain or nausea. Small-bowel follow-through study yesterday showed rapid transit of contrast to the colon 30minutes. No evidence of small-bowel obstruction. He has tolerated liquids and then was advanced to solid food without any difficulty. Exam GI: Other: Abdomen is soft and nondistended. Benign. Objective Data Vital Signs Vital Signs: Vital Signs - 24 hr 09/17/24 14:49 09/17/24 20:00 09/17/24 20:22 Temperature 36.4 C 36.8 C Pulse Rate 87 82 Respiratory Rate 18 18 Blood Pressure 154/70 H 143/72 H Pulse Oximetry 96 95 Oxygen Delivery Room Air 09/18/24 00:00 09/18/24 02:07 09/18/24 04:00 Temperature 36.6 C 36.6 C Pulse Rate 69 66 72 Respiratory Rate 16 16 Blood Pressure 137/50 L 122/57 L Pulse Oximetry 94 96 97 Oxygen Delivery 09/18/24 08:00 09/18/24 08:00 Temperature 36.3 C L Pulse Rate 63 Respiratory Rate 16 Blood Pressure 138/75 Pulse Oximetry 99 Oxygen Delivery Room Air Intake/Output Intake/Output: Intake & Output 09/15/24 09/16/24 09/17/24 09/18/24 23:59 23:59 23:59 23:59 Intake Total 1340 1490 Output Total 100 Balance 1240 1490 Meds/Results Medications: Active Medications Generic Name Dose Route Start Last Admin Trade Name Freq PRN Reason Stop Dose Admin Dextrose 12.5 gm 09/17/24 03:07 Dextrose 50% 25 Gm/50 Ml Syringe IV PUSH PRN PRN Hypoglycemia Protocol Finasteride 5 mg 09/18/24 09:00 09/18/24 08:58 Finasteride 5 Mg Tablet PO 5 mg DAILY CHRISTINE Administration Glucagon 1 mg 09/17/24 03:07 Glucagon For Inj 1 Mg Vial IM PRN PRN Hypoglycemia Protocol Glucose 15 gm 09/17/24 03:07 Glucose Oral Gel 15 Gm Of Glucse In 37.5 Gm Tube PO PRN PRN Hypoglycemia Protocol Lactated Ringer's 1,000 mls @ 100 mls/hr 09/17/24 03:10 09/18/24 02:36 Lr - Lactated Ringers Iv IV CONT 100 mls/hr .Q10H CHRISTINE Administration Dextrose 1,000 mls @ 100 mls/hr 09/17/24 03:07 Dextrose 5% 1,000 Ml IVPB PRN PRN Hypoglycemia Protocol Insulin Aspart 2 - 5 units 09/17/24 06:00 09/18/24 05:24 Insulin Aspart (*Bkc) 100 Units/Ml SUB-Q Not Given Q6HR CHRISTINE Protocol Morphine Sulfate 2 mg 09/17/24 02:57 Morphine Sulfate (*Crx) 2 Mg/Ml Inj IV PUSH Q4H PRN Pain Rated 4-6 Morphine Sulfate 4 mg 09/17/24 02:57 Morphine Sulfate (*Crx) 4 Mg/Ml Inj IV PUSH Q4H PRN Pain Rated 7-10 Ondansetron HCl 4 mg 09/17/24 02:59 Ondansetron Inj 4 Mg/2 Ml Vial IV PUSH Q6H PRN Nausea And Vomiting Pantoprazole Sodium 40 mg 09/17/24 17:00 09/18/24 08:58 Pantoprazole 40 Mg Tablet PO 40 mg BID CHRISTINE Administration Tamsulosin HCl 0.4 mg 09/17/24 18:00 09/17/24 17:23 Tamsulosin Hcl 0.4 Mg Capsule BY MOUTH 0.4 mg EVENING CHRISTINE Administration Vitamin D 2,000 units 09/18/24 09:00 09/18/24 08:57 Cholecalciferol 1,000 Units Tablet PO 2,000 units DAILY CHRISTINE Administration Radiology Results: ITS Impressions Abdomen X-Ray 09/17/24 05:46 Impression: NG tube in satisfactory position. Small Bowel X-Ray 09/17/24 10:39 IMPRESSION: 1. Normal small bowel follow-through with resolution of prior small bowel obstruction versus ileus. Labs Labs: Laboratory Results - last 24 hr 09/17/24 09/17/24 09/17/24 11:48 14:41 17:51 WBC 11.8 H RBC 4.24 L Hgb 13.0 L Hct 39.3 L MCV 92.7 MCH 30.7 MCHC 33.1 RDW 13.2 Plt Count 196 MPV 10.3 PT INR Sodium 142 Potassium 3.5 Chloride 108 H Carbon Dioxide 26 Anion Gap 8 BUN 12 Creatinine 0.79 Estim Creat Clear Calc 78 Estimated GFR > 60 Glucose 209 H POC Capillary Glucose 122 H Lactic Acid 2.7 H 0.9 Calcium 8.5 Magnesium Total Bilirubin 1.0 AST 23 ALT 26 Alkaline Phosphatase 67 Total Protein 7.0 Albumin 3.5 Blood Type A Positive Antibody Screen Negative 09/17/24 09/18/24 09/18/24 23:58 04:53 05:41 WBC 8.1 RBC 4.13 L Hgb 12.6 L Hct 38.6 L MCV 93.5 MCH 30.5 MCHC 32.6 RDW 13.3 Plt Count 175 MPV 10.4 PT 16.0 H INR 1.3 Sodium 139 Potassium 3.7 Chloride 107 Carbon Dioxide 28 Anion Gap 4 BUN 11 Creatinine 0.78 Estim Creat Clear Calc 79 Estimated GFR > 60 Glucose 106 POC Capillary Glucose 118 H 109 H Lactic Acid Calcium 8.0 L Magnesium 1.8 Total Bilirubin 1.1 AST 22 ALT 21 Alkaline Phosphatase 62 Total Protein 6.0 L Albumin 3.1 L Blood Type Antibody Screen
--- NOTE | 2024-09-18 12:50 | PM.DS ---
DS: Admitting Diagnosis Discharge Date 09/18/2024 Admitting Diagnosis Abdominal pain DS: Discharge Diagnosis Discharge Diagnosis (1) Small bowel obstruction: Code(s): K56.609 - Unspecified intestinal obstruction, unspecified as to partial versus complete obstruction Status: Inactive (2) Prediabetes: Code(s): R73.03 - Prediabetes Status: Acute (3) Benign prostatic hyperplasia: Code(s): N40.0 - Benign prostatic hyperplasia without lower urinary tract symptoms Status: Acute (4) Chronic obstructive pulmonary disease: Code(s): J44.9 - Chronic obstructive pulmonary disease, unspecified Status: Acute (5) Obstructive sleep apnea: Code(s): G47.33 - Obstructive sleep apnea (adult) (pediatric) Status: Acute DS: Summary Hospital Course Hospital Course: The patient presented to the outside facility with complaints of intermittent abdominal pain for [address] scan shows high-grade small-bowel obstruction with pneumatosis - IV zosyn started -WBC count NG was placed decompression. Follow-up water so was small-bowel series performed 09/17/2024 showed rapid transit of contrast through the whole small bowel into the colon at 30 minutes with no evidence of small-bowel obstruction. NG tube was removed and was started on diet which he tolerated well. Is okay per General surgery to discharge and follow-up with PCP. Time Spent with Patient Time attestation: Total time spent providing and/or coordinating discharge services: 35 minutes Exam Narrative: General: Well-appearing gentleman the semi-Meza position in bed in no acute distress. HEENT: Normocephalic, atraumatic. PERRL, EOMI. Sclera anicteric. NG tube in the right naris. Tacky mucous membranes. Neck: Supple. Respiratory: Lungs are clear to auscultation bilaterally. Cardiovascular: Regular rate and rhythm with S1-S2. Gastrointestinal: Abdomen is soft nontender, No guarding or rebound tenderness. Skin: Warm and dry. No rash or lesions on limited exam. Extremities: No cyanosis, clubbing, or edema. Radial and pedal pulses intact. Neurological: Alert. Cranial nerves 2-12 are grossly intact. No gross focal deficits to casual conversation. Psychiatric: Pleasant and cooperative with normal mood and affect. Judgment and insight intact. DS: Data Data Completed and Pending Labs on day of discharge: Labs from last 24 hours 09/18/24 09/18/24 09/17/24 05:41 04:53 23:58 WBC 8.1 RBC 4.13 L Hgb 12.6 L Hct 38.6 L MCV 93.5 MCH 30.5 MCHC 32.6 RDW 13.3 Plt Count 175 MPV 10.4 PT 16.0 H INR 1.3 Sodium 139 Potassium 3.7 Chloride 107 Carbon Dioxide 28 Anion Gap 4 BUN 11 Creatinine 0.78 Estim Creat Clear Calc 79 Estimated GFR > 60 Glucose 106 POC Capillary Glucose 109 H 118 H Lactic Acid Calcium 8.0 L Magnesium 1.8 Total Bilirubin 1.1 AST 22 ALT 21 Alkaline Phosphatase 62 Total Protein 6.0 L Albumin 3.1 L Blood Type Antibody Screen 09/17/24 09/17/24 17:51 14:41 WBC 11.8 H RBC 4.24 L Hgb 13.0 L Hct 39.3 L MCV 92.7 MCH 30.7 MCHC 33.1 RDW 13.2 Plt Count 196 MPV 10.3 PT INR Sodium 142 Potassium 3.5 Chloride 108 H Carbon Dioxide 26 Anion Gap 8 BUN 12 Creatinine 0.79 Estim Creat Clear Calc 78 Estimated GFR > 60 Glucose 209 H POC Capillary Glucose Lactic Acid 0.9 2.7 H Calcium 8.5 Magnesium Total Bilirubin 1.0 AST 23 ALT 26 Alkaline Phosphatase 67 Total Protein 7.0 Albumin 3.5 Blood Type A Positive Antibody Screen Negative Imaging Radiologist's impression: ITS Impressions Abdomen X-Ray 09/17/24 05:46 Impression: NG tube in satisfactory position. Small Bowel X-Ray 09/17/24 10:39 IMPRESSION: 1. Normal small bowel follow-through with resolution of prior small bowel obstruction versus ileus. Discharge Plan Discharge Attending physician on discharge: Evelio Dorsey Consulting providers: Kirk Myles Discharging Clinician: Evelio Dorsey Anticipated Discharge Date/Time: 09/18/24 12:53 Patient Disposition: Home, Self-Care Activity: as tolerated Diet: heart healthy Discharge Instructions: Patient may discharge at discretion of hospitalist service. No need for follow-up in general surgery clinic after discharge. No activity or diet restrictions after discharge from surgery standpoint. Patient follow-up his primary care physician. Patient Instructions: Antibiotic Form Patient Language: Citizen Of [place] Stand Alone Forms: General Discharge Information Follow-up/Referrals: Mai,Terrie Miranda MD [Primary Care Provider] - 1 Week Discharge Medications: Continued multivitamin Tablet 1 tablet PO DAILY omeprazole 40 mg capsule,delayed release(DR/EC) 40 mg PO DAILY cholecalciferol (vitamin D3) 50 mcg (2,000 unit) capsule 2,000 unit PO DAILY finasteride 5 mg tablet 5 mg PO DAILY Qty: 30 2RF tamsulosin 0.4 mg capsule See Rx Instructions .ROUTE .COMPLEX Qty: 90 1RF Dose Instruction: TAKE ONE CAPSULE BY MOUTH DAILY 30 MINUTES AFTER SAME MEAL Rx Instructions: TAKE ONE CAPSULE BY MOUTH DAILY 30 MINUTES AFTER SAME MEAL Date of admission: 09/17/24 02:57 Primary Care Provider: Mai,Terrie Miranda Admitting Provider: Eulalio Rogers Attending physician on admission: Eulalio Rogers Condition: Improved
== END 2024-09-18 14:05 | disposition home or self-care (01) | DRG 390 ==
PROVIDERS: Nurse Practitioner Family; Physician Assistant; Admitting Provider Internal Medicine; PCP Family Medicine; Visit Provider Internal Medicine
DX: K56.609 Unspecified intestinal obstruction, unspecified as to partial versus complete obstruction (principal); I10 Essential (primary) hypertension; J44.9 Chronic obstructive pulmonary disease, unspecified; E78.5 Hyperlipidemia, unspecified; E78.2 Mixed hyperlipidemia; E55.9 Vitamin D deficiency, unspecified; E78.6 Lipoprotein deficiency; N32.81 Overactive bladder; N40.0 Benign prostatic hyperplasia without lower urinary tract symptoms; K40.90 Unilateral inguinal hernia, without obstruction or gangrene, not specified as recurrent; M47.812 Spondylosis without myelopathy or radiculopathy, cervical region; R73.03 Prediabetes; G47.33 Obstructive sleep apnea (adult) (pediatric); Z87.891 Personal history of nicotine dependence
CPT/HCPCS: 36415; 74250; 80053; 82948; 83036; 83605; 83735; 85027; 85610; 86850; 86900; 86901; 93005; A9270; J2543; J7120

== ENCOUNTER 2025-01-06 07:07 | Outpatient (CLI) | payer MEDICARE, BC, SELFPAY ==
--- NOTE | ~2025-01-06 | XR_ITS ---
3 VIEWS LUMBAR SPINE Ordering provider: Nathaly Schneider PA-C History: . M54.50 - Low back pain, unspecified . Comparison: None. FINDINGS: VERTEBRAL BODIES: No visible fracture or subluxation. Degenerative changes of the spine. DISK SPACES: Narrowing of the disc L1-L2, L2-L3 and L5-S1. Multilevel facet joint disease. SOFT TISSUES: Atherosclerotic changes of the aorta. IMPRESSION: No acute osseous abnormality lumbar spine. Multilevel degenerative disc disease. Reviewed, dictated and finalized at location A.
--- NOTE | ~2025-01-06 | XR_ITS ---
XR hip RT min 2V Ordering provider: Nathaly Schneider PA-C History: . M25.559 - Pain in unspecified hip . Comparison: None. FINDINGS: BONES: No acute fracture or dislocation. HIP JOINT SPACES: Severe narrowing of the right joint. PUBIC SYMPHYSIS: Normal. SOFT TISSUES: Normal. IMPRESSION: No acute osseous abnormality pelvis and right hip. Severe osteoarthritic changes of the right hip. Reviewed, dictated and finalized at location A.
== END 2025-01-06 07:08 | disposition home or self-care (01) ==
PROVIDERS: PCP Family Medicine
DX: M51.369 Other intervertebral disc degeneration, lumbar region without mention of lumbar back pain or lower extremity pain (principal); M16.11 Unilateral primary osteoarthritis, right hip
CPT/HCPCS: 72100; 73502

== ENCOUNTER 2025-01-11 14:28 | Outpatient (RCR) | payer MEDICARE, BC, SELFPAY ==
--- NOTE | 2025-01-11 16:19 | OPREHPOC ---
Outpatient Therapy Plan of Care This is a Multidisciplinary Plan of Care that may contain components documented by all disciplines (PT, OT, and ST.) PT Problem 1 PT Problem #1 Knowledge Deficit PT Goal 1 Goal / Goal Update Independent and compliant with HEP. Target Visit 4 PT Problem 2 PT Problem #2 Pain PT Goal 1 Goal / Goal Update Pt to report no pain at rest. Pt to report no more than 1/10 pain with walking/ exercise. Target Visit 8 PT Problem 3 PT Problem #3 Impaired Strength PT Goal 1 Goal / Goal Update Pt to improve abdominal strength to 4+/5. Target Visit 8 PT Problem 4 PT Problem #4 Impaired Functional Mobility PT Goal 1 Goal / Goal Update Pt to report 10% or less perceived disability on LEFS. Target Visit 8
--- NOTE | 2025-01-11 16:19 | PTOPEVAL1 ---
Assessment and note entered by Miriam Solitario, PT Evaluation Information Assessment Status Evaluation ICD-10 Condition Codes (PT) Pain in right hip M25.551 Onset 10/11/24 Subjective Information Pt reports onset of R hip pain that started at the end of September. States he went to a [place] game and did a lot of walking and then started having hip pain. He reports his pain varies in location and points to the side and back of the hip, and also reports he experiences burning and pain that goes down the leg. He does report a history of neck surgery and low back pain and than his numbness/ tingling can go down both legs as well. Also reports he was trampled by a horse when he was young and that it messed up his R knee, feels like this has potentially caused his hip and back problems. Sees the chiropractor every 2 weeks and currently does water aerobics 3x/week. 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 Reported Pain Level Pain Score Moderate Pain: Myles Hale Assessment PT Clinical Summary Mr. Viveros is a 74 yo male who presents for skilled PT evaluation for R hip pain. He presents with R hip pain that worsens with walking/activity and varies in location from the lateral side of the hip to the back of the hip in the gluteal region. Pt also demonstrates moderate to severe hamstring and piriformis mm tightness bilaterally (R>L). Hip pain and burning sensation is reproduced with active and resisted hip abduction, as well as reproduction of hip pain with end- range hip flexion and hip IR. Upon objective examination pt's symptoms are consistent with trochanteric bursitis, but given his history of low back pain this region cannot be fully excluded as a cause for symptoms (however no pain or radicular symptoms were reproduced with lumbar testing this date). Pt will benefit from skilled PT to reduce pain/inflammation and improve hip/ lumbar stability to return to daily functional, recreational, and occupational tasks with less pain. Plan of Care Interventions Electrical Stimulation,Gait Training,Hot Pack/Cold Pack,Manual Therapy,Neuro Re-education,Patient/ Caregiver Education,Therapeutic Activities, Therapeutic Exercise,Self-Care/Home Management Other Interventions TPDN PT Services Indicated Yes Treatment Frequency and 2x/week for 8 visits Duration These treatments will address the objective and functional deficits as defined above. The patient will be advanced safely and appropriately in order for the patient to progress towards his/her prior level of function. Additional exercises will be introduced and as well as a comprehensive home exercise program upon discharge, if needed, ?to ensure carryover of functional gains achieved in the clinic. This treatment plan has been reviewed and agreement upon by the patient.
--- NOTE | 2025-02-04 07:55 | OPREHPOC ---
Outpatient Therapy Plan of Care This is a Multidisciplinary Plan of Care that may contain components documented by all disciplines (PT, OT, and ST.) PT Problem 1 PT Problem #1 Knowledge Deficit PT Goal 1 Goal / Goal Update Independent and compliant with HEP. Target Visit 4 Progress Met PT Problem 2 PT Problem #2 Pain PT Goal 1 Goal / Goal Update Pt to report no pain at rest. Pt to report no more than 1/10 pain with walking/ exercise. Target Visit 8 Progress Not Met PT Problem 3 PT Problem #3 Impaired Strength PT Goal 1 Goal / Goal Update Pt to improve abdominal strength to 4+/5. - progressing Target Visit 8 Progress Not Met PT Problem 4 PT Problem #4 Impaired Functional Mobility PT Goal 1 Goal / Goal Update Pt to report 10% or less perceived disability on LEFS. Target Visit 8 Progress Not Met
--- NOTE | 2025-02-04 07:55 | PTOPDC ---
Assessment and note entered by Miriam Solitario, PT Evaluation Information Assessment Status Discharge ICD-10 Condition Codes (PT) Pain in right hip M25.551 Onset 10/11/24 Subjective Information Pt reports he never knows how his hip is going to feel when he wakes up, and this morning it's feeling worse. He notes pain and tingling down the R leg into his foot as well as pain in his groin region. He specifically notes severe pain on the lateral side of his R hip when he bears weight on it like during walking. Reported Pain Level Pain Score 7: Self Report Assessment PT Clinical Summary Mr. Viveros presents for his 8 skilled PT visit today. He notes his symptoms vary but today they are worse and he is also experiencing more pain and tingling down the R leg in addition to R groin region pain. Despite these subjective complaints, pt's radicular symptoms cannot be reproduced with special testing. Due to lack of progress and persistence of symptoms it is recommended pt return to his doctor for further evaluation and to discuss additional treatment options to reduce his pain. Educated pt in exercise progressions and added these to HEP and pt verbalized and demonstrated understanding. Plan of Care PT Services Indicated No
== END 2025-02-04 20:00 | disposition home or self-care (01) ==
LOC: CHSPT 14:28
DX: M25.551 Pain in right hip (principal)
CPT/HCPCS: 97012; 97110; 97112; 97140; 97161; 97530